=== PATIENT | female | born 1940 | race Caucasian/White ===

== ENCOUNTER 2023-11-07 14:43 | Outpatient (AMB) | payer MEDICARE, SELFPAY ==
[2023-11-07 14:44] VITALS: BP 172/66; PULSE 59; O2SAT 98; BMI 22.3
--- NOTE | 2023-11-07 14:44 | HO.NEPHOV ---
Vital Signs 11/07/23 14:44 Height 5 ft Weight 114 lb BMI 22.3 BP 172/66 H Blood Pressure Location Lt brachial Position Sitting Pulse 59 Pulse Source Pulse Oximeter Pulse Oximetry (%) 98 Oxygen Delivery Method Room Air Intake Visit Reasons: Continuing care- CKD/ confirmed Billing Specialist Required: No Accompanied by: Self / Same As Patient Allergies gluten Allergy (Unknown, Verified 11/07/23 14:46) Diarrhea milk protein Allergy (Unknown, Uncoded 11/05/23 14:30) Nausea and Vomiting tilactase Allergy (Unknown, Uncoded 11/05/23 14:30) Diarrhea HPI Comments Details: Amrita is a pleasant 82-year-old woman with a history of longstanding hypertension with 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 She has superimposed white coat effect. Overall she is done well since the last visit. No new complaints today. She has been monitoring blood pressure at home. Home blood pressure readings are excellent with most readings staying in the 120-130 mm Hg systolic. Occasionally she is got systolic in the 100 range. In no hypertensive episodes. She exercises regularly. She walks about 6 miles a day. She has on a gluten free diet She had leg edema while she was on amlodipine 10 mg a day. Currently she is on 5 mg b.i.d. without significant edema. [facility], [facility] Medical History (Updated 11/07/23 @ 15:03 by Zack Santiago MD) FH: CABG (coronary artery bypass surgery) Surgical History H/O: hysterectomy Hx of cataract surgery Family History Mother Stroke Heart disease Hypertension Review of Systems Const Denies fever(s) and Denies weight loss Card Denies chest pain Resp Denies cough and Denies hemoptysis GI Denies abdominal pain, Denies diarrhea and Denies nausea Musc Denies back pain Neuro Denies focal weakness Physical Exam Vital Signs: Last Vital Signs Pulse 59 11/07/23 14:44 BP 172/66 H 11/07/23 14:44 Pulse Ox 98 11/07/23 14:44 Oxygen Delivery Method Room Air 11/07/23 14:44 BMI result Body Mass Index 22.3 Const General: comfortable; No acute distress Orientation/consciousness: patient oriented x3 Eyes General: appearance normal, both eyes and all related structures Visual Clement: normal visual clement by confrontation Neck Neck: Yes supple and Yes no JVD Resp Effort & Inspection: normal respiratory effort and respiratory effort not decreased Auscultation: rhonchi Cardio Palpation: no palpable S3 and no palpable S4 Heart sounds: no rubs GI Inspection: Yes normal to inspection Palpation (GI): Soft to palpation Percussion: Yes normal to percussion Auscultation: normal bowel sounds General: Yes no CVA tenderness Back/Spine/Pelvis Back: no CVA tenderness Skin General skin exam: no petechiae and no purpura Neuro General: patient oriented x3 and no focal motor deficits Extrem General: No clubbing and No edema Results Reviewed Nephrology Results: No Data to Display Assessment & Plan Assessment & Plan (1) HTN (hypertension): Code(s): I10 - Essential (primary) hypertension Category: Medical Plan Amrita is a 82-year-old woman with a history of well-controlled hypertension based on home blood pressure readings. Office readings elevated due to superimposed white coat effect. At this point I have encouraged her to keep monitoring blood pressure at home. Stay on low-sodium diet I have not made any changes to the antihypertensive regimen. 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 Renal function stable with a creatinine 1.0. Continue overt nephrotoxic agents including NSAIDs in maintain A1c less than 7%. Orders: Orders Basic Metabolic Panel 5 Months I10 - Essential (primary) hypertension Coding Level of Care Code Est Pt Level 4 (20297) Diagnoses HTN (hypertension) I10
== END 2023-11-07 15:06 | disposition home or self-care (01) ==
PROVIDERS: PCP Nurse Practitioner Family; Visit Provider Internal Medicine Hypertension Specialist
DX: I10 Essential (primary) hypertension (principal)
CPT/HCPCS: 99214

== ENCOUNTER → 2023-11-07 14:43 | Outpatient (BNVA) | payer MEDICARE, SELFPAY | PROVIDERS: PCP Nurse Practitioner Family; Visit Provider Internal Medicine Hypertension Specialist | DX: I12.9 Hypertensive chronic kidney disease with stage 1 through stage 4 chronic kidney disease, or unspecified chronic kidney disease (principal); N18.9 Chronic kidney disease, unspecified | CPT/HCPCS: 99212 ==

== ENCOUNTER 2024-07-23 15:00 | Outpatient (AMB) | payer MEDICARE, SELFPAY ==
[2024-07-23 15:00] VITALS: BP 178/70; PULSE 61; O2SAT 98; BMI 20.9
--- NOTE | 2024-07-23 15:00 | HO.NEPHOV ---
Vital Signs 07/23/24 15:00 Height 5 ft Weight 107 lb BMI 20.9 BP 178/70 H Blood Pressure Location Lt brachial Position Sitting Pulse 61 Pulse Source Pulse Oximeter Pulse Oximetry (%) 98 Oxygen Delivery Method Room Air Intake Visit Reasons: R/S 06/18/2024/ Conf Customer Care Voice Consultant Required: No Accompanied by: Spouse Allergies gluten Allergy (Unknown, Verified 07/23/24 15:02) Diarrhea milk protein Allergy (Unknown, Uncoded 11/05/23 14:30) Nausea and Vomiting tilactase Allergy (Unknown, Uncoded 11/05/23 14:30) Diarrhea Medication List - Last Reconciled 07/23/24 by Zack Santiago MD amlodipine 5 mg PO BID clopidogrel 75 mg PO DAILY fenofibric acid (choline) 135 mg PO DAILY hydrochlorothiazide 25 mg PO DAILY L.acidoph,paracasei,B.animalis cells PO DAILY levothyroxine (Synthroid) 25 mcg PO DAILY lisinopril 40 mg PO DAILY metformin 500 mg PO DAILY qvxdevia-iloaozi-fgav-lutein 1 tab PO DAILY rosuvastatin 20 mg PO BEDTIME vitamin B complex 1 cap PO DAILY HPI Comments Details: Amrita is a pleasant 83-year-old woman with a history of longstanding hypertension with 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 She has superimposed white coat effect. Overall she is done well since the last visit. No new complaints today. She has been monitoring blood pressure at home. Home blood pressure readings are excellent with most readings staying in the 120-130 mm Hg systolic. Occasionally she is got systolic in the 100 range. In no hypertensive episodes. She exercises regularly. She walks about 6 miles a day. She has on a gluten free diet She had leg edema while she was on amlodipine 10 mg a day. Currently she is on 5 mg b.i.d. without significant edema. [facility] Medical History (Updated 11/07/23 @ 15:03 by Zack Santiago MD) FH: CABG (coronary artery bypass surgery) Surgical History H/O: hysterectomy Hx of cataract surgery Family History Mother Stroke Heart disease Hypertension Physical Exam Vital Signs: Last Vital Signs Pulse 61 07/23/24 15:00 Pulse Ox 98 07/23/24 15:00 Oxygen Delivery Method Room Air 07/23/24 15:00 BMI result Body Mass Index 20.9 Const General: comfortable; No acute distress Orientation/consciousness: patient oriented x3 Eyes General: appearance normal, both eyes and all related structures Visual Clement: normal visual clement by confrontation Neck Neck: Yes supple and Yes no JVD Resp Effort & Inspection: normal respiratory effort and respiratory effort not decreased Cardio Palpation: no palpable S3 and no palpable S4 Heart sounds: no rubs GI Inspection: Yes normal to inspection Palpation (GI): Soft to palpation Percussion: Yes normal to percussion Auscultation: normal bowel sounds General: Yes no CVA tenderness Back/Spine/Pelvis Back: no CVA tenderness Skin General skin exam: no petechiae and no purpura Neuro General: patient oriented x3 and no focal motor deficits Extrem General: No clubbing and No edema Results Reviewed Nephrology Results: No Data to Display Assessment & Plan Assessment & Plan (1) HTN (hypertension): Code(s): I10 - Essential (primary) hypertension Category: Medical Plan Amrita is a 83-year-old woman with a history of well-controlled hypertension based on home blood pressure readings. Office readings elevated due to superimposed white coat effect. At this point I have encouraged her to keep monitoring blood pressure at home. Stay on low-sodium diet I have not made any changes to the antihypertensive regimen. 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 Renal function stable with a creatinine 0.9 Continue to avoid nephrotoxic agents including NSAIDs and maintain A1c less than 7%. Coding Level of Care Code Est Pt Level 4 (02846) Diagnoses HTN (hypertension) I10
--- OUTSIDE RECORDS SUMMARY | 2024-07-23 18:30 | XMS_ITS | Encounter Summary ---
Author Organization [facility] Address [address] [place] [address] Care Team Providers Care Cross Country And Track And Field Coach Name Role Phone Latesha Lang APRN Primary Care Provider Audrey Farooq MD Unavailable [phone] Katlin Rodriguez APRN Unavailable [phone] Jorge Abreu MD Unavailable Donato Hale MD Unavailable [phone] Zack Santiago MD Unavailable [phone] Zack Santiago MD Unavailable [phone] Donato Hale MD Unavailable Encounter Details Date Type Department Care Team (Late st Contact Info) Description 02/16/2020 Scanned Document [address] [address] Provider, Generic Social History Tobacco Use Types Packs/Day Years Used Date Smoking Tobacco: Never Smokeless Tobacco: Never Alcohol Use Standard Drinks/Week Comments No 0 (1 standard drink = 0.6 oz pur e alcohol) Sex and Gender Information Value Date Recorded Sex Assigned at Not on file Gender Identity Not on file Sexual Orientation Not on file COVID-19 Exposure Response Date Recorded In the last month, have you been in contact with someone who was confirmed or suspected to have Coronavirus / COVID-19? No / Unsure 01/27/2020 4:27 PM EDT documented as of this encounter Plan of Treatment Upcoming Encounters Date Type Department Care Team (Late st Contact Info) Description 09/01/2024 11:00 AM EDT Office Visit [facility] [place] [address] [place] [address] Latesha Lang APRN [address] [facility], [place] [id number] documented as of this encounter Visit Diagnoses Not on filedocumented in this encounter Care Teams Cross Country And Track And Field Coach Relationship Specialty Start Date End Date Latesha Lang APRN [address] [place] [address] PCP - General Family Medicine 01/18/15 Audrey aFrooq MD 1244 [facility], [place] [id number] Physician Ophthalmology 03/13/18 02/27/24 Katlin Rodriguez APRN [address] [address] Tube Washer 03/13/18 02/27/24 Jorge Abreu MD [address] [place] [address] [place] [address] Physician Urology 03/13/18 02/27/24 Donato Hale MD [address] [place], [place] [address] [address] [place] [address] Mold Repair Technician Internal Medicine 03/13/18 11/15/22 Zack Santiago MD [address] [phone] Internal Medicine 11/24/21 11/15/22 Zack Santiago MD 100 [facility] [address] [place] [address] Internal Medicine 11/24/21 02/27/24 Donato Hale MD 100 [facility] [address] [place] [address] Mold Repair Technician Internal Medicine 11/16/22 documented as of this encounter
--- OUTSIDE RECORDS SUMMARY | 2024-07-23 18:31 | XMS_ITS | Encounter Summary ---
Author Organization [facility] Address [address] [place] [address] Care Team Providers Care Senior Consumer Insights Consultant Name Role Phone Latesha Lang APRN Primary Care Provider [phone] Audrey Farooq MD Unavailable [phone] Katlin Rodriguez APRN Unavailable [phone] Jorge Abreu MD Unavailable Donato Hale MD Unavailable Zack Santiago MD Unavailable [phone] Zack Santiago MD Unavailable [phone] Donato Hale MD Unavailable Encounter Details Date Type Department Care Team (Late Contact Info) Description 03/27/2016 Scanned Document [address] [address] Provider, Generic Social History Tobacco Use Types Packs/Day Years Used Date Smoking Tobacco: Never Smokeless Tobacco: Never Alcohol Use Standard Drinks/Week Comments No 0 (1 standard drink = 0.6 oz pur e alcohol) Sex and Gender Information Value Date Recorded Sex Assigned at Not on file Gender Identity Not on file Sexual Orientation Not on file documented as of this encounter Plan of Treatment Upcoming Encounters Date Type Department Care Team ([facility] Contact Info) Description 09/01/2024 11:00 AM EDT Office Visit [address] [place] [phone] Latesha Lang APRN [address] [place] [address] [place], [place] [id number] documented as of this encounter Visit Diagnoses Not on filedocumented in this encounter Care Teams Senior Consumer Insights Consultant Relationship Specialty Start Date End Date Latesha Lang APRN [address] [place] [facility], [place] [id number] PCP - General Family Medicine 01/18/15 Audrey Farooq MD 1244 [facility], [place] [id number] Physician Ophthalmology 03/13/18 02/27/24 Katlin Rodriguez APRN [address] [address] Construction Job Titles 03/13/18 02/27/24 Jorge Abreu MD [address] [place] [address] [place] [address] Physician Urology 03/13/18 02/27/24 Donato Hale MD [address] [place] [address] [place] [address] Supervisor [employer]zene Refining Internal Medicine 03/13/18 11/15/22 Zack Santiago MD [address] [facility] [address] [place] [address] Internal Medicine 11/24/21 11/15/22 Zack Santiago MD [address] [facility] [address] [place] [address] Internal Medicine 11/24/21 02/27/24 Donato Hale MD 100 [facility] [address] [place] [address] Supervisor [employer] Internal Medicine 11/16/22 documented as of this encounter
--- OUTSIDE RECORDS SUMMARY | 2024-07-23 18:31 | XMS_ITS | Encounter Summary ---
Author Organization [facility] [facility] Address [address] [place] [address] Care Team Providers Care Surveillance Monitor Name Role Phone Latesha Lang APRN Primary Care Provider [phone] Audrey Farooq MD Unavailable [phone] Katlin Rodriguez APRN Unavailable [phone] Jorge Abreu MD Unavailable [phone] Donato Hale MD Unavailable Zack Santiago MD Unavailable [phone] Zack Santiago MD Unavailable [phone] Donato Hale MD Unavailable Encounter Details Date Type Department Care Team (Late Contact Info) Description 02/14/2017 Scanned Document [address] [address] Provider, Generic Social History Tobacco [...] Upcoming Encounters Date Type Department Care Team ([facility] Contact Info) Description 09/01/2024 11:00 AM EDT Office Visit [address] [place] [address] Latesha Lang APRN [address] [place] [address] documented as of this encounter Procedures Procedure Name Priority Date/Time Associated Diagnosis Comments LAB RESULT 02/14/2017 documented in this encounter Results * LAB RESULT (02/14/2017) Narrative 02/14/2017 Ordered by an unspecified provider. Generic Provider HX AMB PROCEDURES documented in this encounter Visit Diagnoses Not on filedocumented in this encounter Care Teams Surveillance Monitor Relationship Specialty Start Date End Date Latesha Lang APRN [address] [place] [address] PCP - General Family Medicine 01/18/15 Audrey Farooq MD [address] [place] [address], [place] [address] Physician Ophthalmology 03/13/18 02/27/24 Katlin Rodriguez APRN [address] [place] [address] Rod Pointer 03/13/18 02/27/24 Jorge Abreu MD [address] [place] [address] Physician Urology 03/13/18 02/27/24 Donato Hale MD [address] [place] [address] Manager Cargo Internal Medicine 03/13/18 11/15/22 Zack Santiago MD 100 [employer] [address] [place] [address] Internal Medicine 11/24/21 11/15/22 Zack Santiago MD 100 [facility] [address] [place] [address] Internal Medicine 11/24/21 02/27/24 Donato Hale MD 100 [facility] [address] [place] [address] Manager Cargo Internal Medicine 11/16/22 documented as of this encounter
--- OUTSIDE RECORDS SUMMARY | 2024-07-23 18:31 | XMS_ITS | Encounter Summary ---
Author Organization [facility] Address [address] [place] [address] Care Team Providers Care Switch Operator Name Role Phone Latesha Lang APRN Primary Care Provider Audrey Farooq MD Unavailable [phone] Katlin Rodriguez APRN Unavailable [phone] Jorge Abreu MD Unavailable Donato Hale MD Unavailable Zack Santiago MD Unavailable [phone] Zack Santiago MD Unavailable [phone] Donato Hale MD Unavailable [phone] Encounter Details Date Type Department Care Team (Late Contact Info) Description 03/05/2017 Scanned Document [address] [address] Provider, Generic Social History Tobacco [...] Upcoming Encounters Date Type Department Care Team ([facility] Contact Info) Description 09/01/2024 11:00 AM EDT Office Visit [address] [place] [address] Latesha Lang APRN 12[address] [place] [address] documented as of this encounter Procedures Procedure Name Priority Date/Time Associated Diagnosis Comments LAB RESULT 03/05/2017 documented in this encounter Results * LAB RESULT (03/05/2017) Narrative 03/05/2017 Ordered by an unspecified provider. Generic Provider HX AMB PROCEDURES documented in this encounter Visit Diagnoses Not on filedocumented in this encounter Care Teams Switch Operator Relationship Specialty Start Date End Date Latesha Lang APRN 12[address] [place] [address] PCP - General Family Medicine 01/18/15 Audrey Farooq MD [address] [place] [address], [place] [address] Physician Ophthalmology 03/13/18 02/27/24 Katlin Rodriguez APRN [address] [place] [address] Public Accountant 03/13/18 02/27/24 Jorge Abreu MD [address] [place] [address] Physician Urology 03/13/18 02/27/24 Donato Hale MD [address] [place] [address] Brick Extruder Operator Internal Medicine 03/13/18 11/15/22 Zack Santiago MD 100 [facility] [address] [place] [address] Internal Medicine 11/24/21 11/15/22 Zack Santiago MD 100 [facility] [address] [place] [address] Internal Medicine 11/24/21 02/27/24 Donato Hale MD 100 [facility] [address] [place] [address] Brick Extruder Operator Internal Medicine 11/16/22 documented as of this encounter
--- OUTSIDE RECORDS SUMMARY | 2024-07-23 18:31 | XMS_ITS | Encounter Summary ---
Author Organization [facility] Address [address] [place] [address] Care Team Providers Care Saas Architect Name Role Phone Latesha Lang APRN Primary Care Provider [phone] Audrey Farooq MD Unavailable [phone] Katlin Rodriguez APRN Unavailable [phone] Jorge Abreu MD Unavailable [phone] Donato Hale MD Unavailable Zack Santiago MD Unavailable [phone] Zack Santiago MD Unavailable [phone] Donato Hale MD Unavailable Encounter Details Date Type Department Care Team (Late st Contact Info) Description 05/25/2021 Scanned Document [address] [address] Urgent Care, Scan Social History Tobacco Use Types Packs/Day Years [...] have Coronavirus / COVID-19? No / Unsure 04/29/2021 2:55 PM EST documented as of this encounter Plan of Treatment Upcoming Encounters Date Type Department Care Team (Late st Contact Info) Description 09/01/2024 11:00 AM EDT Office Visit [facility] [address] [facility] [place] [address] Latesha Lang APRN 1244 [facility], [place] [phone] documented as of this encounter Visit Diagnoses Not on filedocumented in this encounter Care Teams Saas Architect Relationship Specialty Start Date End Date Latesha Lang APRN 1244 [place] [address] PCP - General Family Medicine 01/18/15 [place] [address] [place] [address], [place] [id number] Physician Ophthalmology 03/13/18 02/27/24 Katlin Rodriguez APRN 100 [facility] [address] [place] [address] Medtronics Technician 03/13/18 02/27/24 Jorge Abreu MD [address] [place], [place] [address] [place] [address] Physician Urology 03/13/18 02/27/24 Donato Hale MD [address] [place], [place] [address] [address] [place] [address] Diesel Tractor Engine Mechanic Internal Medicine 03/13/18 11/15/22 Zack Santiago MD [address] [phone] Internal Medicine 11/24/21 11/15/22 Zack Santiago MD 100 [facility] [address] [place] [address] Internal Medicine 11/24/21 02/27/24 Donato Hale MD 100 [facility] [email or web address] [facility] [address] [place] [address] Diesel Tractor Engine Mechanic Internal Medicine 11/16/22 documented as of this encounter
--- OUTSIDE RECORDS SUMMARY | 2024-07-23 18:31 | XMS_ITS | Encounter Summary ---
Author Organization [facility] Address [address] [place] [address] Care Team Providers Care Wood Club Neck Whipper Name Role Phone Latesha Lang APRN Primary Care Provider Audrey Farooq MD Unavailable Katlin Rodriguez APRN Unavailable Jorge Abreu MD Unavailable [phone] Donato Hale MD Unavailable [phone] Zack Santiago MD Unavailable [phone] Zack Santiago MD Unavailable [phone] Donato Hale MD Unavailable Encounter Details Date Type Department Care Team (Late st Contact Info) Description 07/04/2018 Scanned Document [facility] [address] [place] [address] Latesha Lang APRN [address] [place] [address] Social History Tobacco Use Types Packs/Day Years [...] Description 09/01/2024 11:00 AM EDT Office Visit [facility] [place] [address] [place] [address] Latesha Lang APRN [address] [facility], [place] [phone] documented as of this encounter Visit Diagnoses Not on filedocumented in this encounter Care Teams Wood Club Neck Whipper Relationship Specialty Start Date End Date Latesha Lang APRN 1244 [place] [facility], [place] [phone] PCP - General Family Medicine 01/18/15 Audrey Farooq MD [address] [facility], [place] [phone] Physician Ophthalmology 03/13/18 02/27/24 Katlin Rodriguez APRN [address] [address] Esl Instructional Assistant 03/13/18 02/27/24 Jorge Abreu MD [address] [place], [place] [address] [address] [place] [address] Physician Urology 03/13/18 02/27/24 Donato Hale MD [address] [place], [place] [address] [address] [place] [address] Entry Level Civil Engineer Internal Medicine 03/13/18 11/15/22 Zack Santiago MD [address] [phone] Internal Medicine 11/24/21 11/15/22 Zack Santiago MD 100 [facility] [address] [place] [address] Internal Medicine 11/24/21 02/27/24 Donato Hale MD 100 [facility] [address] [place] [address] Entry Level Civil Engineer Internal Medicine 11/16/22 documented as of this encounter
--- OUTSIDE RECORDS SUMMARY | 2024-07-23 18:31 | XMS_ITS | Encounter Summary ---
Author Organization [facility] Address [address] [place] [address] Care Team Providers Care Account Developer Name Role Phone Latesha Lang APRN Primary Care Provider [phone] Audrey Farooq MD Unavailable [phone] Katlin Rodriguez APRN Unavailable [phone] Jorge Abreu MD Unavailable Donato Hale MD Unavailable Zack Santiago MD Unavailable [phone] Zack Santiago MD Unavailable [phone] Donato Hale MD Unavailable Encounter Details Date Type Department Care Team (Late Contact Info) Description 03/06/2017 Scanned Document [address] [address] Provider, Generic Social History Tobacco [...] Upcoming Encounters Date Type Department Care Team ([facility] Contact Info) Description 09/01/2024 11:00 AM EDT Office Visit [address] [place] [id number] Latesha Lang APRN [address] [place] [address] [place], [place] [id number] documented as of this encounter Visit Diagnoses Not on filedocumented in this encounter Care Teams Account Developer Relationship Specialty Start Date End Date Latesha Lang APRN [address] [place] [facility], [place] [id number] PCP - General Family Medicine 01/18/15 Audrey Farooq MD 1244 [facility], [place] [id number] Physician Ophthalmology 03/13/18 02/27/24 Katlin Rodriguez APRN [address] [address] Rail Gang Supervisor 03/13/18 02/27/24 Jorge Abreu MD [address] [place] [address] [place] [address] Physician Urology 03/13/18 02/27/24 Donato Hale MD [address] [place] [address] [place] [address] Tax Intern Internal Medicine 03/13/18 11/15/22 Zack Santiago MD [address] [place] [address] Internal Medicine 11/24/21 11/15/22 Zack Santiago MD [address] [place] [address] Internal Medicine 11/24/21 02/27/24 Donato Hale MD [address] [facility] 200 [place] [address] Tax Intern Internal Medicine 11/16/22 documented as of this encounter
--- OUTSIDE RECORDS SUMMARY | 2024-07-23 18:31 | XMS_ITS ---
Author Name [facility] Organization Unknown Results Test Name/Text Value Interpretation Date Range Source GLUCOSE BLDC GLUCOMTR MCNC 146mg/dL Normal [id number] 70 - 199 [facility] CREAT SERPL MCNC 0.8mg/dL Normal [id number] 0.5 - 1 [facility] SODIUM SERPL SCNC 140mmol/L Normal [id number] 135 - 145 [facility] GLUCOSE SERPL MCNC 114mg/dL Normal [id number] 70 - 199 [facility] Glomerular filtration rate/1.73 sq M. predicted 74 Normal [id number] 60 - [facility] CHLORIDE SERPL SCNC 105mmol/L Normal [id number] 98 - 107 [facility] HCO3 SER SCNC 27mmol/L Normal [id number] 24 - 32 CTT HSFRAN POTASSIUM SERPL SCNC 3.5mmol/L Normal [id number] 3.5 - 5.1 [facility] ANION GAP SERPL SCNC 8mmol/L Normal [id number] 5 - 14 [facility] BUN SERPL MCNC 16mg/dL Normal [id number] 7 - 17 [place] [facility] CALCIUM SERPL MCNC 8.8mg/dL Normal [id number] 8.4 - 10.2 [facility] GLUCOSE BLDC GLUCOMTR MCNC 122mg/dL Normal [id number] 70 - 199 [facility] RBC NO. BLD AUTO 4.35M/uL Normal [id number] 4.2 - 5.4 [facility] MCH RBC QN AUTO 29.7pg Normal [id number] 25 - 33 C TTHSFRAN MCHC RBC AUTO MCNC 34g/dL Normal [id number] 32 - 36 [facility] HGB BLD MCNC 12.9g/dL Normal [id number] 12.5 - 16 [facility]AN WBC NO. BLD AUTO 4.1K/uL Normal [id number] 4 - 10.5 [facility] HCT VFR BLD AUTO 38% Normal [id number] 37 - 47 [facility] MCV RBC AUTO 87.3fL Normal [id number] 78 - 100 [facility] SFRAN RDW RBC AUTO RTO 14.2% Normal [id number] 12.1 - 16.2 [facility] PLATELET NO. BLD AUTO 164K/uL Normal [id number] 150 - 450 [facility] PMV BLD AUTO 9.7fL Normal [id number] 7.4 - 11.4 [facility] GLUCOSE BLDC GLUCOMTR MCNC 121mg/dL Normal 70 - 199 [facility] Troponin I SerPl HS-mCnc 12ng/L Normal [id number] 0 - 14 [facility] CREAT SERPL MCNC 1.2mg/dL Above high normal [id number] 0. 5 - 1 [facility] CALCIUM SERPL MCNC 10mg/dL Normal [id number] 8.4 - 10.2 [facility] SODIUM SERPL SCNC 139mmol/L Normal [id number] 135 - 145 [facility] ANION GAP SERPL SCNC 8mmol/L Normal [id number] 5 - 14 [facility] Glomerular filtration rate/1.73 sq M. predicted 45 Below low normal [id number] 60 - CT[facility] HCO3 SER SCNC 29mmol/L Normal [id number] 24 - 32 [facility] GLUCOSE SERPL MCNC 150mg/dL Normal [id number] 70 - 199 [facility] BUN SERPL MCNC 25mg/dL Above high normal [id number] 7 - 17 [facility] CHLORIDE SERPL SCNC 102mmol/L Normal [id number] 98 - 107 [facility] POTASSIUM SERPL SCNC 3.7mmol/L Normal [id number] 3.5 - 5.1 [facility] Troponin I SerPl HS-mCnc 12ng/L Normal [id number] 0 - 14 [facility] GLUCOSE BLDC GLUCOMTR MCNC 117mg/dL Normal [id number] 70 - 199 [facility] PLATELET NO. BLD AUTO 224K/uL Normal [id number] 150 - 450 [facility] RBC NO. BLD AUTO 4.75M/uL Normal [id number] 4.2 - 5.4 [facility] LYMPHOCYTES NO. BLD AUTO 1.8K/uL Normal [id number] 1 - 3.2 [facility] EOSINOPHIL NO. BLD AUTO 0.1K/uL Normal [id number] 0 - 0.5 [facility] MCH RBC QN AUTO 29.3pg Normal [id number] 25 - 33 C T[facility] MCHC RBC AUTO MCNC 32.9g/dL Normal [id number] 32 - 36 [facility] MONOCYTES NFR BLD AUTO 8.8% Normal [id number] 2 - 12 [facility] IMMATURE GRANULOCYTE, ABSOLUTE 0.01k/uL Normal [id number] - 0.1 [facility] LYMPHOCYTES NFR BLD AUTO 38.4% Normal 20 - 48 [facility] EOSINOPHIL NFR BLD AUTO 1.3% Normal [id number] 0 - 6 [facility] HGB BLD MCNC 13.9g/dL Normal [id number] 12.5 - 16 [facility] NEUTROPHILS NO. BLD AUTO 2.4K/uL Normal [id number] 1.8 - 7.8 [facility] WBC NO. BLD AUTO 4.6K/uL Normal [id number] 4 - 10.5 [facility] BASOPHILS NFR BLD AUTO 0.4% Normal [id number] 0 - 2 [facility] MONOCYTES NO. BLD AUTO 0.4K/uL Normal [id number] 0 - 0.8 [facility] MCV RBC AUTO 89.1fL Normal [id number] 78 - 100 [facility] NEUTROPHILS NFR BLD AUTO 50.9% Normal 44 - 74 [facility] IMMATURE GRANULOCYTE, PERCENT 0.2% Normal [id number] 0 - 1 [facility] BASOPHILS IN BLOOD BY AUTOMATED COUNT 0K/uL Normal [id number] 0 - 0.2 [facility] PMV BLD AUTO 11.4fL Normal [id number] 7.4 - 11.4 [facility] RDW RBC AUTO RTO 14% Normal [id number] 12.1 - 16.2 [facility] HCT VFR BLD AUTO 42.3% Normal [id number] 37 - 47 [facility] LDLc SerPl Calc-mCnc 70mg/dL Normal [id number] 50 - 130 [facility] TRIGL SERPL-MCNC 112mg/dL Normal [id number] - 150 [facility] CHOLEST SERPL-MCNC 145mg/dL Normal [id number] 0 - 200 [facility] HDLC SERPL-MCNC 53mg/dL Normal [id number] 33 - 92 C [facility] TSH SerPl DL<=0.005 mIU/L-aCnc 3.84uIU/mL Normal [id number] 0.45 - 5.33 [facility] CALCIUM SERPL MCNC 9.8mg/dL Normal [id number] 8.4 - 10.2 [facility] ANION GAP SERPL SCNC 6mmol/L Normal [id number] 5 - 14 [facility] Glomerular filtration rate/1.73 sq M. predicted 57 Below low normal [id number] 60 - [facility] HCO3 SER SCNC 30mmol/L Normal [id number] 24 - 32 CTT HS AST SERPL CCNC 24U/L Normal [id number] 5 - 40 [facility] BUN SERPL MCNC 21mg/dL Above high normal [id number] 7 - 17 [facility] CHLORIDE SERPL SCNC 102mmol/L Normal [id number] 98 - 107 [facility] ALBUMIN SERPL BCG MCNC 4.3g/dL Normal [id number] 3.5 - 5 [facility] ALP SERPL-CCNC 40U/L Normal [id number] 34 - 104 CT [facility] ALT SERPL CCNC 16U/L Normal [id number] 7 - 52 [facility] CREAT SERPL MCNC 1mg/dL Normal [id number] 0.5 - 1 [facility] SODIUM SERPL SCNC 138mmol/L Normal [id number] 135 - 145 [facility] PROT SERPL MCNC 6.7g/dL Normal [id number] 6.4 - 8.5 C [facility] BILIRUB SERPL MCNC 0.6mg/dL Normal [id number] 0.3 - 1 [facility] GLUCOSE P FAST SERPL MCNC 117mg/dL Above high normal [id number] 70 - 99 [facility] POTASSIUM SERPL SCNC 4.2mmol/L Normal [id number] 3.5 - 5.1 [facility] PLATELET NO. BLD AUTO 183K/uL Normal [id number] 150 - 450 [facility] RBC NO. BLD AUTO 4.75M/uL Normal [id number] 4.2 - 5.4 [facility] NUCLEATED RBC 0% Normal [id number] 0 - 1 CTT HS LYMPHOCYTES NO. BLD AUTO 1.6K/uL Normal [id number] 1 - 3.2 [facility] EOSINOPHIL NO. BLD AUTO 0.2K/uL Normal [id number] 0 - 0.5 [facility] MCH RBC QN AUTO 29.1pg Normal [id number] 25 - 33 C [facility] MCHC RBC AUTO MCNC 32.9g/dL Normal [id number] 32 - 36 [facility] MONOCYTES NFR BLD AUTO 7.5% Normal [id number] 2 - 12 [facility] IMMATURE GRANULOCYTE, ABSOLUTE 0.01k/uL Normal [id number] - 0.1 [facility] LYMPHOCYTES NFR BLD AUTO 36.4% Normal [id number] 20 - 48 [facility] EOSINOPHIL NFR BLD AUTO 4.5% Normal [id number] 0 - 6 [facility] HGB BLD MCNC 13.8g/dL Normal [id number] 12.5 - 16 [facility] NEUTROPHILS NO. BLD AUTO 2.2K/uL Normal [id number] 1.8 - 7.8 [facility] WBC NO. BLD AUTO 4.4K/uL Normal [id number] 4 - 10.5 [facility] BASOPHILS NFR BLD AUTO 0.7% Normal [id number] 0 - 2 [facility] MONOCYTES NO. BLD AUTO 0.3K/uL Normal [id number] 0 - 0.8 [facility] MCV RBC AUTO 88.2fL Normal [id number] 78 - 100 [facility] NEUTROPHILS NFR BLD AUTO 50.7% Normal [id number] 44 - 74 [facility] IMMATURE GRANULOCYTE, PERCENT 0.2% Normal [id number] 0 - 1 [facility] BASOPHILS IN BLOOD BY AUTOMATED COUNT 0K/uL Normal [id number] 0 - 0.2 [facility] PMV BLD AUTO 10.9fL Normal [id number] 7.4 - 11.4 [facility] RDW RBC AUTO RTO 14% Normal [id number] 12.1 - 16.2 [facility] HCT VFR BLD AUTO 41.9% Normal [id number] 37 - 47 [facility] Service [facility] XXX-Imp Cepheid GeneXpert (RT-PCR) [facility] Normal [id number] [facility] FLUBV RNA Nph Ql NAV+non-probe NEGATIVE Abnormal [id number] [facility] RSV RNA Nph Ql NAV+non-probe NEGATIVE Abnormal [id number] [facility] FLUAV RNA Nph Ql NAV+non-probe NEGATIVE Abnormal [id number] [facility] GLUCOSE BLDC GLUCOMTR MCNC 104mg/dL Normal [id number] 70 - 199 [facility] SPECIMEN SOURCE XXX NASOPHARYNGEAL Normal [id number] [facility] History of Medication Use Medication Directions Dispensed Refills Start Date End Date Stat B Complex Vitamins (VITAMIN-B COMPLEX PO) 1 tablet daily. active hydroCHLOROthiazide (MICROZIDE) 12.5 MG capsule Take 1 capsule (12.5 mg total) by mouth daily. active levothyroxine (SYNTHROID, LEVOXYL) tablet 25 mcg Take 1 tablet (25 mcg total) by mouth every morning on an empty stomach. active Biotin 5 MG Cap Take 1 capsule by mouth. active predniSONE (DELTASONE) tablet 20 mg Take 2 tablets (40 mg total) by mouth daily for 4 days. 08/12/2023 active zinc gluconate 50 MG tablet Take 50 mg by mouth. active rosuvastatin (CRESTOR) 20 MG tablet 06/07/2021 active lisinopril (PRINIVIL,ZESTRIL) tablet 40 mg TAKE ONE TABLET BY MOUTH EVERY DAY 03/12/2023 active fluticasone (FloNASE) 50 mcg/spray nasal spray 1 spray into each nostril 2 (two) times a day. 06/14/2021 active metFORMIN (GLUCOPHAGE-XR) 500 MG 24 hr tablet TAKE ONE TABLET BY MOUTH EVERY DAY IN THE MORNING WITH BREAKFAST 11/22/2021 active hydroCHLOROthiazide (MICROZIDE) 12.5 MG capsule Take 12.5 mg by mouth daily. active fenofibrate (TRICOR) 145 MG tablet Take 145 mg by mouth daily. active lisinopril (PRINIVIL,ZeSTRIL) 40 MG tablet Take 1 tablet (40 mg total) by mouth daily. 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 7 ProblemAct [facility] S/P CABG x 4 active EncounterDiagnosisAct [facility] Post PTCA active EncounterDiagnosisAct [facility] Glaucoma of both eyes active 2015-12-28 3 ProblemAct [facility] Acquired hypothyroidism active 2019-10-28 3 ProblemAct [facility] Coronary atherosclerosis active 2014-10 6 ProblemAct [facility] Familial hypercholesterolemia active 8 ProblemAct [facility] Hypertension active ProblemAct [facility] MG Stage 2 chronic kidney disease active 2021-09-25 0 ProblemAct [facility] Dysmetabolic syndrome X active 2014-10-26 6 ProblemAct [facility] Female stress incontinence active 2018-04-28 8 ProblemAct [facility] Immunizations Vaccine Date Source Lot Number Status Covid-19 (Moderna 12+) 100mcg/0.5mL dosage 06/07/2020 [facility] [id number] completed Covid-19 mRNA Vaccine - Mode rna 0.25 mL Booster 04/29/2021 [facility] [id number] completed Pneumococcal Polysaccharide 23-Valent 07/24/2013 [facility] completed Influenza Inactivated/Split Preservative Free IM 03/12/2013 [facility] [id number] completed Pneumococcal Polysaccharide 23-Valent 03/09/2010 [facility] completed Influenza Inactivated/Split Preservative Free IM 03/30/2018 [facility] completed Influenza Inactivated Quadrivalent Preservative Free IM 03/05/2021 [facility] [id number] completed Influenza, Unspecified 03/30/2018 [facility] co mpleted Pneumococcal Conjugate 13-Valent 01/18/2016 [facility] [id number] completed DTaP 5 01/10/2014 [facility] [id number] completed Covid-19 (Moderna 12+) 100mcg/0.5mL dosage 07/06/2020 [facility] [id number] completed Td (Tenivac) 03/25/2022 [facility] [id number] completed Influenza Inactivated/Split Preservative Free IM 03/25/2019 [facility] completed Influenza Inactivated/Split Preservative Free IM 03/17/2014 [facility] [id number] completed Influenza Inactivated/Split with Preservative IM 03/28/2021 [facility] completed Influenza Inactivated Quadrivalent Preservative Free IM 03/17/2020 [facility] [id number] completed Influenza, Unspecified 03/25/2019 [facility] co mpleted Influenza Inactivated/Split Preservative Free IM 03/16/2015 [facility] [id number] - FLUARIX 0.5 ML SYRINGE completed
--- OUTSIDE RECORDS SUMMARY | 2024-07-23 18:31 | XMS_ITS | Encounter Summary ---
Author Organization [facility] Address [address] [facility] [place] [address] Care Team Providers Care Chain Maker Machine Name Role Phone Latesha Lang APRN Primary Care Provider Audrey Farooq MD Unavailable [phone] Katlin Rodriguez APRN Unavailable [phone] Jorge Abreu MD Unavailable Donato Hale MD Unavailable [phone] Zack Santiago MD Unavailable [phone] Zack Santiago MD Unavailable [phone] Donato Hale MD Unavailable Encounter Details Date Type Department Care Team (Late st Contact Info) Description 07/04/2018 Scanned Document [facility] [address] [place] [address] Latesha Lang APRN 12[address] [place] [address] Social History Tobacco Use Types [...] Description 09/01/2024 11:00 AM EDT Office Visit [facility] [place] [address] [place] [address] Latesha Lang APRN [address] [place] [facility], [place] [id number] documented as of this encounter Visit Diagnoses Not on filedocumented in this encounter Care Teams Chain Maker Machine Relationship Specialty Start Date End Date Latesha Lang APRN [address] [place] [facility], [place] [id number] PCP - General Family Medicine 01/18/15 Audrey Farooq MD 1244 [facility], [place] [phone] Physician Ophthalmology 03/13/18 02/27/24 Katlin Rodriguez APRN [address] [address] Loss Prevention Supervisor 03/13/18 02/27/24 Jorge Abreu MD [address] [place], [place] [address] [address] [place] [address] Physician Urology 03/13/18 02/27/24 Donato Hale MD [address] [place], [place] [address] [address] [place] [address] Nurse Anesthesia Program Director Internal Medicine 03/13/18 11/15/22 Zack Santiago MD [address] [id number] Internal Medicine 11/24/21 11/15/22 Zack Santiago MD 100 [facility] [address] [place] [address] Internal Medicine 11/24/21 02/27/24 Donato Hale MD 100 [facility] [address] [place] [address] Nurse Anesthesia Program Director Internal Medicine 11/16/22 documented as of this encounter
--- OUTSIDE RECORDS SUMMARY | 2024-07-23 18:31 | XMS_ITS | Encounter Summary ---
Author Organization [facility] Address 100 [place] [address] Care Team Providers Care Materials Management Supervisor Name Role Phone Latesha Lang APRN Primary Care Provider [phone] Donato Hale MD Unavailable Encounter Details Date Type Department Care Team (Late Contact Info) Description 03/14/2024 Scanned Document [facility] [address] [place] [address] Latesha Lang APRN 12[address] [place] [address] Social History Tobacco Use Types [...] Encounters Date Type Department Care Team (Late Contact Info) Description 09/01/2024 11:00 AM EDT [facility] Visit [facility] 1244 [facility] [place] [address] Latesha Lang APRN [address] [place] [address] documented as of this encounter Visit Diagnoses Not on filedocumented in this encounter Care Teams Materials Management Supervisor Relationship Specialty Start Date End Date Latesha Lang APRN [address] [place] [address] PCP - General Family Medicine 01/18/15 Donato Hale MD [address] [place] [address] [employer] Internal Medicine 11/16/22 documented as of this encounter
--- OUTSIDE RECORDS SUMMARY | 2024-07-23 18:31 | XMS_ITS | Encounter Summary ---
Author Organization [facility] Address [address] [place] [address] Care Team Providers Care Wildlife Forensic Geneticist Name Role Phone Latesha Lang APRN Primary Care Provider Audrey Farooq MD Unavailable [phone] Katlin Rodriguez APRN Unavailable [phone] Jorge Abreu MD Unavailable Donato Hale MD Unavailable Zack Santiago MD Unavailable [phone] Zack Santiago MD Unavailable [phone] Donato Hale MD Unavailable Encounter Details Date Type Department Care Team (Late Contact Info) Description 11/19/2015 Scanned Document [address] [address] Provider, Generic Social History Tobacco Use Types Packs/Day Years Used Date Smoking Tobacco: Never Alcohol Use Standard Drinks/Week Comments [...] 09/01/2024 11:00 AM EDT Office Visit [address] [place] [phone] Latesha Lang APRN [address] [place] [facility], [place] [id number] documented as of this encounter Visit Diagnoses Not on filedocumented in this encounter Care Teams Wildlife Forensic Geneticist Relationship Specialty Start Date End Date Latesha Lang APRN [address] [place] [facility], [place] [id number] PCP - General Family Medicine 01/18/15 Audrey Farooq MD 1244 [facility], [place] [id number] Physician Ophthalmology 03/13/18 02/27/24 Katlin Rodriguez APRN [address] [address] Developer Programmer Analyst 03/13/18 02/27/24 Jorge Abreu MD [address] [place] [address] Physician Urology 03/13/18 02/27/24 Donato Hale MD [address] [place] [address] Construction Recruiter Internal Medicine 03/13/18 11/15/22 Zack Santiago MD [address] [employer] [address] [place] [address] Internal Medicine 11/24/21 11/15/22 Zack Santiago MD [address] [employer] [address] [place] [address] Internal Medicine 11/24/21 02/27/24 Donato Hale MD 100 [facility] 200 [place] [address] Construction Recruiter Internal Medicine 11/16/22 documented as of this encounter
--- OUTSIDE RECORDS SUMMARY | 2024-07-23 18:31 | XMS_ITS | Encounter Summary ---
Author Organization [facility] Address [address] [place] [address] Care Team Providers Care Box Finisher Name Role Phone Latesha Lang APRN Primary Care Provider Audrey Farooq MD Unavailable [phone] Katlin Rodriguez APRN Unavailable [phone] Jorge Abreu MD Unavailable Donato Hale MD Unavailable [phone] Zack Santiago MD Unavailable [phone] Zack Santiago MD Unavailable [phone] Donato Hale MD Unavailable [phone] Encounter Details Date Type Department Care Team (Late Contact Info) Description 04/30/2015 Scanned Document [address] [address] Provider, Generic Social History Tobacco [...] Description 09/01/2024 11:00 AM EDT Office Visit [address] [place] [phone] Latesha Lang APRN [address] [facility], [place] [id number] documented as of this encounter Visit Diagnoses Not on filedocumented in this encounter Care Teams Box Finisher Relationship Specialty Start Date End Date Latesha Lang APRN [address] [facility], [place] [phone] PCP - General Family Medicine 01/18/15 Audrey Farooq MD 1244 [facility], [place] [phone] Physician Ophthalmology 03/13/18 02/27/24 Katlin Rodriguez APRN [address] [address] Seater Grinder 03/13/18 02/27/24 Jorge Abreu MD [address] [place] [address] Physician Urology 03/13/18 02/27/24 Donato Hale MD [address] [place] [address] Collector Of Internal Revenue Internal Medicine 03/13/18 11/15/22 Zack Santiago MD [address] [employer] [address] [place] [address] Internal Medicine 11/24/21 11/15/22 Zack Santiago MD [address] [employer] [employer] [address] [place] [address] Internal Medicine 11/24/21 02/27/24 Donato Hale MD 100 [facility] [address] [place] [address] Collector Of Internal Revenue Internal Medicine 11/16/22 documented as of this encounter
--- OUTSIDE RECORDS SUMMARY | 2024-07-23 18:31 | XMS_ITS | Encounter Summary ---
Author Organization [facility] Address [address] [place] [address] Care Team Providers Care Car Lubricator Name Role Phone Latesha Lang APRN Primary Care Provider Audrey Farooq MD Unavailable [phone] Katlin Rodriguez APRN Unavailable [phone] Jorge Abreu MD Unavailable Donato Hale MD Unavailable Zack Santiago MD Unavailable [phone] Zack Santiago MD Unavailable [phone] Donato Hale MD Unavailable Encounter Details Date Type Department Care Team (Late Contact Info) Description 03/12/2018 Scanned Document [address] [address] Provider, Generic Social History Tobacco [...] Upcoming Encounters Date Type Department Care Team ([facility] Contact Info) Description 09/01/2024 11:00 AM EDT Office Visit [address] [place] [phone] Latesha Lang APRN [address] [place] [address] [place], [place] [id number] documented as of this encounter Visit Diagnoses Not on filedocumented in this encounter Care Teams Car Lubricator Relationship Specialty Start Date End Date Latesha Lang APRN [address] [place] [facility] [place], [place] [id number] PCP - General Family Medicine 01/18/15 Audrey Farooq MD 1244 [facility], [place] [id number] Physician Ophthalmology 03/13/18 02/27/24 Katlin Rodriguez APRN [address] [address] Multi Sensor Operator 03/13/18 02/27/24 Jorge Abreu MD [address] [place] [address] [place] [address] Physician Urology 03/13/18 02/27/24 Donato Hale MD [address] [place] [address] [place] [address] Steam Drier Tender Internal Medicine 03/13/18 11/15/22 Zack Santiago MD [address] [place] [address] Internal Medicine 11/24/21 11/15/22 Zack Santiago MD [address] [place] [address] Internal Medicine 11/24/21 02/27/24 Donato Hale MD [address] [facility] 200 [place] [address] Steam Drier Tender Internal Medicine 11/16/22 documented as of this encounter
--- OUTSIDE RECORDS SUMMARY | 2024-07-23 18:31 | XMS_ITS | Encounter Summary ---
Author Organization [facility] Address [address] [place] [address] Care Team Providers Care Career Development Coordinator Name Role Phone Latesha Lang APRN Primary Care Provider Audrey Farooq MD Unavailable [phone] Katlin Rodriguez APRN Unavailable [phone] Jorge Abreu MD Unavailable Donato Hale MD Unavailable Zack Santiago MD Unavailable [phone] Zack Santiago MD Unavailable [phone] Donato Hale MD Unavailable [phone] Encounter Details Date Type Department Care Team (Late Contact Info) Description 08/30/2021 Scanned Document [address] [place] [phone] Provider, Generic Social History Tobacco Use Types [...] Upcoming Encounters Date Type Department Care Team ([facility] Contact Info) Description 09/01/2024 11:00 AM EDT Office Visit [facility] [place] [address] [place] [address] Latesha Lang APRN 1244 [facility], [place] [id number] documented as of this encounter Procedures Procedure Name Priority Date/Time Associated Diagnosis Comments XRAY EXTERNAL RESULT 08/30/2021 documented in this encounter Results * XRAY EXTERNAL RESULT (08/30/2021) Anatomical Region Laterality Modality Computed Radiogr aphy 08/30/2021 Narrative 08/30/2021 Ordered by an unspecified provider. Generic Provider IMG DIAGNOSTIC IMAGI NG ORDERABLES documented in this encounter Visit Diagnoses Not on filedocumented in this encounter Care Teams Career Development Coordinator Relationship Specialty Start Date End Date Latesha Lang APRN 1244 [facility], [place] [id number] PCP - General Family Medicine 01/18/15 Audrey Farooq MD [facility], [place] [id number] Physician Ophthalmology 03/13/18 02/27/24 Katlin Rodriguez APRN [address] [place] [address] Platemaker 03/13/18 02/27/24 Jorge Abreu MD [address] [place] [address] Physician Urology 03/13/18 02/27/24 Donato Hale MD [address] [place] [address] Senior Oracle Adf Developer Internal Medicine 03/13/18 11/15/22 Zack Santiago MD [address] [employer] [address] [place] [address] Internal Medicine 11/24/21 11/15/22 Zack Santiago MD [address] [employer] [address] [place] [address] Internal Medicine 11/24/21 02/27/24 Donato Hale MD [address] [employer] [address] [place] [address] Senior Oracle Adf Developer Internal Medicine 11/16/22 documented as of this encounter
--- OUTSIDE RECORDS SUMMARY | 2024-07-23 18:31 | XMS_ITS | Clinical Summary ---
Author Organization [facility] Address [address] [place] [address] Care Team Providers Care Beet Topper Name Role Phone Precious Latesha RUBIO Primary Care Provider [phone] Donato Hale MD Unavailable [phone] Allergies Active Allergy Reactions Criticality Noted Date Comments Gluten Diarrhea Low 06/07/2020 Milk Protein GI Intolerance/Nausea/Vomiting Low Tilactase Diarrhea Low 06/07/2020 Medications Medication Sig Dispensed Refills Start Date End Date Status lisinopril (PRINIVIL,ZeSTRIL) 40 MG tablet Take 1 tablet (40 mg total) by mouth daily. Active B Complex Vitamins (VITAMIN-B COMPLEX PO) 1 tablet daily. Active clopidogrel (PLAVIX) 75 MG tabletIndications:Vaginal vault prolapse,Cystocele, midline,Rectocele,Female stress incontinence Take 1 tablet (75 mg total) by mouth daily. 05/29/2018 Active rosuvastatin (CRESTOR) 20 MG tablet 06/07/2021 Active zinc gluconate 50 MG tablet Take 1 tablet (50 mg total) by mouth. Active SUPER B COMPLEX/C PO Take 1 tablet by mouth. Active PROBIOTIC PRODUCT PO Take 1 tablet by mouth. Active MULTIPLE VITAMIN PO Take 1 tablet by mouth. Active fluticasone (FloNASE) 50 mcg/spray nasal sprayIndications:Nasal congestion USE 1 SPRAY IN EACH NOSTRIL TWO TIMES A DAY 16 g 1 06/30/2022 Active amLODIPine (NORVASC) 10 MG tablet Take 1 tablet (10 mg total) by mouth daily. Active Choline Fenofibrate (Fenofibric Acid) 135 MG Capsule Delayed ReleaseIndications:Famili al hypercholesterolemia Take 1 capsule by mouth daily. 90 capsule 3 06/27/2023 Active Synthroid 25 MCG tabletIndications:Acquire d hypothyroidism TAKE ONE TABLET BY MOUTH EVERY MORNING 90 tablet 3 11/16/2023 Active hydroCHLOROthiazide (HYDRODIURIL) 25 MG tabletIndications:Hyperte nsion due to endocrine disorder TAKE ONE TABLET BY MOUTH EVERY DAY 90 tablet 3 12/17/2023 Active Lancets (Big Data Partnershiptouch ultrasoft) lancetsIndications:Type 2 diabetes mellitus without complication, unspecified whether superintendent marine oil terminal insulin use (HCC) USE TO TEST THREE TIMES A DAY 90 lancet(s) 1 03/31/2024 Active glucose blood (OneTouch Ultra Test) test stripIndications:Type 2 diabetes mellitus without complication, unspecified whether correction insulin use (HCC) USE TO TEST BLOOD SUGAR DAILY 100 strip 2 03/31/2024 Active metFORMIN (GLUCOPHAGE-XR) 500 MG 24 hr tabletIndications:Type 2 diabetes mellitus with stage 2 chronic kidney disease, without long-term current use of insulin (HCC) TAKE ONE TABLET BY MOUTH EVERY MORNING WITH BREAKFAST. SWALLOW WHOLE. DO NOT CRUSH, BREAK OR CHEW 90 tablet 1 05/13/2024 Active Active Problems Problem Noted Date Diagnosed Date Memory loss 03/02/2024 Overview (03/02/2024): Family concerned that patient is not remembering facts, dates, repeats questions, denies previous conversations. Patient disagrees. Cognitive test: clock incorrectly drawn, 2 word recall. Patient refuses evaluation for memory loss Stage 2 chronic kidney disease 10/04/2021 Acquired hypothyroidism 11/18/2019 Female stress incontinence 05/24/2018 Familial hypercholesterolemia 07/05/2017 Hypertension due to endocrine disorder 6 Glaucoma of both eyes 01/18/2016 Coronary atherosclerosis 11/10/2014 Type 2 diabetes mellitus wit h kidney complication, without long-term current use of insulin 11/10/2014 Dysmetabolic syndrome X 11/10/2014 Resolved Problems Problem Noted Date Diagnosed Date Resolved Date Vaginal vault prolapse 05/24/201807/03 Cystocele, midline 05/24/2018 9 Rectocele 05/24/2018 07/03/2018 Assessment & Plan (07/03/2018 12:40 PM EST): Treatment, follow up and surgery performed by Delroy Negro MD Enterocele 05/24/2018 07/03/2018 S/P CABG x 4 03/13/2018 03/02/2024 Overview (03/13/2018): Overview: christianson lad diag svg om svg rca Post PTCA 03/13/2018 03/02/2024 Overview (03/13/2018): Overview: rca Status post percutaneous tra nsluminal coronary angioplasty 01/18/2016 03/02/2024 Overview (01/18/2016): Overview: rca History of coronary artery bypass surgery 01/18/2016 03/13/2018 Overview (01/18/2016): Overview: christianson lad diag svg om svg rca Encounters Date Type Department Care Team Description 05/13/[address] [address] Latesha Lang APRN Type 2 diabetes mellitus with stage 2 chronic kidney disease, without long-term current use of insulin (HCC) from Last 3 Months Immunizations Name Administration Dates Next Due Covid-19 mRNA Primary Series Vaccine - Moderna 0.5 mL Full Dose 07/06/2020,06/07/2020 Covid-19 mRNA Vaccine - Mode rna 0.25 mL Booster 09/21/2021,04/29/2021 DTaP 5 01/10/2014 Influenza (AFLURIA/FLUZONE) Inactivated/Split Quadrivalent with Preservative IM 03/28/2021 Influenza High-Dose Trivalen t,(FLUZONE HIGH-DOSE), Perservative Free IM 0.5 mL 65 years and older 02/28/2024 Influenza Inactivated/Split Preservative Free IM 03/25/2019,03/30/2018,03/16/2015,03/17,03/12/2013 Influenza, Quadrivalent (FLU ARIX, AFLURIA, FLULAVAL, FLUZONE) Preservative Free IM 03/27/2023,03/23/2022,03/05/2021,03/17 Influenza, Unspecified 03/25/2019,03/30/2018 Pneumococcal Conjugate 13-Valent 01/18/2016 Pneumococcal Polysaccharide 23-Valent 07/24/2013 ,03/09/2010 Td 03/25/2022 Family History Medical History Relation Name Comments Melanoma Neg Hx Relation Name Status Comments Mother Social History Tobacco Use Types Packs/Day Years Used Date Smoking Tobacco: Never Smokeless Tobacco: Never Tobacco Cessation:Counseling Given: Yes Alcohol Use Standard Drinks/Week Comments No 0 (1 standard drink = 0.6 oz pur e alcohol) Sex and Gender Information Value Date Recorded Sex Assigned at Not on file Gender Identity Not on file Sexual Orientation Not on file Last Filed Vital Signs Vital Sign Reading Time Taken Comments Blood Pressure 155/72 02/28/2024 11:16 AM EDT Pulse 54 02/28/2024 11:16 AM EDT Temperature 36.3 ??C (97.4 ??F) 11/16/2022 10:46 AM E DT Respiratory Rate 14 02/28/2024 11:16 AM EDT Oxygen Saturation 99% 02/28/2024 11:16 AM EDT Inhaled Oxygen Concentration - - Weight 49.3 kg (108 lb 9.6 oz) 02/28/2024 11:16 AM EDT Height 152.4 cm (5') 02/28/2024 11:16 AM EDT Body Mass Index 21.21 02/28/2024 11:16 AM EDT Plan of Treatment Upcoming Encounters Date Type Department Care Team (Late st Contact Info) Description 09/01/2024 11:00 AM EDT Office Visit [address] [place] [address] Latesha Lang, TURRET PUNCH OPERATOR 12[address] [place] [address] Health Maintenance Due Date Last Done Comments Physical 1960 Zoster (Shingles) Vaccine (1 of 2) 1992 RSV Vaccine 60 years and older and Patients (1 - 1-dose 75+ series) 2017 DXA Bone Density (Females,Ages 65 and older) 02/16/2018 02/17/2016, 02/17/2016 Annual Wellness Visit 07/04/2019 07/03/2018, 017 Ophthalmology Exam 05/30/2020 05/30/2019 Lipid Panel 12/07/2021 12/07/2020, 11/25, 05/03/2019, Additional history exists Creatinine with GFR 11/22/2022 11/22/2021, 10/06/2021, 12/07/2020, Additional history exists COVID-19 Vaccine ( season) 2024 09/21/2021, 04/29/2021, 07/06/2020, Additional history exists Hemoglobin A1C 08/28/2024 02/28/2024, 10/27, 08/15/2022, Additional history exists Foot Exam 02/27/2025 02/28/2024, 04/28, 12/07/2020, Additional history exists Microalbumin/Creatinine Ratio Urine 02/27/2025 02/28/2024, 08/15/2022, 12/07/2020, Additional history exists DTaP/Tdap/Td Vaccines (3 - Tdap) 03/25/2032 03/25/2022, 01/10/2014 Pneumococcal Vaccines 50+ Completed 2015, 07/24/2013, 03/09/2010 Influenza Vaccine Completed 02/28/2024, , 03/23/2022, Additional history exists Hepatitis B Vaccines Aged Out No long er eligible based on patient's age to complete this topic Medical Devices Implanted Type Area Housing Development Specialist Device Identifier Shelf Expiration Date Model / Serial / Lot [id number] Lens Iol +22 Mc Posterior Chamber 1 Pc Fld Uv Blue Light - [id number] Implanted:Qty: 1 on 02/03/2020 by Rohini Galindo MD at [facility] [place] [employer] ACU0T0.22 0 / [id number] / [id number] Lens Iol +21.5 Mc Posterior Chamber 1 Pc Fld Uv Blue Light - [id number] Implanted:Qty: 1 on 03/09/2020 by Rohini Galindo MD at [facility] [place] [employer] ACU0T0.21 5 [id number] / Sling Pubourethral Blue Mesh Clr Desara 1000um Taper Pp - [id number] Implanted:Qty: 1 on 05/24/2018 by Delroy Negro MD at [facility] Urogyn N/A: Vagina [employer] 12/19/2020 [id number] / / [01] [id number]] [id number] ] 2017-11-26 5[17] 2020-11-26 5 Procedures Procedure Name Priority Date/Time Associated Diagnosis Comments MICROALBUMIN, CREATININE, URINE, RANDOM Routine 02/28/2024 11:45 AM EDT Type 2 diabetes mellitus with stage 2 chronic kidney disease, without long-term current use of insulin (HCC) POCT GLYCOSYLATED HEMOGLOBIN (HGB A1C) Routine 02/28/2024 11:29 AM EDT Type 2 diabetes mellitus with stage 2 chronic kidney disease, without long-term current use of insulin (HCC) BASIC METABOLIC PANEL Routine 11/22/2021 3:12 PM EDT Hypertension due to endocrine disorder LIPID PANEL REFLEX DIRECT LDL Routine 12/07/2020 8:59 AM EDT Type 2 diabetes mellitus without complication, unspecified whether correction insulin use (HCC) Hypertension due to endocrine disorder Familial hypercholesterolemia IMAGING DEXA 02/17/2016 from Last 3 Months or Most Recently Relevant to Health Maintenance Results * (ABNORMAL) Microalbumin, Creatinine, Urine, Random (02/28/2024 11:45 AM EDT) Creatinine, Urine, Random 17(L) 20 - 275 mg/dL [place] Microalbumin, Urine, Random 0.3 See Note: mg/dL [place] Comment: Reference Range: Reference Range Not established Microalbumin/Creat inine Ratio 18 <30 mg/g creat [place] Comment: The ADA defines abnormalities in albumin excretion as follows: Albuminuria Category ?Result (mg/g creatinine) Normal to Mildly increased ?? <30 Moderately increased ? 30-299 Severely increased ? > OR = 300 The ADA recommends that at least two of three specimens collected within a 3-6 month period be abnormal before considering a patient to be within a diagnostic category. Urine Voided urine specimen / Unknown 02/28/2024 11:45 AM EDT 02/29/2024 12:23 AM EDT Latesha Lang APRN URINE ORDERABLES Performing Organization Address City/State/[facility] Co de Phone Number [employer] [address] [place] [phone] * POCT A1C (02/28/2024 11:29 AM EDT) Hemoglobin A1C 5.5 4.0 - 6.0 % Lot Number [id number] Spring [employer] Pass Pass Blood 02/28/2024 11:2 9 AM EDT Latesha Lang APRN POINT OF CARE TEST O RDERABLES * (ABNORMAL) Basic Metabolic Panel (11/22/2021 3:12 PM EDT) Glucose 117 65 - 139 mg/dL [place] Comment: ? Non-fasting reference interval Blood Urea Nitrogen (BUN) 26(H) 7 - 25 mg/dL [place] Creatinine 0.96(H) 0.60 - 0.93 mg/dL [place] Comment: For patients >49 years of age, the reference limit for Creatinine is approximately 13% higher for people identified as -Chinese. eGFR Non- 57(L) > OR = 60 mL/min/1. 73m2 [place] eGFR 66 > OR = 60 mL/min/1. 73m2 [place] BUN/Creatinine Ratio 27(H) 6 - 22 (calc) [place] Sodium 141 135 - 146 mmol/L [place] Potassium 3.8 3.5 - 5.3 mmol/L [place] Chloride 102 98 - 110 mmol/L [place] CO2 30 20 - 32 mmol/L [place] Calcium 10.0 8.6 - 10.4 mg/dL [place] Blood specimen (specimen) Blood specimen / Unknown 11/22/2021 3:12 PM EDT 11/22/2021 3:14 PM EDT Narrative [facility] - 11/23/2021 5:32 AM EDT FASTING:NO FASTING: NO Latesha Lang APRN LAB BLOOD ORDERABLES [facility] [place] [address], [place] [address] * Lipid Panel Reflex Direct LDL (12/07/2020 8:59 AM EDT) Cholesterol, Total 155 <200 mg/dL [place] Cholesterol, HDL 59 > OR = 50 mg/dL [place] Triglycerides 102 <150 mg/dL [place] LDL Cholesterol 77 mg/dL (calc) [place] Comment: Reference range: <100 Desirable range <100 mg/dL for primary prevention; ?? <70 mg/dL for patients with CHD or diabetic patients with > or = 2 CHD risk factors. LDL-C is now calculated using the Jignesh-Dennis calculation, which is a validated novel method providing better accuracy than the Friedewald equation in the estimation of LDL-C. Jignesh SS et al. AFSHIN. 2013;310(19): 4370-3051 (http://education.BookBag/faq/NCE956) Cholesterol/HDL Ratio 2.6 <5.0 (calc) [place] Non HDL Chol. (LDL+VLDL) 96 <130 mg/dL (calc) [place] Comment: For patients with diabetes plus 1 major ASCVD risk factor, treating to a non-HDL-C goal of <100 mg/dL (LDL-C of <70 mg/dL) is considered a therapeutic option. Blood specimen (specimen) Blood specimen / Unknown 12/07/2020 8:59 AM EDT 12/07/2020 9:00 AM EDT Narrative [facility] - 12/14/2020 9:21 AM EDT FASTING:YES FASTING: YES Latesha Lang APRN LAB BLOOD ORDERABLES [facility] [address] [place] [address], [place] [address] * IMAGING DEXA (02/17/2016) Anatomical Region Laterality Modality Other Narrative 02/17/2016 Ordered by an unspecified provider. Generic Provider IMG LEGACY PROCEDURE S from Last 3 Months or Most Recently Relevant to Health Maintenance Advance Directives * Full Code (Latest Code Status on File) Date Activated Date Inactivated Comments 05/24/2018 4:38 PM 02/03/2020 11:48 AM * Full Code Date Activated Date Inactivated Comments 05/24/2018 8:56 AM 05/24/2018 4:38 PM Care Teams Beet Topper Relationship Specialty Start Date End Date Latesha Lang APRN [address] [place] [address] PCP - General Family Medicine 01/18/15 Donato Hale MD [address] [place] [address] Bed Machine Operator Internal Medicine 11/16/22
--- OUTSIDE RECORDS SUMMARY | 2024-07-23 18:31 | XMS_ITS | Clinical Summary ---
Author Organization [facility] Address [address] [place] [address] Care Team Providers Care Retoucher Photoengraving Name Role Phone Latesha Lang APRN Primary Care Provider [phone] Allergies Active Allergy Reactions Criticality Noted Date Comments Dairy Diarrhea 06/07/2020 Gluten Diarrhea 06/07/2020 Milk Protein 08/08/2019 Medications Medication Sig Dispensed Refills Start Date End Date Status Lancets (ONETOUCH ULTRASOFT) lancets Test 3 times a day 300 each 3 08/09/2017 Active metFORMIN (GLUCOPHAGE-XR) ER 24 hr tablet 500 mgIndications:Diabe kylee mellitus without complication (HCC) TAKE ONE TABLET BY MOUTH EVERY DAY 90 tablet 3 02/18/2018 Active ONE TOUCH ULTRA TEST test strip USE TO TEST THREE TIMES DAILY 300 each 3 10/24/2018 Active levothyroxine (SYNTHROID, LEVOXYL) tablet 25 mcg Take 1 tablet (25 mcg total) by mouth every morning on an empty stomach. 0 Active hydroCHLOROthiazide (MICROZIDE) 12.5 MG capsule Take 2 capsules (25 mg total) by mouth daily. 0 Active fenofibric acid (TRILIPIX) 135 MG capsule TAKE ONE CAPSULE BY MOUTH EVERY DAY 90 capsule 3 05/18/2022 Active lisinopril (PRINIVIL,ZESTRIL) tablet 40 mg TAKE ONE TABLET BY MOUTH EVERY DAY 90 tablet 3 03/12/2023 Active rosuvastatin (CRESTOR) tablet 20 mg TAKE ONE TABLET BY MOUTH EVERY DAY 90 tablet 3 10/30/2023 Active amLODIPine (NORVASC) tablet 5 mg Take 1 tablet (5 mg total) by mouth 2 (two) times a day. Changed per overlock hemmer 180 tablet 3 01/14/2024 Active Lactobacillus (PROBIOTIC ACIDOPHILUS PO) Take by mouth daily. 0 Active clopidogrel (PLAVIX) 75 MG tablet Take 1 tablet (75 mg total) by mouth daily. 90 tablet 3 02/25/2024 Active Active Problems Problem Noted Date Diagnosed Date Chest pain 03/04/2024 Familial hypercholesterolemia 07/05/2017 Post PTCA Overview: rca S/P CABG x 4 Overview: christianson lad diag svg om svg rca Hypertension Resolved Problems Problem Noted Date Diagnosed Date Resolved Date Coronary artery disease invo lving coronary bypass graft of chilkoot heart with angina pectoris 07/05/2017 09/18/2017 Immunizations Name Administration Dates Next Due Covid-19 (Moderna 12+) 100mcg/0.5mL dosage 07/06,06/07/2020 Td (Tenivac) 03/25/2022 Family History Medical History Relation Name Comments Coronary artery disease Sister Breast cancer Neg Hx Colon cancer Neg Hx Endometrial cancer Neg Hx Ovarian cancer Neg Hx Relation Name Status Comments Sister Social History Tobacco Use Types Packs/Day Years Used Date Smoking Tobacco: Never Passive Smoke Exposure: Past Smokeless Tobacco: Never Alcohol Use Standard Drinks/Week Comments No 0 (1 standard drink = 0.6 oz pur e alcohol) Sex and Gender Information Value Date Recorded Sex Assigned at Female 09/19/2018 7:37 PM EDT Gender Identity Not on file Sexual Orientation Not on file Job Start Date Occupation Industry Not on file Not on file Not on file Last Filed Vital Signs Vital Sign Reading Time Taken Comments Blood Pressure 163/60 03/04/2024 12:30 PM EDT Pulse 51 03/04/2024 12:30 PM EDT Temperature 36.5 ??C (97.7 ??F) 03/04/2024 12:30 PM E DT Respiratory Rate 18 03/04/2024 12:30 PM EDT Oxygen Saturation 100% 03/04/2024 12:30 PM EDT Inhaled Oxygen Concentration - - Weight 47 kg (103 lb 9.6 oz) 03/04/2024 12:30 PM EDT Height 152.4 cm (5') 03/04/2024 12:30 PM EDT Body Mass Index 20.23 03/04/2024 12:30 PM EDT Plan of Treatment Health Maintenance Due Date Last Done Comments Depression Screening 1952 Diabetes: Eye Exam (No Retinopathy) 1960 Diabetes: Foot Exam 1958 Preventative Health Evaluation 1960 Shingrix-Zoster Vaccine (1 of 2) 1992 Fall Risk Assessment 12/10/2007 RSV Adult > 60+ Yrs or (1 - 1-dose 75+ series) 2017 Osteoporosis Screening (DEXA Scan) 02/16/2018 02/17/2016 Hemoglobin A1C Due 09/17/2018 03/19/2018, 0 09/18/2017, 03/20/2017, Additional history exists Diabetes: Microalbumin Test 04/09/201903/28, 03/06/2017, 03/06/2017, Additional history exists COVID-19 Vaccine ( season) 2024 09/21/2021, 04/29/2021, 07/06/2020, Additional history exists DTap / Tdap / Td (3 - Tdap) 03/25/2032 03/25/2022, 0 01/10/2014 Pneumococcal Vaccine Completed 01/18/2016, 07/24/2013, 03/09/2010 Influenza Vaccine Completed 02/28/2024, , 03/23/2022, Additional history exists Hepatitis B Vaccines Aged Out No long er eligible based on patient's age to complete this topic RSV Ped < 20 months Aged Out No longe r eligible based on patient's age to complete this topic Advance Directives For more information, please contact: [phone] Documents on File Type Date Recorded Patient Type Soldering Machine Tender Expl anation Advance Directive and Living Will 09/19/2016 2:05 PM Latest Code Status on File Code Status Date Activated Date Inactivated Comments Full Code 03/04/2024 2:20 AM 03/04/2024 11:38 PM Care Teams Retoucher Photoengraving Relationship Specialty Start Date End Date Latesha Lang [facility]N [facility] [place] [address] PCP - General Family Medicine 01/13/15
--- OUTSIDE RECORDS SUMMARY | 2024-07-23 18:31 | XMS_ITS | Encounter Summary ---
Author Organization [facility] Address [address] [place] [address] Care Team Providers Care Payroll Supervisor Name Role Phone Latesha Lang APRN Primary Care Provider Audrey Farooq MD Unavailable [phone] Katlin Rodriguez APRN Unavailable [phone] Jorge Abreu MD Unavailable Donato Hale MD Unavailable Zack Santiago MD Unavailable [phone] Zack Santiago MD Unavailable [phone] Donato Hale MD Unavailable Encounter Details Date Type Department Care Team (Late Contact Info) Description 02/17/2016 Scanned Document [address] [address] Provider, Generic Social History Tobacco [...] Upcoming Encounters Date Type Department Care Team ([facility] Contact Info) Description 09/01/2024 11:00 AM EDT Office Visit [address] [place] [address] Latesha Lang APRN 1244 [place] [address] documented as of this encounter Procedures Procedure Name Priority Date/Time Associated Diagnosis Comments IMAGING DEXA 02/17/2016 IMAGING DEXA 02/17/2016 IMAGING BREAST/BX/MAMMO 02/17/2016 IMAGING BREAST/BX/MAMMO 02/17/2016 documented in this encounter Results * IMAGING DEXA (02/17/2016) Anatomical Region Laterality Modality Other Narrative 02/17/2016 Ordered by an unspecified provider. Generic Provider IMG LEGACY PROCEDURE S * IMAGING DEXA (02/17/2016) Anatomical Region Laterality Modality Other Narrative 02/17/2016 Ordered by an unspecified provider. Generic Provider IMG LEGACY PROCEDURE S * IMAGING BREAST/BX/MAMMO (02/17/2016) Anatomical Region Laterality Modality Other Narrative 02/23/2016 3:32 AM EDT Ordered by an unspecified provider. Generic Provider IMG LEGACY PROCEDURE S * IMAGING BREAST/BX/MAMMO (02/17/2016) Anatomical Region Laterality Modality Other Narrative 02/22/2016 2:43 AM EDT Ordered by an unspecified provider. Generic Provider IMG LEGACY PROCEDURE S documented in this encounter Visit Diagnoses Not on filedocumented in this encounter Care Teams Payroll Supervisor Relationship Specialty Start Date End Date Latesha Lang APRN 1244 [place] [address] PCP - General Family Medicine 01/18/15 Audrey Farooq MD [facility] [place] [address] Physician Ophthalmology 03/13/18 02/27/24 Katlin Rodriguez APRN 100 [facility] 4310 [place] [address] Reservations Manager 03/13/18 02/27/24 Jorge Abreu MD [address] [place] [address] Physician Urology 03/13/18 02/27/24 Donato Hale MD [address] [place] [address] Machine Icer Internal Medicine 03/13/18 11/15/22 Zack Santiago MD [address] [place] [address] Internal Medicine 11/24/21 11/15/22 Zack Santiago MD [address] [place] [address] Internal Medicine 11/24/21 02/27/24 Donato Hale MD [address] [place] [address] Machine Icer Internal Medicine 11/16/22 documented as of this encounter
--- OUTSIDE RECORDS SUMMARY | 2024-07-23 18:31 | XMS_ITS | Encounter Summary ---
Author Organization [facility] Address [address] [place] [address] Care Team Providers Care Performance Improvement Coordinator Name Role Phone Latesha Lang APRN Primary Care Provider [phone] Audrey Farooq MD Unavailable [phone] Katlin Rodriguez APRN Unavailable [phone] Jorge Abreu MD Unavailable [phone] Donato Hale MD Unavailable Zack Santiago MD Unavailable [phone] Zack Santiago MD Unavailable [phone] Donato Hale MD Unavailable [phone] Encounter Details Date Type Department Care Team (Late Contact Info) Description 03/01/2017 Scanned Document [address] [address] Provider, Generic Social History Tobacco [...] Upcoming Encounters Date Type Department Care Team ([facility] Contact Info) Description 09/01/2024 11:00 AM EDT Office Visit [address] [place] [address] Latesha Lang APRN [address] [facility] [place] [address] documented as of this encounter Procedures Procedure Name Priority Date/Time Associated Diagnosis Comments LAB RESULT 03/20/2017 documented in this encounter Results * LAB RESULT (03/20/2017) Narrative 03/20/2017 Ordered by an unspecified provider. Generic Provider HX AMB PROCEDURES documented in this encounter Visit Diagnoses Not on filedocumented in this encounter Care Teams Performance Improvement Coordinator Relationship Specialty Start Date End Date Latesha Lang APRN [address] [facility] [place] [address] PCP - General Family Medicine 01/18/15 Audrey Farooq MD [address] [place] [address], [place] [address] Physician Ophthalmology 03/13/18 02/27/24 Katlin Rodriguez APRN [address] [place] [address] Turbine Engineer 03/13/18 02/27/24 Jorge Abreu MD [address] [place] [address] Physician Urology 03/13/18 02/27/24 Donato Hale MD [address] [place] [address] Limnologist Internal Medicine 03/13/18 11/15/22 Zack Santiago MD [address] [place] [address] Internal Medicine 11/24/21 11/15/22 Zack Santiago MD [address] [place] [address] Internal Medicine 11/24/21 02/27/24 Donato Hale MD [facility] [address] [place] [address] Limnologist Internal Medicine 11/16/22 documented as of this encounter
--- OUTSIDE RECORDS SUMMARY | 2024-07-23 18:31 | XMS_ITS | Encounter Summary ---
Author Organization [facility] Address [address] [place] [address] Care Team Providers Care Vault Keeper Name Role Phone Latesha Lang APRN Primary Care Provider Audrey Farooq MD Unavailable [phone] Katlin Rodriguez APRN Unavailable [phone] Jorge Abreu MD Unavailable [phone] Donato Hale MD Unavailable [phone] Zack Santiago MD Unavailable [phone] Zack Santiago MD Unavailable [phone] Donato Hale MD Unavailable Encounter Details Date Type Department Care Team (Late Contact Info) Description 03/25/2022 Scanned Document [address] [address] Provider, Generic Social History Tobacco [...] Upcoming Encounters Date Type Department Care Team ([facility] Contact Info) Description 09/01/2024 11:00 AM EDT Office Visit [place] [address] [place] [address] Latesha Lang APRN [address] [place] [place], [place] [phone] documented as of this encounter Visit Diagnoses Not on filedocumented in this encounter Care Teams Vault Keeper Relationship Specialty Start Date End Date Latesha Lang APRN 1244 [facility] [place] [phone] PCP - General Family Medicine 01/18/15 Audrey Farooq MD [facility] [place] [address] Physician Ophthalmology 03/13/18 02/27/24 Katlin Rodriguez APRN [address] [address] Business Coordinator 03/13/18 02/27/24 Jorge Abreu MD [address] [place] [address] [place] [address] Physician Urology 03/13/18 02/27/24 Donato Hale MD [address] [place] [address] [place] [address] Gypsum Block Setter Internal Medicine 03/13/18 11/15/22 Zack Santiago MD [address] [place] [address] Internal Medicine 11/24/21 11/15/22 Zack Santiago MD [address] [place] [address] Internal Medicine 11/24/21 02/27/24 Donato Hale MD 100 [facility] 200 [place] [address] Gypsum Block Setter Internal Medicine 11/16/22 documented as of this encounter
--- OUTSIDE RECORDS SUMMARY | 2024-07-23 18:31 | XMS_ITS | Encounter Summary ---
Author Organization [facility] Address [address] [place] [address] Care Team Providers Care Oil Exploration Engineer Name Role Phone Latesha Lang APRN Primary Care Provider [phone] Audrey Farooq MD Unavailable [phone] Katlin Rodriguez APRN Unavailable [phone] Jorge Abrue MD Unavailable [phone] Donato Hale MD Unavailable Zack Santiago MD Unavailable [phone] Zack Santiago MD Unavailable [phone] Donato Hale MD Unavailable Encounter Details Date Type Department Care Team (Late Contact Info) Description 09/01/2016 Scanned Document [address] [address] Provider, Generic Social History Tobacco [...] Upcoming Encounters Date Type Department Care Team ([facility] Contact Info) Description 09/01/2024 11:00 AM EDT Office Visit [address] [place] [address] Latesha Lang APRN 1244 [facility] [place], [place] [id number] documented as of this encounter Procedures Procedure Name Priority Date/Time Associated Diagnosis Comments CT SCAN EXTERNAL RESULT 09/01/2016 IMAGING BREAST/BX/MAMMO 09/01/2016 documented in this encounter Results * CT SCAN EXTERNAL RESULT (09/01/2016) Anatomical Region Laterality Modality Computed Tomogra phy Narrative 09/04/2016 6:36 AM EDT Ordered by an unspecified provider. Generic Provider IMG CT ORDERABLES * IMAGING BREAST/BX/MAMMO (09/01/2016) Anatomical Region Laterality Modality Other Narrative 09/04/2016 6:35 AM EDT Ordered by an unspecified provider. Generic Provider IMG LEGACY PROCEDURE S documented in this encounter Visit Diagnoses Not on filedocumented in this encounter Care Teams Oil Exploration Engineer Relationship Specialty Start Date End Date Latesha Lang APRN 1244 [facility] [place], [place] [phone] PCP - General Family Medicine 01/18/15 Audrey Farooq MD [facility] [place] [address] Physician Ophthalmology 03/13/18 02/27/24 Katlin Rodriguez APRN [address] [place] [address] Forging Press Lever Tender 03/13/18 02/27/24 Jorge Abreu MD [address] [place] [address] [address] [place] [address] Physician Urology 03/13/18 02/27/24 Donato Hale MD [address] [place] [address] [address] [place] [address] Blending Tank Helper Internal Medicine 03/13/18 11/15/22 Zack Santiago MD [address] [employer] [address] [place] [address] Internal Medicine 11/24/21 11/15/22 Zack Santiago MD 100 [employer] [address] [place] [address] Internal Medicine 11/24/21 02/27/24 Donato Hale MD 100 [employer] [address] [place] [address] Blending Tank Helper Internal Medicine 11/16/22 documented as of this encounter
--- OUTSIDE RECORDS SUMMARY | 2024-07-23 18:31 | XMS_ITS | Encounter Summary ---
Author Organization [facility] Address [address] [place] [address] Care Team Providers Care Boat Outfitting Supervisor Name Role Phone Latesha Lang APRN Primary Care Provider [phone] Audrey Farooq MD Unavailable [phone] Katlin Rodriguez APRN Unavailable [phone] Jorge Abreu MD Unavailable Donato Hale MD Unavailable Zack Santiago MD Unavailable [phone] Zack Santiago MD Unavailable [phone] Donato Hale MD Unavailable Encounter Details Date Type Department Care Team (Late Contact Info) Description 09/19/2018 Scanned Document [address] [address] Provider, Generic Social History Tobacco [...] Upcoming Encounters Date Type Department Care Team ([facility] Contact Info) Description 09/01/2024 11:00 AM EDT Office Visit [address] [place] [place] [address] Latesha Lang APRN [address] [place] [address] [place], [place] [phone] documented as of this encounter Visit Diagnoses Not on filedocumented in this encounter Care Teams Boat Outfitting Supervisor Relationship Specialty Start Date End Date Latesha Lang APRN 1244 [place] [facility], [place] [phone] PCP - General Family Medicine 01/18/15 Audrey Farooq MD 1244 [facility], [place] [address] Physician Ophthalmology 03/13/18 02/27/24 Katlin Rodriguez APRN [address] [address] Senior Linux Systems Administrator 03/13/18 02/27/24 Jorge Abreu MD [address] [place] [address] [place] [address] Physician Urology 03/13/18 02/27/24 Donato Hale MD [address] [place] [address] [place] [address] Gyro Mechanic Internal Medicine 03/13/18 11/15/22 Zack Santiago MD [address] [place] [address] Internal Medicine 11/24/21 11/15/22 Zack Santiago MD [address] [place] [address] Internal Medicine 11/24/21 02/27/24 Donato Hale MD [address] [address] [facility] 200 [place] [address] Gyro Mechanic Internal Medicine 11/16/22 documented as of this encounter
--- OUTSIDE RECORDS SUMMARY | 2024-07-23 18:31 | XMS_ITS | Encounter Summary ---
Author Organization [facility] Address 100 [place] [address] Care Team Providers Care Software Packager Name Role Phone Latesha Lang APRN Primary Care Provider Audrey Farooq MD Unavailable Katlin Rodriguez APRN Unavailable Jorge Abreu MD Unavailable Donato Hale MD Unavailable [phone] Zack Santiago MD Unavailable [phone] Zack Santiago MD Unavailable [phone] Donato Hale MD Unavailable Encounter Details Date Type Department Care Team (Late st Contact Info) Description 08/11/2019 Scanned Document [facility] 1244 [place] [address] Latesha Lang APRN 1244 [place] [address] Social History Tobacco Use Types [...] Description 09/01/2024 11:00 AM EDT Office Visit [facility] [place] [address] [place] [address] Latesha Lang APRN 12[address] [place] [facility], [place] [address] documented as of this encounter Visit Diagnoses Not on filedocumented in this encounter Care Teams Software Packager Relationship Specialty Start Date End Date Latesha Lang APRN 1244 [place] [facility], [place] [phone] PCP - General Family Medicine 01/18/15 Audrey Farooq MD 1244 [facility], [place] [address] Physician Ophthalmology 03/13/18 02/27/24 Katlin Rodriguez APRN [address] [address] Gravity Prospecting Observer 03/13/18 02/27/24 Jorge Abreu MD [address] [place], [place] [address] [address] [place] [address] Physician Urology 03/13/18 02/27/24 Donato Hale MD [address] [place], [place] [address] [address] [place] [address] X Ray Physician Internal Medicine 03/13/18 11/15/22 Zack Santiago MD [address] [address] Internal Medicine 11/24/21 11/15/22 Zack Santiago MD 100 [facility] [address] [place] [address] Internal Medicine 11/24/21 02/27/24 Donato Hale MD 100 [facility] [address] [place] [address] X Ray Physician Internal Medicine 11/16/22 documented as of this encounter
--- OUTSIDE RECORDS SUMMARY | 2024-07-23 18:31 | XMS_ITS | Encounter Summary ---
Author Organization [facility] Address [address] [place] [address] Care Team Providers Care Finished Carpet Inspector Name Role Phone Latesha Lang APRN Primary Care Provider Audrey Farooq MD Unavailable [phone] Katlin Rodriguez APRN Unavailable [phone] Jorge Abreu MD Unavailable Donato Hale MD Unavailable Zack Santiago MD Unavailable [phone] Zack Santiago MD Unavailable [phone] Donato Hale MD Unavailable Encounter Details Date Type Department Care Team (Late Contact Info) Description 02/20/2018 Scanned Document [address] [address] Provider, Generic Social History Tobacco [...] Upcoming Encounters Date Type Department Care Team ([facility] Contact Info) Description 09/01/2024 11:00 AM EDT Office Visit [address] [place] [address] Latesha Lang APRN 1244 [place] [address] documented as of this encounter Procedures Procedure Name Priority Date/Time Associated Diagnosis Comments LAB RESULT 02/20/2018 documented in this encounter Results * LAB RESULT (02/20/2018) Narrative 02/20/2018 Ordered by an unspecified provider. Generic Provider HX AMB PROCEDURES documented in this encounter Visit Diagnoses Not on filedocumented in this encounter Care Teams Finished Carpet Inspector Relationship Specialty Start Date End Date Latesha Lang APRN 1244 [place] [address] PCP - General Family Medicine 01/18/15 Audrey Farooq MD [address] [place] [address], [place] [address] Physician Ophthalmology 03/13/18 02/27/24 Katlin Rodriguez APRN [address] [place] [address] Hand Marker 03/13/18 02/27/24 Jorge Abreu MD [address] [place] [address] Physician Urology 03/13/18 02/27/24 Donato Hale MD [address] [place] [address] Medical Technologist Blood Bank Internal Medicine 03/13/18 11/15/22 Zack Santiago MD [address] [place] [address] Internal Medicine 11/24/21 11/15/22 Zack Santiago MD [address] [place] [address] Internal Medicine 11/24/21 02/27/24 Donato Hale MD 100 [facility] [address] [place] [address] Medical Technologist Blood Bank Internal Medicine 11/16/22 documented as of this encounter
--- OUTSIDE RECORDS SUMMARY | 2024-07-23 18:31 | XMS_ITS | Encounter Summary ---
Author Organization [facility] Address [address] [place] [address] Care Team Providers Care Pantograph Engraver Name Role Phone Latesha Lang APRN Primary Care Provider Audrey Farooq MD Unavailable [phone] Katlin Rodriguez APRN Unavailable [phone] Jorge Abreu MD Unavailable Donato Hale MD Unavailable Zack Santiago MD Unavailable [phone] Zack Santiago MD Unavailable [phone] Donato Hale MD Unavailable [phone] Encounter Details Date Type Department Care Team (Late Contact Info) Description 02/22/2015 Scanned Document [facility] [place] [address] Provider, Generic Social History Tobacco Use Types [...] Description 09/01/2024 11:00 AM EDT Office Visit [address] [place] [address] Latesha Lang APRN 1244 [facility] [place], [place] [address] documented as of this encounter Visit Diagnoses Not on filedocumented in this encounter Care Teams Pantograph Engraver Relationship Specialty Start Date End Date Latesha Lang APRN 1244 [facility], [place], [place] [phone] PCP - General Family Medicine 01/18/15 Audrey Farooq MD [address] [place] [address], [place] [address] Physician Ophthalmology 03/13/18 02/27/24 Katlin Rodriguez APRN [address] [address] Tariff Compiling Clerk 03/13/18 02/27/24 Jorge Abreu MD [address] [place] [address] Physician Urology 03/13/18 02/27/24 Donato Hale MD [address] [place] [address] Account Assistant Internal Medicine 03/13/18 11/15/22 Zack Santiago MD [address] [place] [address] Internal Medicine 11/24/21 11/15/22 Zack Santiago MD [address] [place] [address] Internal Medicine 11/24/21 02/27/24 Donato Hale MD 100 [facility] [address] [address] Account Assistant Internal Medicine 11/16/22 documented as of this encounter
--- OUTSIDE RECORDS SUMMARY | 2024-07-23 18:31 | XMS_ITS | Encounter Summary ---
Author Organization [facility] Address [address] [place] [address] Phone Care Team Providers Care Rock Climbing Instructor Name Role Phone Latesha Lang APRN Primary Care Provider Unavaila ble Encounter Details Date Type Department Care Team (Late st Contact Info) Description 10/10/2021 Telephone [facility] [address] [place] [address] Zack Santiago MD Social History Tobacco Use Types Packs/Day Years Used Date Smoking Tobacco: Never Smokeless Tobacco: Never Alcohol Use Standard Drinks/Week Comments No 0 (1 standard drink = 0.6 oz pur e alcohol) Comments Unknown Sex and Gender Information Value Date Recorded Sex Assigned at Not on file Legal Sex Female 5:03 PM EST Gender Identity Not on file Sexual Orientation Not on file documented as of this encounter Miscellaneous Notes * Telephone Encounter - Fariba Vinson - 10/10/2021 2:19 PM EDT Pt called, she had her [facility] and would to know if we can pull the results rohan haven't sent them yet. Her weight was also put in wrong it is supposed to be 113 lbs not 131. Thank you documented in this encounter Plan of Treatment Not on file documented as of this encounter Visit Diagnoses Not on filedocumented in this encounter Care Teams Rock Climbing Instructor Relationship Specialty Start Date End Date Latesha Lang APRN [address] [place] [address] PCP - General Family Medicine 10/04/21 documented as of this encounter
--- OUTSIDE RECORDS SUMMARY | 2024-07-23 18:31 | XMS_ITS | Encounter Summary ---
Author Organization [facility] Address [address] [place] [address] Care Team Providers Care Tool Chaser Name Role Phone Latesha Lang APRN Primary Care Provider Audrey Farooq MD Unavailable [phone] Katlin Rodriguez APRN Unavailable [phone] Jorge Abreu MD Unavailable Donato Hale MD Unavailable Zack Santiago MD Unavailable [phone] Zack Santiago MD Unavailable [phone] Donato Hale MD Unavailable Encounter Details Date Type Department Care Team (Late Contact Info) Description 05/30/2019 Scanned Document [address] [address] Provider, Generic Social History Tobacco [...] Upcoming Encounters Date Type Department Care Team ([facility] Contact Info) Description 09/01/2024 11:00 AM EDT Office Visit [address] [place] [address] Latesha Lang APRN [address] [place] [address] [place], [place] [address] documented as of this encounter Visit Diagnoses Not on filedocumented in this encounter Care Teams Tool Chaser Relationship Specialty Start Date End Date Latesha Lang APRN 1244 [place] [facility], [place] [phone] PCP - General Family Medicine 01/18/15 Audrey Farooq MD 1244 [facility], [place] [address] Physician Ophthalmology 03/13/18 02/27/24 Katlin Rodriguez APRN [address] [address] Metal Reed Tuner 03/13/18 02/27/24 Jorge Abreu MD [address] [place] [address] [place] [address] Physician Urology 03/13/18 02/27/24 Donato Hale MD [address] [place] [address] [place] [address] Steeping Press Tender Internal Medicine 03/13/18 11/15/22 Zack Santiago MD [address] [place] [address] Internal Medicine 11/24/21 11/15/22 Zack Santiago MD [address] [place] [address] Internal Medicine 11/24/21 02/27/24 Donato Hale MD 100 [address] 200 [place] [address] Steeping Press Tender Internal Medicine 11/16/22 documented as of this encounter
--- OUTSIDE RECORDS SUMMARY | 2024-07-23 18:31 | XMS_ITS | Encounter Summary ---
Author Organization Formerly [facility] Address [address] [place] [address] Care Team Providers Care Radio Installer Name Role Phone Latesha Lang APRN Primary Care Provider [phone] Audrey Farooq MD Unavailable [phone] Katlin Rodriguez APRN Unavailable [phone] Jorge Abreu MD Unavailable Donato Hale MD Unavailable aZck Santiago MD Unavailable [phone] Zack Santiago MD Unavailable [phone] Donato Hale MD Unavailable Encounter Details Date Type Department Care Team (Late Contact Info) Description 02/18/2015 Scanned Document [address] [address] Provider, Generic Social History Tobacco [...] Description 09/01/2024 11:00 AM EDT Office Visit [address] [place] [phone] Latesha Lang APRN [address] [facility], [place] [id number] documented as of this encounter Visit Diagnoses Not on filedocumented in this encounter Care Teams Radio Installer Relationship Specialty Start Date End Date Latesha Lang APRN [address] [facility], [place] [id number] PCP - General Family Medicine 01/18/15 Audrey Farooq MD 1244 [facility], [place] [id number] Physician Ophthalmology 03/13/18 02/27/24 Katlin Rodriguez APRN [address] [address] Refrigerator Glazier 03/13/18 02/27/24 Jorge Abreu MD [address] [place] [address] Physician Urology 03/13/18 02/27/24 Donato Hale MD [address] [place] [address] Cloth Feeder Internal Medicine 03/13/18 11/15/22 Zack Santiago MD 100 [employer] [address] [place] [address] Internal Medicine 11/24/21 11/15/22 Zack Santiago MD [address] [employer] [address] [place] [address] Internal Medicine 11/24/21 02/27/24 Donato Hale MD 100 [facility] [address] [place] [address] Cloth Feeder Internal Medicine 11/16/22 documented as of this encounter
--- OUTSIDE RECORDS SUMMARY | 2024-07-23 18:31 | XMS_ITS | Encounter Summary ---
Author Organization [facility] Address 100 [place] [address] Care Team Providers Care Debit Agent Name Role Phone Latesha Lang APRN Primary Care Provider Audrey Farooq MD Unavailable Katlin Rodriguez APRN Unavailable Jorge Abreu MD Unavailable [phone] Donato Hale MD Unavailable [phone] Zack Santiago MD Unavailable [phone] Zack Santiago MD Unavailable [phone] Donato Hale MD Unavailable Encounter Details Date Type Department Care Team (Late st Contact Info) Description 07/04/2018 Scanned Document [facility] [address] [place] [address] Latesha Lang APRN [address] [place] [address] Social History Tobacco Use Types [...] Description 09/01/2024 11:00 AM EDT Office Visit [facility] [place] [address] [place] [address] Latesha Lang APRN [address] [place] [facility], [place] [id number] documented as of this encounter Visit Diagnoses Not on filedocumented in this encounter Care Teams Debit Agent Relationship Specialty Start Date End Date Latesha Lang APRN [address] [place] [facility], [place] [phone] PCP - General Family Medicine 01/18/15 Audrey Farooq MD 1244 [facility], [place] [phone] Physician Ophthalmology 03/13/18 02/27/24 Katlin Rodriguez APRN [address] [address] Acting Teacher 03/13/18 02/27/24 Jorge Abreu MD [address] [place], [place] [address] [address] [place] [address] Physician Urology 03/13/18 02/27/24 Donato Hale MD [address] [place], [place] [address] [address] [place] [address] Cracker Sprayer Internal Medicine 03/13/18 11/15/22 Zack Santiago MD [address] [address] Internal Medicine 11/24/21 11/15/22 Zack Santiago MD 100 [facility] [address] [place] [address] Internal Medicine 11/24/21 02/27/24 Donato Hale MD 100 [facility] [address] [place] [address] Cracker Sprayer Internal Medicine 11/16/22 documented as of this encounter
--- OUTSIDE RECORDS SUMMARY | 2024-07-23 18:31 | XMS_ITS | Encounter Summary ---
Author Organization [facility] Address 100 [place] [address] Care Team Providers Care Warehouse Puller Name Role Phone Latesha Lang APRN Primary Care Provider Audrey Farooq MD Unavailable [phone] Katlin Rodriguez APRN Unavailable [phone] Jorge Abreu MD Unavailable Donato Hale MD Unavailable Zack Santiago MD Unavailable [phone] Zack Santiago MD Unavailable [phone] Donato Hale MD Unavailable [phone] Encounter Details Date Type Department Care Team (Late Contact Info) Description 12/27/2014 Scanned Document [address] [address] Provider, Generic Social History Tobacco Use Types Packs/Day Years Used Date Smoking Tobacco: Never Assessed Sex and Gender Information Value Date Recorded Sex Assigned at Not on file Gender Identity Not on file Sexual Orientation Not on file documented as of this encounter Plan of Treatment Upcoming Encounters Date Type Department Care Team ([facility] Contact Info) Description 09/01/2024 11:00 AM EDT Office Visit [address] [address] Latesha Lang APRN 1244 [facility] [place] [address] documented as of this encounter Procedures Procedure Name Priority Date/Time Associated Diagnosis Comments LAB RESULT 12/27/2014 documented in this encounter Results * LAB RESULT (12/27/2014) Narrative 12/27/2014 Ordered by an unspecified provider. Generic Provider HX AMB PROCEDURES documented in this encounter Visit Diagnoses Not on filedocumented in this encounter Care Teams Warehouse Puller Relationship Specialty Start Date End Date Latesha Lang APRN 1244 [facility] [place] [address] PCP - General Family Medicine 01/18/15 Audrey Farooq MD 1244 [place] [address] Physician Ophthalmology 03/13/18 02/27/24 Katlin Rodriguez APRN [address] [address] Cabbage Salter 03/13/18 02/27/24 Jorge Abreu MD [address] [place] [address] Physician Urology 03/13/18 02/27/24 Donato Hale MD [address] [place] [address] Computer Mechanic Internal Medicine 03/13/18 11/15/22 Zack Santiago MD [address] [address] Internal Medicine 11/24/21 11/15/22 Zack Santiago MD 100 [facility] 200 [place] [address] Internal Medicine 11/24/21 02/27/24 Donato Hale MD 100 [facility] Sasha [facility] 200 [place] [address] Computer Mechanic Internal Medicine 11/16/22 documented as of this encounter
--- OUTSIDE RECORDS SUMMARY | 2024-07-23 18:31 | XMS_ITS | Encounter Summary ---
Author Organization [facility] Address [address] [place] [address] Care Team Providers Care Coppersmith Helper Name Role Phone Latesha Lang APRN Primary Care Provider Audrey Farooq MD Unavailable [phone] Katlin Rodriguez APRN Unavailable [phone] Jorge Abreu MD Unavailable [phone] Donato Hale MD Unavailable Zack Santiago MD Unavailable [phone] Zack Santiago MD Unavailable [phone] Donato Hale MD Unavailable Encounter Details Date Type Department Care Team (Late Contact Info) Description 10/15/2017 Scanned Document [address] [address] Provider, Generic Social History Tobacco [...] Description 09/01/2024 11:00 AM EDT Office Visit [address] [place] [address] Latesha Lang APRN [address] [place] [address] [place], [place] [phone] documented as of this encounter Visit Diagnoses Not on filedocumented in this encounter Care Teams Coppersmith Helper Relationship Specialty Start Date End Date Latesha Lang APRN 1244 [place] [facility] [place], [place] [phone] PCP - General Family Medicine 01/18/15 Audrey Farooq MD 1244 [facility] [place], [place] [phone] Physician Ophthalmology 03/13/18 02/27/24 Katlin Rodriguez APRN [address] [address] Lead Infrastructure Architect 03/13/18 02/27/24 Jorge Abreu MD [address] [place] [address] [place] [address] Physician Urology 03/13/18 02/27/24 Donato Hale MD [address] [place] [address] [place] [address] Oim Consultant Internal Medicine 03/13/18 11/15/22 Zack Sanitago MD [address] [place] [address] Internal Medicine 11/24/21 11/15/22 Zack Santiago MD [address] [place] [address] Internal Medicine 11/24/21 02/27/24 Donato Hale MD 100 [facility] 200 [place] [address] Oim Consultant Internal Medicine 11/16/22 documented as of this encounter
--- OUTSIDE RECORDS SUMMARY | 2024-07-23 18:31 | XMS_ITS | Encounter Summary ---
Author Organization [facility]ly [facility] Address [address] [place] [address] Care Team Providers Care Hospice Liaison Name Role Phone Latesha Lang APRN Primary Care Provider [phone] Audrey Farooq MD Unavailable [phone] Katlin Rodriguez APRN Unavailable [phone] Jorge Abreu MD Unavailable Donato Hale MD Unavailable [phone] Zack Santiago MD Unavailable [phone] Zack Santiago MD Unavailable [phone] Donato Hale MD Unavailable Encounter Details Date Type Department Care Team (Late Contact Info) Description 07/14/2016 Scanned Document [address] [address] Provider, Generic Social History Tobacco [...] Upcoming Encounters Date Type Department Care Team ([facility] Contact Info) Description 09/01/2024 11:00 AM EDT Office Visit [address] [place] [address] Latesha Lang APRN [address] [place] [address] [place], [place] [phone] documented as of this encounter Visit Diagnoses Not on filedocumented in this encounter Care Teams Hospice Liaison Relationship Specialty Start Date End Date Latesha Lang APRN 1244 [place] [facility], [place] [id number] PCP - General Family Medicine 01/18/15 Audrey Farooq MD 1244 [facility], [place] [address] Physician Ophthalmology 03/13/18 02/27/24 Katlin Rodriguez APRN [address] [address] Tongue And Quarter Stitcher 03/13/18 02/27/24 Jorge Abreu MD [address] [place] [address] [place] [address] Physician Urology 03/13/18 02/27/24 Donato Hale MD [address] [place] [address] [place] [address] Photographic Equipment Assembler Internal Medicine 03/13/18 11/15/22 Zack Santiago MD [address] [place] [address] Internal Medicine 11/24/21 11/15/22 Zack Santiago MD [address] [place] [address] Internal Medicine 11/24/21 02/27/24 Donato Hale MD 100 [address] B[facility] 200 [place] [address] Photographic Equipment Assembler Internal Medicine 11/16/22 documented as of this encounter
--- OUTSIDE RECORDS SUMMARY | 2024-07-23 18:31 | XMS_ITS | Encounter Summary ---
Author Organization [facility] Address [address] [place] [address] Care Team Providers Care Extended Insurance Clerk Name Role Phone Latesha Lang APRN Primary Care Provider Audrey Farooq MD Unavailable [phone] Katlin Rodriguez APRN Unavailable [phone] Jorge Abreu MD Unavailable Donato Hale MD Unavailable Zack Santiago MD Unavailable [phone] Zack Santiago MD Unavailable [phone] Donato Hale MD Unavailable [phone] Encounter Details Date Type Department Care Team (Late Contact Info) Description 11/14/2019 Scanned Document [address] [address] Provider, Generic Social History Tobacco [...] Upcoming Encounters Date Type Department Care Team ([facility] Contact Info) Description 09/01/2024 11:00 AM EDT Office Visit [address] [place] [address] Latesha Lang APRN [address] [place] [address] [place], [place] [phone] documented as of this encounter Visit Diagnoses Not on filedocumented in this encounter Care Teams Extended Insurance Clerk Relationship Specialty Start Date End Date Latesha Lang APRN [address] [place] [facility], [place] [phone] PCP - General Family Medicine 01/18/15 Audrey Farooq MD 1244 [facility], [place] [phone] Physician Ophthalmology 03/13/18 02/27/24 Katlin Rodriguez APRN [address] [address] Breaker Operator 03/13/18 02/27/24 Jorge Abreu MD [address] [place] [address] [place] [address] Physician Urology 03/13/18 02/27/24 Donato Hale MD [address] [place] [address] [place] [address] Certified Prosthetist Vice President Internal Medicine 03/13/18 11/15/22 Zack Santiago MD [address] [place] [address] Internal Medicine 11/24/21 11/15/22 Zack Santiago MD [address] [place] [address] Internal Medicine 11/24/21 02/27/24 Donato Hale MD 100 [address] Baez [facility] 200 [place] [address] Certified Prosthetist Vice President Internal Medicine 11/16/22 documented as of this encounter
--- OUTSIDE RECORDS SUMMARY | 2024-07-23 18:31 | XMS_ITS | Encounter Summary ---
Author Organization [facility] Address [address] [place] [address] Care Team Providers Care Churn Tender Name Role Phone Latesha Lang APRN Primary Care Provider Audrey Farooq MD Unavailable [phone] Katlin Rodriguez APRN Unavailable [phone] Jorge Abreu MD Unavailable [phone] Donato Hale MD Unavailable Zack Santiago MD Unavailable [phone] Zakc Santiago MD Unavailable [phone] Donato Hale MD Unavailable Encounter Details Date Type Department Care Team (Late Contact Info) Description 10/08/2016 Scanned Document [address] [address] Provider, Generic Social History Tobacco [...] Upcoming Encounters Date Type Department Care Team ([facility] Contact Info) Description 09/01/2024 11:00 AM EDT Office Visit [address] [place] [address] Latesha Lang APRN [address] [place] [address] [place], [place] [phone] documented as of this encounter Visit Diagnoses Not on filedocumented in this encounter Care Teams Churn Tender Relationship Specialty Start Date End Date Latesha Lang APRN 1244 [place] [facility] [place] [phone] PCP - General Family Medicine 01/18/15 Audrey Farooq MD 1244 [facility], [place] [phone] Physician Ophthalmology 03/13/18 02/27/24 Katlin Rodriguez APRN [address] [address] Bottle Cleaner 03/13/18 02/27/24 Jorge Abreu MD [address] [place] [address] [place] [address] Physician Urology 03/13/18 02/27/24 Donato Hale MD [address] [place] [address] [place] [address] Chemistry Specialist Internal Medicine 03/13/18 11/15/22 Zack Santiago MD [address] [place] [address] Internal Medicine 11/24/21 11/15/22 Zack Santiago MD [address] [place] [address] Internal Medicine 11/24/21 02/27/24 Donato Hale MD 100 And[facility] Baez [facility] 200 [place] [address] Chemistry Specialist Internal Medicine 11/16/22 documented as of this encounter
--- OUTSIDE RECORDS SUMMARY | 2024-07-23 18:31 | XMS_ITS | Encounter Summary ---
Author Organization [facility] Address 100 [place] [address] Care Team Providers Care Health Care Aide Name Role Phone Latesha Lang APRN Primary Care Provider Audrey Farooq MD Unavailable Katlin Rodriguez APRN Unavailable Jorge Abreu MD Unavailable Donato Hale MD Unavailable Zack Santiago MD Unavailable [phone] Zack Santiago MD Unavailable [phone] Donato Hale MD Unavailable Encounter Details Date Type Department Care Team (Late Contact Info) Description 01/13/2015 Scanned Document [address] [address] Provider, Generic Social History Tobacco Use Types Packs/Day Years Used Date Smoking Tobacco: Never Assessed Sex and Gender Information Value Date Recorded Sex Assigned at Not on file Gender Identity Not on file Sexual Orientation Not on file documented as of this encounter Plan of Treatment Upcoming Encounters Date Type Department Care Team ([facility] Contact Info) Description 09/01/2024 11:00 AM EDT Office Visit [address] [address] Latesha Lang APRN [address] [place] [address] documented as of this encounter Visit Diagnoses Not on filedocumented in this encounter Care Teams Health Care Aide Relationship Specialty Start Date End Date Latesha Lang APRN [address] [place] [address] PCP - General Family Medicine 01/18/15 Audrey Farooq MD [address] [place] [address] Physician Ophthalmology 03/13/18 02/27/24 Katlin Rodriguez APRN [address] [place] [address] Nurse Recruiter 03/13/18 02/27/24 Jorge Abreu MD [address] [place], [place] [address] [address] [place] [address] Physician Urology 03/13/18 02/27/24 Donato Hale MD [address] [place], [place] [address] [address] [place], [place] [address] Jowl Trimmer Internal Medicine 03/13/18 11/15/22 Zack Santiago MD 100 [employer] [address] 200 [place] [address] Internal Medicine 11/24/21 11/15/22 Zack Santiago MD [address] 200 [place] [address] Internal Medicine 11/24/21 02/27/24 Donato Hale MD [address] [address] Jowl Trimmer Internal Medicine 11/16/22 documented as of this encounter
--- OUTSIDE RECORDS SUMMARY | 2024-07-23 18:31 | XMS_ITS | Encounter Summary ---
Author Organization [facility] Address [address] [place] [address] Care Team Providers Care Corsets Salesperson Name Role Phone Latesha Lang APRN Primary Care Provider Audrey Farooq MD Unavailable Katlin Rodriguez APRN Unavailable [phone] Jorge Abreu MD Unavailable [phone] Donato Hale MD Unavailable Zack Santiago MD Unavailable [phone] Zack Santiago MD Unavailable [phone] Donato Hale MD Unavailable [phone] Encounter Details Date Type Department Care Team (Late st Contact Info) Description 07/04/2018 Scanned Document [facility] 12[address] [place] [address] Latesha Lang APRN 1244 [place] [address] Social History Tobacco Use Types [...] Description 09/01/2024 11:00 AM EDT Office Visit [facility] [place] [address] [place] [address] Latesha Lang APRN 1244 [place] [facility], [place] [address] documented as of this encounter Visit Diagnoses Not on filedocumented in this encounter Care Teams Corsets Salesperson Relationship Specialty Start Date End Date Latesha Lang APRN 1244 [place] [facility], [place] [phone] PCP - General Family Medicine 01/18/15 Audrey Farooq MD 1244 [facility], [place] [address] Physician Ophthalmology 03/13/18 02/27/24 Katlin Rodriguez APRN [address] [address] Cement Patcher 03/13/18 02/27/24 Jorge Abreu MD [address] [place], [place] [address] [address] [place] [address] Physician Urology 03/13/18 02/27/24 Donato Hale MD [address] [place], [place] [address] [address] [place] [address] Fire And Safety Helper Internal Medicine 03/13/18 11/15/22 Zack Santiago MD [address] [address] Internal Medicine 11/24/21 11/15/22 Zack Santiago MD 100 [facility] 200 [place] [address] Internal Medicine 11/24/21 02/27/24 Donato Hale MD 100 [facility] Sasha [address] [place] [address] Fire And Safety Helper Internal Medicine 11/16/22 documented as of this encounter
--- OUTSIDE RECORDS SUMMARY | 2024-07-23 18:31 | XMS_ITS | Clinical Summary ---
Author Organization Patient [facility] Address [address] [place] [address] Care Team Providers Care Warehousing Technician Name Role Phone Latesha Lang JAVIER Primary Care Provider [phone] Allergies Active Allergy Reactions Criticality Noted Date Comments Casein Nausea And Vomiting Low 08/08/2019 Gluten Diarrhea Low 06/07/2020 Lactase Diarrhea 06/07/2020 Medications lisinopril (PRINIVIL,ZESTR IL) 40 mg tablet Take 1 tablet (40 mg total) by mouth 1 (one) time each day. 90 each 3 4 04/23/20 25 Active amLODIPine (NORVASC) 5 mg tablet Take 1 tablet (5 mg total) by mouth 2 (two) times a day. Changed per order entry administrator 4 Active clopidogreL (PLAVIX) 75 mg tablet Take 1 tablet (75 mg total) by mouth 1 (one) time each day. 9 Active Lactobacillus acidophilus (PROBIOTIC ACIDOPHILUS ORAL) Take by mouth 1 (one) time each day. Active OneTouch UltraSoft 2 Lancet 30 gauge misc 3 (three) times a day. 4 Active levothyroxine (SYNTHROID, LEVOTHROID) 25 mcg tablet Take 1 tablet (25 mcg total) by mouth 1 (one) time each day in the morning. on an empty stomach. 4 Active metFORMIN XR (GLUCOPHAGE-XR) 500 mg 24 hr tablet Take 1 tablet (500 mg total) by mouth daily. 4 Active rosuvastatin (CRESTOR) 20 mg tablet Take 1 tablet (20 mg total) by mouth 1 (one) time each day. 2 Active hydroCHLOROthia zide (MICROZIDE) 12.5 mg capsule Take 2 capsules (25 mg total) by mouth 1 (one) time each day. Active fenofibric acid (TRILIPIX) 135 mg capsule Take 1 capsule (135 mg total) by mouth daily. 9 Active DatalinkTouch Ultra Test test strip USE TO TEST THREE TIMES DAILY 4 Active Active Problems Problem Noted Date Diagnosed Date Hypertension 07/21/2024 Chest pain 03/04/2024 Familial hypercholesterolemia 07/05/2017 Immunizations Name Administration Dates Next Due Moderna SARS-CoV-2 COVID-19, mRNA, LNP-S, preservative free 09/21/2021,04/29/2021 Td Tetanus diptheria, preser vative free (Tenivac) 7yo and older 03/25/2022 Surgical History Surgery Date Site/Laterality Comments CHOLECYSTECTOMY PROCEDURE:CHOLECYSTECTOMY HYSTERECTOMY PROCEDURE:HYSTERECTOMY BREAST BIOPSY 05/04/02 Right PROCEDURE:BREAST BIOPSY;COMMENT:BENIGN OTHER SURGICAL HISTORY PROCEDURE:bladder mesh BLADDER SURGERY PROCEDURE:BLADDER SURGERY ABDOMINAL SURGERY PROCEDURE:ABDOMINAL SURGERY Medical History Medical History Date Comments Fibrocystic breast DX:Fibrocysti c breast Post PTCA 08 HH DX:Post PTCA;COM MENT:rca 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 DX:S/P CABG x 4; COMMENT:christianson lad diag svg om svg rca Hypertension DX:Hypertension Hyperlipidemia LDL goal <70 DX:H yperlipidemia LDL goal <70 Diabetes (CMS/HCC) DX:Diabetes ( HCC) Shingles DX:Shingles History of nuclear stress test 12/07 D X:History of nuclear stress test;COMMENT:ef 70 mixed ant med rxz History of nuclear stress test 02/09 D X:History of nuclear stress test;COMMENT:nl perfusion nl lvef Family History Medical History Relation Name Comments [...] at Not on file Legal Sex Female 3:48 PM EST Gender Identity Not on file Sexual Orientation Not on file Obstetrics History Last Filed Vital Signs Vital Sign Reading Time Taken Comments Blood Pressure 158/82 01/16/2024 1:22 PM EDT Pulse 53 01/16/2024 1:22 PM EDT Temperature - - Respiratory Rate - - Oxygen Saturation - - Inhaled Oxygen Concentration - - Weight 47 kg (103 lb 9.6 oz) 03/04/2024 12:30 PM EDT Height 152.4 cm (5') 03/04/2024 12:30 PM EDT Body Mass Index 20.23 03/04/2024 12:30 PM EDT Plan of Treatment Upcoming Encounters Date Type Department Care Team (Late st Contact Info) Description 01/16/2025 12:30 PM EDT Office Visit [facility] [address] [place] [address] [address] [place] [phone] Donato Hale MD 19 [facility] [address] [place] [address] Health Maintenance Due Date Last Done Comments Diabetes: Annual Foot Exam 1952 Diabetes: Annual Retina Eye Exam 1952 Zoster Vaccines (1 of 2) 1992 RSV Immunization Patients 60+ Years Old (1 - 1-dose 75+ series) 2017 Depression Screening 04/16/2020 Falls Risk Assessment 04/16/2020 Osteoporosis Screening (Bone Density Screening) 04/16/2020 Social Influencers of Health Screening 04/16/2020 COVID-19 Vaccine ( season) 2024 09/21/2021, 04/29/2021, 07/06/2020, Additional history exists Diabetes: Blood Sugar Control Test (HGBA1C) 08/28/2024 02/28/2024, 03/19/2018 Diabetes: Annual Urine Albumin-Creatinine Ratio (uACR) 02/28/2025 02/29/2024, 02/28/2024, 04/09/2018 Diabetes: Annual GFR (Glomerular Filtration Rate) 05/06/2025 05/06/2024, 03/04/2024, 03/04/2024, Additional history exists Hypertension/CHF/CAD Annual BMP Blood Test 05/06/2025 05/06/2024, 03/04/2024, 03/04/2024, Additional history exists Cholesterol Screening (Lipid Panel) 10/08/2028 10/09/2023, 10/09/2023, 10/09/2023, Additional history exists DTaP,Tdap,and Td Vaccines (3 - Td or Tdap) 03/25/2032 03/25/2022, 01/10/2014 Pneumococcal Vaccine: 50+ Years Completed 01/18/2016, 07/24/2013, 03/09/2010 Influenza Vaccine Completed 02/28/2024, , 03/23/2022, Additional history exists HIB Vaccines Aged Out No longer eligi ble based on patient's age to complete this topic HPV Vaccines Aged Out No longer eligi ble based on patient's age to complete this topic Hepatitis A Vaccines Aged Out No long er eligible based on patient's age to complete this topic Hepatitis B Vaccines Aged Out No long er eligible based on patient's age to complete this topic IPV Vaccines Aged Out No longer eligi ble based on patient's age to complete this topic MMR Vaccines Aged Out No longer eligi ble based on patient's age to complete this topic Meningococcal ACWY Vaccine Aged Out N o longer eligible based on patient's age to complete this topic Meningococcal B Vacine Aged Out No lo nger eligible based on patient's age to complete this topic RSV Immunization Patients Under 20 months Aged Out No longer eligible based on patient's age to complete this topic Varicella Vaccines Aged Out No longer eligible based on patient's age to complete this topic Procedures Procedure Name Priority Date/Time Associated Diagnosis Comments BASIC METABOLIC PANEL Routine 05/06/2024 9:51 AM EST Essential hypertension, malignant HM URINE ALBUMIN CREATININE RATIO Routine 02/29/2024 LIPID PANEL Routine 10/09/2023 HEMOGLOBIN A1C Routine 03/19/2018 from Last 3 Months or Most Recently Relevant to Health Maintenance Results * (ABNORMAL) Basic metabolic panel (05/06/2024 9:51 AM EST) Sodium 142 135 - 145 mmol/L LAB CHEMISTRY METHOD 05/06/2024 10:25 AM [facility] Potassium 3.7 3.5 - 5.1 mmol/L LAB CHEMISTRY METHOD 05/06/2024 10:25 AM [facility] Chloride 104 98 - 107 mmol/L LAB CHEMISTRY METHOD 05/06/2024 10:25 AM [facility] CO2 32 24 - 32 mmol/L LAB CHEMISTRY METHOD 05/06/2024 10:25 AM [facility] Anion Gap 6 5 - 14 LAB CHEMISTRY METHOD 05/06/2024 10:25 AM [facility] Glucose 91 70 - 199 mg/dL LAB CHEMISTRY METHOD 05/06/2024 10:25 AM [facility] BUN 25(H) 7 - 17 mg/dL LAB CHEMISTRY METHOD 05/06/2024 10:25 AM [facility] Creatinine 0.95 0.50 - 1.00 mg/dL LAB CHEMISTRY METHOD 05/06/2024 10:25 AM [facility] eGFR 60 >=60 mL/min/1. 73m2 LAB CHEMISTRY METHOD 05/06/2024 10:25 AM [facility] Comment:Calculation based on the??Chronic Kidney Disease Epidemiology Collaboration (CKD-EPI) equation refit??without adjustment for race. BUN/Creatinine Ratio 26.3(H) 12.0 - 20.0 LAB CHEMISTRY METHOD 05/06/2024 10:25 AM [facility] Calcium 9.7 8.4 - 10.2 mg/dL LAB CHEMISTRY METHOD 05/06/2024 10:25 AM [facility] Blood Venous blood specimen / Unknown Venipuncture / Unknown 05/06/2024 9:51 AM EST 05/06/2024 9:55 AM EST Zack Santiago MD LAB BLOOD ORDERABL ES Final Result [facility] [address] [place] [address], [place] [phone] * HM Urine Albumin Creatinine Ratio (02/29/2024) Urine Albumin Creatinine Ratio abstracted Historical Provider HEALTH MAINTENANCE Final Result * Lipid panel (10/09/2023) Triglycerides 112 <=150 mg/dL Cholesterol 145 0 - 200 mg/dL HDL 53 33 - 92 mg/dL LDL Cholesterol 70 50 - 130 mg/dL Blood Venous blood specimen / Unknown Historical Provider LAB BLOOD ORDERABLES Letty l Result * (ABNORMAL) Hemoglobin A1c (03/19/2018) Hemoglobin A1C 6.2(A) 4.0 - 6.0 % Blood Venous blood specimen / Unknown Historical Provider LAB BLOOD ORDERABLES Letty l Result from Last 3 Months or Most Recently Relevant to Health Maintenance Care Teams Warehousing Technician Relationship Specialty Start Date End Date Latesha Lang FNP [address] [place] [address] PCP - General Family Medicine 01/13/15
--- OUTSIDE RECORDS SUMMARY | 2024-07-23 18:31 | XMS_ITS | Clinical Summary ---
Author Organization [facility] Address [address] [place] [address] Phone Care Team Providers Care Esthetician/Spa Coordinator Name Role Phone Latesha Lang APRN Primary Care Provider Unavaila ble Allergies Active Allergy Reactions Criticality Noted Date Comments Gluten Meal Diarrhea Low 06/07/2020 Milk Protein Nausea And Vomiting Low 08/08/2019 Tilactase Diarrhea Low 06/07/2020 Medications amLODIPine (NORVASC) 5 MG tablet Take 1 tablet by mouth 1 (one) time each day Active choline fenofibrate (TRILIPIX) 135 MG capsule Take 1 capsule by mouth 1 (one) time each day 9 Active clopidogrel (PLAVIX) 75 MG tablet Take 1 tablet by mouth every night 9 Active latanoprost (XALATAN) 0.005 % ophthalmic solution Active levothyroxine (SYNTHROID, LEVOTHROID) 25 MCG tablet Take 1 tablet by mouth 1 (one) time each day Active lisinopril 40 MG tablet Take 1 tablet by mouth 1 (one) time each day 9 Active metFORMIN (GLUCOPHAGE) 500 MG tablet Take 1 tablet by mouth 1 (one) time each day with breakfast Active CRANBERRY PO Take 4,200 mg by mouth 1 (one) time each day Active Multiple Vitamin (MULTIVITAMIN ADULT PO) Take 1 tablet by mouth 1 (one) time each day Active SUPER B COMPLEX/C PO Take 1 tablet by mouth 1 (one) time each day Active Probiotic Product (VISBIOME PO) Take 1 tablet by mouth 1 (one) time each day Active b complex vitamins capsule Take 1 capsule by mouth 1 (one) time each day Active Biotin 5 MG capsule Take 1 capsule by mouth 1 (one) time each day Active zinc gluconate 50 MG tablet Take 50 mg by mouth 1 (one) time each day Active rosuvastatin (CRESTOR) 20 MG tablet Take 20 mg by mouth 1 (one) time each day Active hydroCHLOROthiaz jigar 25 MG tablet Take 1 tablet (25 mg total) by mouth 1 (one) time each day 90 tablet 3 2 Active Active Problems Problem Noted Date Diagnosed Date Chronic kidney disease stage 2 10/04/2021 Essential hypertension 10/04/2021 Type 2 diabetes mellitus 11/10/2014 Resolved Problems Problem Noted Date Diagnosed Date Resolved Date Acquired hypothyroidism 11/18/201909/25 Female stress incontinence 05/24/2018 0 10/04/2021 History of coronary artery bypass grafting 03/13/2018 10/04/2021 Overview (10/04/2021): christianson lad diag svg om svg rca Overview: christianson lad diag svg om svg rca Familial hypercholesterolemia 07/05/2017 10/04/2021 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 2 Patient post percutaneous tr ansluminal coronary angioplasty 01/18/2016 10/04/2021 Overview (10/04/2021): rca Overview: rca Overview: rca Coronary atherosclerosis 11/10/201402/2022 Dysmetabolic syndrome 11/10/20142021 Immunizations Name Administration Dates Next Due DTaP 5 01/10/2014 Influenza Split 03/28/2021, 9,03/30/2018,03/16/2015 ,03/17/2014,03/12/2013 Influenza, Unspecified 03/25/2019,03/30/2018 Moderna SARS-COV-2 07/06/2020,06/07/2020 Pneumococcal Conjugate 13-Valent 01/18/2016 Pneumococcal Polysaccharide 07/24/2013, 0 Family History Medical History Relation Comments Heart disease Mother Hypertension Mother Stroke Mother CVA Relation Status Comments Mother Social History Tobacco Use Types Packs/Day Years Used Date Smoking Tobacco: Never Smokeless Tobacco: Never Tobacco Cessation:Counseling Given: Not Answered Alcohol Use Standard Drinks/Week Comments No 0 (1 standard drink = 0.6 oz pur e alcohol) Comments Unknown Sex and Gender Information Value Date Recorded Sex Assigned at Not on file Legal Sex Female 5:03 PM EST Gender Identity Not on file Sexual Orientation Not on file Last Filed Vital Signs Vital Sign Reading Time Taken Comments Blood Pressure 140/70 11/14/2022 2:31 PM EDT Pulse 54 11/14/2022 2:31 PM EDT Temperature - - Respiratory Rate - - Oxygen Saturation 98% 11/14/2022 2:31 PM EDT Inhaled Oxygen Concentration - - Weight 49.9 kg (110 lb) 11/08/2021 1:32 PM EDT Height 152.4 cm (5') 06/22/2020 12:00 PM EST Body Mass Index 21.48 06/22/2020 12:00 PM EST Plan of Treatment Health Maintenance Due Date Last Done Comments Diabetes: Ophthalmology Exam 10/04/2021 Diabetes: Pedal Pulse Checked 10/04/2021 Diabetes: Sensory Foot Exam 10/04/2021 Diabetes: Visual Foot Exam 10/04/2021 Diabetes: Hemoglobin A1C 11/15/2022 08/15/2022, 11/25 Influenza Vaccine (#1) 2024 , 03/28/2021, 03/05/2021, Additional history exists Pneumococcal Vaccine: 65+ Years Completed 01/18/2016, 07/24/2013, 03/09/2010 Hepatitis B Vaccine Aged Out No longe r eligible based on patient's age to complete this topic Insurance MEDICARE [facility] MEDICARE Care Teams Esthetician/Spa Coordinator Relationship Specialty Start Date End Date [place] [address] PCP - General Family Medicine 10/04/21
--- OUTSIDE RECORDS SUMMARY | 2024-07-23 18:31 | XMS_ITS | Encounter Summary ---
Author Organization [facility] Address [address] [place] [address] Care Team Providers Care Enrollment Management Coordinator Name Role Phone Latesha Lang APRN Primary Care Provider [phone] Audrey Farooq MD Unavailable [phone] Katlin Rodriguez APRN Unavailable [phone] Jorge Abreu MD Unavailable Donato Hale MD Unavailable Zack Santiago MD Unavailable [phone] Zack Santiago MD Unavailable [phone] Donato Hale MD Unavailable Encounter Details Date Type Department Care Team (Late Contact Info) Description 01/18/2016 Scanned Document [address] [address] Provider, Generic Social History Tobacco [...] Upcoming Encounters Date Type Department Care Team ([facility] Contact Info) Description 09/01/2024 11:00 AM EDT Office Visit [address] [place] [phone] Latesha Lang APRN [address] [place] [address] [place], [place] [phone] documented as of this encounter Visit Diagnoses Not on filedocumented in this encounter Care Teams Enrollment Management Coordinator Relationship Specialty Start Date End Date Latesha Lang APRN [address] [place] [facility], [place] [id number] PCP - General Family Medicine 01/18/15 Audrey Farooq MD 12[address] [facility], [place] [phone] Physician Ophthalmology 03/13/18 02/27/24 Katlin Rodriguez APRN [address] [address] Securities Supervisor 03/13/18 02/27/24 Jorge Abreu MD [address] [place] [address] [place] [address] Physician Urology 03/13/18 02/27/24 Donato Hale MD [address] [place] [address] [place] [address] Golf Cart Mechanic Internal Medicine 03/13/18 11/15/22 Zack Santiago MD [address] [place] [address] Internal Medicine 11/24/21 11/15/22 Zack Santiago MD [address] [place] [address] Internal Medicine 11/24/21 02/27/24 Donato Hale MD [address] [facility] [address] [place] [address] Golf Cart Mechanic Internal Medicine 11/16/22 documented as of this encounter
--- OUTSIDE RECORDS SUMMARY | 2024-07-23 18:31 | XMS_ITS | Encounter Summary ---
Author Organization [facility] Address [address] [place] [address] Care Team Providers Care Systems Librarian Name Role Phone Latesha Lang APRN Primary Care Provider [phone] Audrey Farooq MD Unavailable [phone] Katlin Rodriguez APRN Unavailable [phone] Jorge Abreu MD Unavailable Donato Hale MD Unavailable Zack Santiago MD Unavailable [phone] Zack Santiago MD Unavailable [phone] Donato Hale MD Unavailable Encounter Details Date Type Department Care Team (Late Contact Info) Description 11/20/2018 Scanned Document [address] [address] Cardiology, Scan Social History Tobacco Use Types Packs/Day [...] Upcoming Encounters Date Type Department Care Team ([facility] Contact Info) Description 09/01/2024 11:00 AM EDT Office Visit [address] [place] [place] [phone] Latesha Lang APRN [address] [place] [address] [place], [place] [phone] documented as of this encounter Visit Diagnoses Not on filedocumented in this encounter Care Teams Systems Librarian Relationship Specialty Start Date End Date Latesha Lang APRN [address] [place] [facility], [place] [phone] PCP - General Family Medicine 01/18/15 Audrye Farooq MD 1244 [facility] [place], [place] [phone] Physician Ophthalmology 03/13/18 02/27/24 Katlin Rodriguez APRN [address] [address] Weigher Alloy 03/13/18 02/27/24 Jorge Abreu MD [address] [place] [address] [place] [address] Physician Urology 03/13/18 02/27/24 Donato Hale MD [address] [place] [address] [place] [address] Heat Treatment Technician Internal Medicine 03/13/18 11/15/22 Zack Santiago MD [address] [place] [address] Internal Medicine 11/24/21 11/15/22 Zack Santiago MD [address] [place] [address] Internal Medicine 11/24/21 02/27/24 Donato Hale MD [address] [facility] [address] [place] [address] Heat Treatment Technician Internal Medicine 11/16/22 documented as of this encounter
--- OUTSIDE RECORDS SUMMARY | 2024-07-23 18:31 | XMS_ITS | Encounter Summary ---
Author Organization [facility] Address [address] [place] [address] Care Team Providers Care Import Manager Name Role Phone Latesha Lang APRN Primary Care Provider Audrey Farooq MD Unavailable [phone] Katlin Rodriguez APRN Unavailable [phone] Jorge Abreu MD Unavailable Donato Hale MD Unavailable [phone] Zack Santiago MD Unavailable [phone] Zack Santiago MD Unavailable [phone] Donato Hale MD Unavailable Encounter Details Date Type Department Care Team (Late Contact Info) Description 07/05/2017 Scanned Document [address] [address] Provider, Generic Social History Tobacco [...] Upcoming Encounters Date Type Department Care Team ([facility] Contact Info) Description 09/01/2024 11:00 AM EDT Office Visit [address] [place] [phone] Latesha Lang APRN [address] [place] [address] [place], [place] [phone] documented as of this encounter Visit Diagnoses Not on filedocumented in this encounter Care Teams Import Manager Relationship Specialty Start Date End Date Latesha Lang APRN [address] [place] [facility], [place] [phone] PCP - General Family Medicine 01/18/15 Audrey Farooq MD 1244 [facility], [place] [phone] Physician Ophthalmology 03/13/18 02/27/24 Katlin Rodriguez APRN [address] [address] Coil Connector 03/13/18 02/27/24 Jorge Abreu MD [address] [place] [address] [place] [address] Physician Urology 03/13/18 02/27/24 Donato Hale MD [address] [place] [address] [place] [address] Keyliner Internal Medicine 03/13/18 11/15/22 Zack Santiago MD [address] [place] [address] Internal Medicine 11/24/21 11/15/22 Zack Santiago MD [address] [place] [address] Internal Medicine 11/24/21 02/27/24 Donato Hale MD [address] [facility] [address] [place] [address] Keyliner Internal Medicine 11/16/22 documented as of this encounter
--- OUTSIDE RECORDS SUMMARY | 2024-07-23 18:31 | XMS_ITS | Encounter Summary ---
Author Organization [facility] Address [address] [place] [address] Care Team Providers Care Battery Engineer Name Role Phone Latesha Lang APRN Primary Care Provider Audrey Farooq MD Unavailable [phone] Katlin Rodriguez APRN Unavailable [phone] Jorge Abreu MD Unavailable Donato Hale MD Unavailable [phone] Zack Santiago MD Unavailable [phone] Zack Santiago MD Unavailable [phone] Donato Hale MD Unavailable Encounter Details Date Type Department Care Team (Late Contact Info) Description 06/16/2015 Scanned Document [address] [address] Provider, Generic Social History Tobacco [...] Description 09/01/2024 11:00 AM EDT Office Visit [address] [place] [phone] Latesha Lang APRN 1244 [facility] [place], [place] [phone] documented as of this encounter Procedures Procedure Name Priority Date/Time Associated Diagnosis Comments IMAGING BREAST/BX/MAMMO 06/16/2015 documented in this encounter Results * IMAGING BREAST/BX/MAMMO (06/16/2015) Anatomical Region Laterality Modality Other Narrative 06/19/2015 1:13 AM EST Ordered by an unspecified provider. Generic Provider IMG LEGACY PROCEDURE S documented in this encounter Visit Diagnoses Not on filedocumented in this encounter Care Teams Battery Engineer Relationship Specialty Start Date End Date Latesha Lang APRN 1244 [facility] [place], [place] [phone] PCP - General Family Medicine 01/18/15 Audrey Farooq MD 1244 [facility] [place] [address] Physician Ophthalmology 03/13/18 02/27/24 Katlin Rodriguez APRN [address] [place] [address] Metal Weigher 03/13/18 02/27/24 Jorge Abreu MD [address] [place], [place] [address] [address] [place] [address] Physician Urology 03/13/18 02/27/24 Donato Hale MD [address] [place], [place] [address] [address] [place] [address] Molding Plasterer Internal Medicine 03/13/18 11/15/22 Zack Santiago MD [facility] [address] [place] [address] Internal Medicine 11/24/21 11/15/22 Zack Santiago MD 100 [facility] [address] [place] [address] Internal Medicine 11/24/21 02/27/24 Donato Hale MD 100 [facility] [address] [place] [address] Molding Plasterer Internal Medicine 11/16/22 documented as of this encounter
== END 2024-07-23 15:13 | disposition home or self-care (01) ==
PROVIDERS: PCP Nurse Practitioner Family; Visit Provider Internal Medicine Hypertension Specialist
DX: I10 Essential (primary) hypertension (principal)
CPT/HCPCS: 99214

== ENCOUNTER → 2024-07-23 15:00 | Outpatient (BNVA) | payer MEDICARE, SELFPAY | PROVIDERS: PCP Nurse Practitioner Family; Visit Provider Internal Medicine Hypertension Specialist | DX: I12.9 Hypertensive chronic kidney disease with stage 1 through stage 4 chronic kidney disease, or unspecified chronic kidney disease (principal); E11.22 Type 2 diabetes mellitus with diabetic chronic kidney disease; N18.2 Chronic kidney disease, stage 2 (mild) | CPT/HCPCS: 99212 ==

== ENCOUNTER 2025-02-04 13:51 | Outpatient (AMB) | payer MEDICARE, SELFPAY ==
[2025-02-04 13:54] VITALS: BP 142/44; PULSE 32; O2SAT 99; BMI 21.7
--- NOTE | 2025-02-04 13:54 | HO.NEPHOV ---
Vital Signs 02/04/25 13:54 Height 5 ft Weight 111 lb BMI 21.7 BP 142/44 H Blood Pressure Location Lt brachial Position Sitting Pulse 32 L Pulse Source Pulse Oximeter Pulse Oximetry (%) 99 Oxygen Delivery Method Room Air Intake Visit Reasons: Follow up-Conf Customer Services Supervisor Required: No Accompanied by: Daughter Allergies gluten Allergy (Unknown, Verified 02/04/25 13:56) Diarrhea milk protein Allergy (Unknown, Uncoded 11/05/23 14:30) Nausea and Vomiting tilactase Allergy (Unknown, Uncoded 11/05/23 14:30) Diarrhea Medication List - Last Reconciled 02/04/25 by Zack Santiago MD amlodipine 5 mg PO BID clopidogrel 75 mg PO DAILY doxazosin 1 mg PO BEDTIME fenofibric acid (choline) 135 mg PO DAILY hydrochlorothiazide 25 mg PO DAILY levothyroxine (Synthroid) 25 mcg PO DAILY lisinopril 40 mg PO DAILY netarsudil-latanoprost 0.02-0.005 % (Rocklatan) drps ophthalmic (eye) DAILY olmesartan 40 mg PO DAILY rosuvastatin 20 mg PO BEDTIME HPI Comments Details: Amrita is a pleasant 83-year-old woman with a history of longstanding hypertension with 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 She has superimposed white coat effect. Overall she is done well since the last visit. No new complaints today. She has been monitoring blood pressure at home. Home blood pressure readings are excellent with most readings staying in the 120-130 mm Hg systolic. Occasionally she is got systolic in the 100 range. In no hypertensive episodes. She exercises regularly. She walks about 6 miles a day. She has on a gluten free diet She had leg edema while she was on amlodipine 10 mg a day. Currently she is on 5 mg b.i.d. without significant edema. 02/04/25 Recently Doxszocin 1mg was added and Lisinopril to Olmesartan 40 mg due to cough Feels lightheaded Accompanied by [facility] History (Updated 11/07/23 @ 15:03 by Zack Santiago MD) FH: CABG (coronary artery bypass surgery) Surgical History H/O: hysterectomy Hx of cataract surgery Family History Mother Stroke Heart disease Hypertension Physical Exam Vital Signs: Last Vital Signs Pulse 32 L 02/04/25 13:54 BP 142/44 H 02/04/25 13:54 Pulse Ox 99 02/04/25 13:54 Oxygen Delivery Method Room Air 02/04/25 13:54 BMI result Body Mass Index 21.7 Const General: comfortable; No acute distress Orientation/consciousness: patient oriented x3 Eyes General: appearance normal, both eyes and all related structures Visual Clement: normal visual clement by confrontation Neck Neck: Yes supple and Yes no JVD Resp Effort & Inspection: normal respiratory effort and respiratory effort not decreased Cardio Palpation: no palpable S3 and no palpable S4 Heart sounds: no rubs GI Inspection: Yes normal to inspection Palpation (GI): Soft to palpation Percussion: Yes normal to percussion Auscultation: normal bowel sounds General: Yes no CVA tenderness Back/Spine/Pelvis Back: no CVA tenderness Skin General skin exam: no petechiae and no purpura Neuro General: patient oriented x3 and no focal motor deficits Extrem General: No clubbing and No edema Assessment & Plan Assessment & Plan (1) HTN (hypertension): Code(s): I10 - Essential (primary) hypertension Category: Medical Plan Amrita is a 84-year-old woman with a history of well-controlled hypertension based on home blood pressure readings. Office readings elevated due to superimposed white coat effect. At this point I have encouraged her to keep monitoring blood pressure at home. Stay on low-sodium diet I have not made any changes to the antihypertensive regimen. 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 Renal function stable with a creatinine 0.9 Continue to avoid nephrotoxic agents including NSAIDs and maintain A1c less than 7%. 02/04/25 Relative hypotension Symptomatic Borderline bradycardia Stop Doxazocin Watch BP at home May need to lower Benicar DAughter will call me in 4--5 days Orders: Orders Basic Metabolic Panel 6 Months I10 - Essential (primary) hypertension Basic Metabolic Panel 4 Weeks I10 - Essential (primary) hypertension Coding Level of Care Code Est Pt Level 4 (23258) Diagnoses HTN (hypertension) I10
--- OUTSIDE RECORDS SUMMARY | 2025-02-04 16:56 | XMS_ITS | Encounter Summary ---
Author Organization [facility] Address [address] [place] [address] Care Team Providers Care Vice President Financial Name Role Phone PreciousWiltonbruno RUBIO Primary Care Provider Audrey Farooq MD Unavailable [phone] Katlin Rodriguez APRN Unavailable [phone] Jorge Abreu MD Unavailable Donato Hale MD Unavailable Zack Santiago MD Unavailable [phone] Zack Santiago MD Unavailable [phone] Donato Hale MD Unavailable Encounter Details Date Type Department Care Team (Late st Contact Info) Description 12/27/2014 Scanned Document [address] [address] Provider, Generic Social History Tobacco Use Types Packs/Day Years Used Date Smoking Tobacco: Never Assessed Comments Unknown Sex and Gender Information Value Date Recorded Sex Assigned at Not on file Legal Sex Female 11:42 AM EDT Gender Identity Not on file Sexual Orientation Not on file documented as of this encounter Plan of Treatment Upcoming Encounters Date Type Department Care Team (Late st Contact Info) Description 02/10/2025 10:30 AM EDT Appointment [facility] Radiology [address] [place] [phone] Latesha Lang APRN [address] [facility], [place] [id number] documented as of this encounter Procedures Procedure Name Priority Date/Time Associated Diagnosis Comments LAB RESULT 12/27/2014 documented in this encounter Results * LAB RESULT (12/27/2014) Narrative 12/27/2014 Ordered by an unspecified provider. us Generic Provider HX AMB PROCEDURES Final Result documented in this encounter Visit Diagnoses Not on filedocumented in this encounter Care Teams Vice President Financial Relationship Specialty Start Date End Date Latesha Lang APRN [address] [place] [address] PCP - General Family Medicine 01/18/15 Audrey Farooq MD [address] [place] [address] Physician Ophthalmology 03/13/18 02/27/24 Katlin Rodriguez APRN 100 [facility] [address] [place] [address] Managed Care Specialist 03/13/18 02/27/24 Jorge Abreu MD [address] [place] [address] Physician Urology 03/13/18 02/27/24 Donato Hale MD [address] [place] [address] [place] [address] Employment Agency Manager Internal Medicine 03/13/18 11/15/22 Zack Santiago MD 100 [facility] [address] [address] Internal Medicine 11/24/21 11/15/22 Zack Santiago MD 100 [facility] [address] [address] Internal Medicine 11/24/21 02/27/24 Donato Hale MD 100 [facility] [address] [address] Employment Agency Manager Internal Medicine 11/16/22 documented as of this encounter
--- OUTSIDE RECORDS SUMMARY | 2025-02-04 16:56 | XMS_ITS | Clinical Summary ---
Author Organization [facility] Address [address] [place] [address] Care Team Providers Care Major League Baseball Player Name Role Phone Latesha Lang APRN Primary Care Provider [phone] Allergies Active Allergy Reactions Criticality Noted Date [...] 2 (two) times a day. 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 07/05/2017 09/18/2017 Immunizations [...] 51 03/04/2024 12:30 PM EDT Temperature 36.5 C (97.7 F) 03/04/2024 12:30 PM EDT Respiratory Rate 18 03/04/2024 12:30 PM EDT [...] Additional history exists COVID-19 Vaccine ( season) 2025 09/21/2021, 04/29/2021, 07/06/2020, Additional history exists Influenza Vaccine (#1) 2025 , 03/27/2023, 03/23/2022, Additional history exists DTap / Tdap / Td (3 - Tdap) 03/25/2032 03/25/2022, 0 01/10/2014 Pneumococcal Vaccine Completed 01/18/2016, 07/24/2013, 03/09/2010 Hepatitis B Vaccines Aged Out No long er eligible based on patient's age to complete this topic RSV Ped < 20 months Aged Out No longe r eligible based on patient's age to complete this topic Advance Directives For more information, please contact: [phone] Documents on File Type Date Recorded Patient Dye Colorist Formulator Expl anation Advance Directive and Living Will 09/19/2016 2:05 PM Latest Code Status on File Code Status Date Activated Date Inactivated Comments Full Code 03/04/2024 2:20 AM 03/04/2024 11:38 PM Care Teams Major League Baseball Player Relationship Specialty Start Date End Date Latesha Lang APRN [facility] [place] [address] PCP - General Family Medicine 01/13/15
--- OUTSIDE RECORDS SUMMARY | 2025-02-04 16:56 | XMS_ITS | Encounter Summary ---
Author Organization [facility] Address [address] [place] [address] Care Team Providers Care Liquor Department Manager Name Role Phone LangWiltonbruno RUBIO Primary Care Provider Audrey Farooq MD Unavailable Katlin Rodriguez APRN Unavailable [phone] Jorge Abreu MD Unavailable Donato Hale MD Unavailable Zack Santiago MD Unavailable [phone] Zack Santiago MD Unavailable [phone] Donato Hale MD Unavailable Encounter Details Date Type Department Care Team (Late st Contact Info) Description 02/22/2015 Scanned Document [facility] Dermatology [address] [address] Provider, Generic Social History Tobacco Use Types [...] Info) Description 02/10/2025 10:30 AM EDT Appointment [facility] Radiology [address] [place] [phone] Latesha Lang APRN [address] [facility] [place] [phone] documented as of this encounter Visit Diagnoses Not on filedocumented in this encounter Care Teams Liquor Department Manager Relationship Specialty Start Date End Date Latesha Lang APRN [address] [place] [address] PCP - General Family Medicine 01/18/15 Audrey Farooq MD [address] [place] [address] Physician Ophthalmology 03/13/18 02/27/24 Katlin Rodriguez APRN [address] [address] Wood Mechanist 03/13/18 02/27/24 Jorge Abreu MD [address] [place], [place] [address] [place] [address] Physician Urology 03/13/18 02/27/24 Donato Hale MD [address] [place], [place] [address] [place] [address] Casino Duty Manager Internal Medicine 03/13/18 11/15/22 Zack Santiago MD [address] [address] Internal Medicine 11/24/21 11/15/22 Zack Santiago MD 100 [facility] [address] [address] Internal Medicine 11/24/21 02/27/24 Donato Hale MD [address] [address] Casino Duty Manager Internal Medicine 11/16/22 documented as of this encounter
--- OUTSIDE RECORDS SUMMARY | 2025-02-04 16:56 | XMS_ITS | Encounter Summary ---
Author Organization [facility] Address [address] [place] [address] Phone Care Team Providers Care Rosin Barrel Filler Name Role Phone Latesha Lang APRN Primary Care Provider Unavaila ble Encounter Details Date Type Department Care Team (Late st Contact Info) Description 10/10/2021 Telephone [facility] [address] [place] [address] Zack Santiago MD Social History [...] had her labs done last week at [facility] and would to know if we can pull the results rohan haven't sent them yet. Her weight was also put in wrong it is supposed to be 113 lbs not 131. Thank you documented in this encounter Plan of Treatment Not on file documented as of this encounter Visit Diagnoses Not on filedocumented in this encounter Care Teams Rosin Barrel Filler Relationship Specialty Start Date End Date Latesha Lang APRN [address] [place] [address] PCP - General Family Medicine 10/04/21 documented as of this encounter
--- OUTSIDE RECORDS SUMMARY | 2025-02-04 16:56 | XMS_ITS | Encounter Summary ---
Author Organization [facility] Address [address] [place] [address] Care Team Providers Care Continuous Process Machine Operator Name Role Phone Latesha Lang APRN Primary Care Provider Audrey Farooq MD Unavailable Katlin Rodriguez APRN Unavailable [phone] Jorge Abreu MD Unavailable Donato Hale MD Unavailable Zack Santiago MD Unavailable [phone] Zack Santiago MD Unavailable [phone] Donato Hale MD Unavailable Encounter Details Date Type Department Care Team (Late st Contact Info) Description 07/04/2018 Scanned Document [facility] [address] [place] [address] Latesha Lang APRN [address] [place] [address] Social History Tobacco Use Types [...] Info) Description 02/10/2025 10:30 AM EDT Appointment [facility] Radiology [address] [place] [address], [place] [phone] Latesha Lang, JOANNE [address] [facility], [place] [phone] documented as of this encounter Visit Diagnoses Not on filedocumented in this encounter Care Teams Continuous Process Machine Operator Relationship Specialty Start Date End Date Latesha Lang APRN [address] [facility], [place] [phone] PCP - General Family Medicine 01/18/15 Audrey Farooq MD [address] [place] [address] Physician Ophthalmology 03/13/18 02/27/24 Katlin Rodriguez APRN [address] [facility] [address] [place] [address] Funeral Arrangement Director 03/13/18 02/27/24 Jorge Abreu MD 360 [facility] [address] [place] [address] Physician Urology 03/13/18 02/27/24 Donato Hale MD 360 [facility] [address] [place] [address] Geophysicist Internal Medicine 03/13/18 11/15/22 Zack Santiago MD [address] [place] [address] Internal Medicine 11/24/21 11/15/22 Zack Santiago MD 100 [facility] [address] [place] [address] Internal Medicine 11/24/21 02/27/24 Donato Hale MD [address] [facility] [address] [place] [address] Geophysicist Internal Medicine 11/16/22 documented as of this encounter
--- OUTSIDE RECORDS SUMMARY | 2025-02-04 16:56 | XMS_ITS | Encounter Summary ---
Author Organization [facility] Address [address] [place] [address] Care Team Providers Care Family Resource Management Specialist Name Role Phone Precious Latesha RUBIO Primary Care Provider [phone] Audrey Farooq MD Unavailable Katlin Rodriguez APRN Unavailable [phone] Jorge Abreu MD Unavailable Donato Hale MD Unavailable Zack Santiago MD Unavailable [phone] Zack Santiago MD Unavailable [phone] Donato Hale MD Unavailable Encounter Details Date Type Department Care Team (Late st Contact Info) Description 02/16/2020 Scanned Document [address] [address] Provider, Generic Social History Tobacco Use Types Packs/Day Years Used Date Smoking Tobacco: Never Smokeless Tobacco: Never Alcohol Use Standard Drinks/Week Comments No 0 (1 standard drink = 0.6 oz pur e alcohol) Comments No Sex and Gender Information Value Date Recorded [...] Info) Description 02/10/2025 10:30 AM EDT Appointment [facility] Radiology [address] [place] [address] [place] [phone] Latesha Lang APRN [address] [place] [address] documented as of this encounter Visit Diagnoses Not on filedocumented in this encounter Care Teams Family Resource Management Specialist Relationship Specialty Start Date End Date Latesha Lang APRN [address] [facility] [address] PCP - General Family Medicine 01/18/15 Audrey Farooq MD 12[address] [facility] [address] Physician Ophthalmology 03/13/18 02/27/24 Katlin Rodriguez APRN [address] [address] Senior Software Development Manager 03/13/18 02/27/24 Jorge Abreu MD [address] [place], [place] [phone] Physician Urology 03/13/18 02/27/24 Donato Hale MD [address] [place] [address] Sixth Grade Teacher Internal Medicine 03/13/18 11/15/22 Zack Santiago MD [address] [place] [address] Internal Medicine 11/24/21 11/15/22 Zack Santiago MD [address] [place] [address] Internal Medicine 11/24/21 02/27/24 Donato Hale MD [address] [place] [address] Sixth Grade Teacher Internal Medicine 11/16/22 documented as of this encounter
--- OUTSIDE RECORDS SUMMARY | 2025-02-04 16:56 | XMS_ITS | Encounter Summary ---
Author Organization [facility] Address [address] [place] [address] Care Team Providers Care Ice Cream Chef Name Role Phone Precious Latesha RUBIO Primary Care Provider [phone] Audrey Farooq MD Unavailable Katlin Rodriguez APRN Unavailable [phone] Jorge Abreu MD Unavailable Donato Hale MD Unavailable Zack Santiago MD Unavailable [phone] Zack Santiago MD Unavailable [phone] Donato Hale MD Unavailable Encounter Details Date Type Department Care Team (Late st Contact Info) Description 04/30/2015 Scanned Document [address] [address] Provider, Generic Social History Tobacco [...] Info) Description 02/10/2025 10:30 AM EDT Appointment [facility] Radiology [address] [facility] [place] [address] Latesha Lang APRN [address] [place] [address] documented as of this encounter Visit Diagnoses Not on filedocumented in this encounter Care Teams Ice Cream Chef Relationship Specialty Start Date End Date Latesha Lang APRN [address] [place] [address] PCP - General Family Medicine 01/18/15 Audrey Farooq MD 1244 [place] [address] Physician Ophthalmology 03/13/18 02/27/24 Katlin Rodriguez APRN [address] [place] [address] Shipboard Intelligence Analyst 03/13/18 02/27/24 Jorge Abreu MD [address] [place] [address] Physician Urology 03/13/18 02/27/24 Donato aHle MD [address] [place], [place] [address] [place] [address] Electrode Cleaner Internal Medicine 03/13/18 11/15/22 Zack Santiago MD [address] [address] Internal Medicine 11/24/21 11/15/22 Zack Santiago MD 100 [facility] [address] [address] Internal Medicine 11/24/21 02/27/24 Donato Hale MD 100 [facility] [address] [address] Electrode Cleaner Internal Medicine 11/16/22 documented as of this encounter
--- OUTSIDE RECORDS SUMMARY | 2025-02-04 16:56 | XMS_ITS | Encounter Summary ---
Author Organization [facility] Address [address] [place] [address] Care Team Providers Care Stretch Box Tender Name Role Phone Precious Latesha RUBIO Primary Care Provider Audrye Farooq MD Unavailable [phone] Katlin Rodriguez APRN Unavailable [phone] Jorge Abreu MD Unavailable Donato Hale MD Unavailable Zack Santiago MD Unavailable [phone] Zack Santiago MD Unavailable [phone] Donato Hale MD Unavailable Encounter Details Date Type Department Care Team (Late st Contact Info) Description 01/18/2016 Scanned Document [address] [address] Provider, Generic Social History Tobacco [...] Info) Description 02/10/2025 10:30 AM EDT Appointment [facility] Radiology [facility] [place] [address] Latesha Lang APRN [address] [facility], [place], [place] [phone] documented as of this encounter Visit Diagnoses Not on filedocumented in this encounter Care Teams Stretch Box Tender Relationship Specialty Start Date End Date Latesha Lang APRN [address] [facility], [place] [address] PCP - General Family Medicine 01/18/15 Audrey Farooq MD [address] [facility], [place] [address] Physician Ophthalmology 03/13/18 02/27/24 Katlin Rodriguez APRN [address] [address] Filter Changing Technician 03/13/18 02/27/24 Jorge Abreu MD [address] [place] [address] Physician Urology 03/13/18 02/27/24 Donato Hale MD [address] [place] [address] Electrical Tester Internal Medicine 03/13/18 11/15/22 Zack Santiago MD [address] [place] [address] Internal Medicine 11/24/21 11/15/22 Zack Santiago MD 100 [facility] [address] [place] [address] Internal Medicine 11/24/21 02/27/24 Donato Hale MD 100 [facility] [address] [place] [address] Electrical Tester Internal Medicine 11/16/22 documented as of this encounter
--- OUTSIDE RECORDS SUMMARY | 2025-02-04 16:56 | XMS_ITS | Clinical Summary ---
Author Organization [facility] Address [address] [place] [address] Care Team Providers Care Hot Stone Setter Name Role Phone LangWiltonbruno RUBIO Primary Care Provider Donato Hale MD Unavailable [phone] Allergies Active Allergy Reactions Criticality Noted Date Comments Casein Nausea And Vomiting Low 08/08/2019 Gluten Diarrhea Low 06/07/2020 Milk Protein GI Intolerance/Nausea/Vomiting Low Tilactase Diarrhea Low 06/07/2020 Medications lisinopril (PRINIVIL,ZeSTRIL) 40 MG tablet Take 1 tablet (40 mg total) by mouth daily. Active clopidogrel (PLAVIX) 75 MG tabletIndications:Vagin al vault prolapse,Cystocele, midline,Rectocele,Femal e stress incontinence Take 1 tablet (75 mg total) by mouth daily. 019 Active rosuvastatin (CRESTOR) 20 MG tablet 022 Active SUPER B COMPLEX/C PO Take 1 tablet by mouth. Active MULTIPLE VITAMIN PO Take 1 tablet by mouth. Active amLODIPine (NORVASC) 10 MG tablet Take 1 tablet (10 mg total) by mouth daily. Active Lancets (onetouch ultrasoft) lancetsIndications:Type 2 diabetes mellitus without complication, unspecified whether retirement insulin use (HCC) USE TO TEST THREE TIMES A DAY 90 lancet(s) 1 Active glucose blood (OneTouch Ultra Test) test stripIndications:Type 2 diabetes mellitus without complication, unspecified whether parts counterman insulin use (HCC) USE TO TEST BLOOD SUGAR DAILY 100 strip 2 Active Choline Fenofibrate (Fenofibric Acid) 135 MG Capsule Delayed ReleaseIndications:Fami lial hypercholesterolemia TAKE ONE CAPSULE BY MOUTH EVERY DAY 90 capsule 3 025 Active doxazosin (CARDURA) 1 MG tablet Take 1 tablet (1 mg total) by mouth. 025 2025 Active Synthroid 25 MCG tabletIndications:Acqui red hypothyroidism Take 1 tablet (25 mcg total) by mouth every morning. 90 tablet 3 025 Active fluticasone (FloNASE) 50 mcg/spray nasal sprayIndications:Nasal congestion 1 spray into each nostril nightly. 1 each 1 025 2024 Active hydroCHLOROthiazide (HYDRODIURIL) 25 MG tabletIndications:Hyper tension due to endocrine disorder TAKE ONE TABLET BY MOUTH EVERY DAY 90 tablet 3 025 Active hydroCHLOROthiazide (HYDRODIURIL) 25 MG tabletIndications:Hyper tension due to endocrine disorder TAKE ONE TABLET BY MOUTH EVERY DAY 90 tablet 3 024 2024 Discontinued cephalexin (KEFLEX) 500 MG capsuleIndications:Dysu alena Take 1 capsule (500 mg total) by mouth 3 (three) times a day. 21 capsule 025 2024 Active Problems Problem Noted Date Diagnosed Date Hypertension 07/21/2024 Chest pain 03/04/2024 Memory loss 03/02/2024 Overview (03/02/2024): Family concerned that patient is not remembering facts, dates, repeats questions, denies previous conversations. Patient disagrees. Cognitive test: clock incorrectly drawn, 2 word recall. Patient refuses evaluation for memory loss Assessment & Plan (01/05/2025 3:38 PM EDT): SLUMS test and MMSE given to patient, results canned into chart Stage 2 chronic kidney disease 10/04/2021 Acquired hypothyroidism 11/18/2019 Assessment & Plan (01/05/2025 3:20 PM EDT): Orders: Synthroid 25 MCG tablet; Take 1 tablet (25 mcg total) by mouth every morning. Female stress incontinence 05/24/2018 Familial hypercholesterolemia 07/05/2017 Hypertension due to endocrine disorder 6 Assessment & Plan (01/05/2025 3:38 PM EDT): Orders: Microalbumin, Creatinine, Urine, Random (No IB msg for normal - MG/PACT) DEXA Bone Density axial skeleton, 1 or more sites; Future [facility] to [facility] Glaucoma of both eyes 01/18/2016 Coronary atherosclerosis 11/10/2014 Type 2 diabetes mellitus wit h kidney complication, without long-term current use of insulin 11/10/2014 Assessment & Plan (01/05/2025 3:20 PM EDT): Orders: Microalbumin, Creatinine, Urine, Random (No IB msg for normal - MG/PACT) DEXA Bone Density axial skeleton, 1 or more sites; Future Dysmetabolic syndrome X 11/10/2014 Resolved Problems Problem [...] Encounters Date Type Department Care Team Description 02/04/2025 Scanned Document [facility] [address] [place] [address] Latesha Lang APRN 01/27/2025 Telephone [facility] [place] [address] [place] [address] Estrada, Ghada P 01/23/2025 Refill [facility] [address] [place] [address] Latesha Lang APRN Hypertension due to endocrine disorder 01/20/2025 Scanned Document [facility] [address] [place] [address] Latesha Lang APRN 01/20/2025 Telephone [facility] [place] [address] Latesha Lang APRN Other (Blood pressure readings) 01/07/2025 Telephone [facility] Age [address] [place] [address] Estrada, Ghada P 01/02/2025 Orders Only [facility] [address] [place] [address] Latesha Lang APRN Dysuria (Primary Dx) 01/02/2025 Telephone [facility] [address] [place] [address] Latesha Lang APRN Medical Complaint 01/01/2025 9:30 AM EDT Office Visit [facility] [address] [place] [address] Latesha Lang APRN Hypertension due to endocrine disorder (Primary Dx); Memory loss; Type 2 diabetes mellitus with stage 2 chronic kidney disease, without long-term current use of insulin (HCC); Postmenopausal; Acquired hypothyroidism ; Nasal congestion 01/01/2025 Travel 12/27/2024 Refill [facility] [place] [address] [place] [address] Latesha Lang APRN Acquired hypothyroidism 12/22/2024 Telephone [facility] [place] [address] [place] [place] [address] Latesha Lang APRN 12/22/2024 Nurse Triage [address] [place] [address] Latesha Lang APRN from Last 3 Months Immunizations Immunization Administration Dates Next Due Covid-19 mRNA Primary [...] Passive Smoke Exposure: Past Smokeless Tobacco: Never Tobacco Cessation:Counseling Given: Not [...] Sign Reading Time Taken Comments Blood Pressure 128/60 01/09/2025 8:06 AM EDT Pulse 50 01/01/2025 9:50 AM EDT Temperature 36 C (96.8 F) 01/01/2025 9:50 AM EDT Respiratory Rate 14 01/01/2025 9:50 AM EDT Oxygen Saturation 99% 01/01/2025 9:50 AM EDT Inhaled Oxygen Concentration - - Weight 50.8 kg (112 lb) 01/01/2025 9:50 AM EDT Height 152.4 cm (5') 01/01/2025 9:50 AM EDT Body Mass Index 21.87 01/01/2025 9:50 AM EDT Plan of Treatment Upcoming Encounters Date Type Department Care Team (Late st Contact Info) Description 02/10/2025 10:30 AM EDT Appointment [facility] Radiology 7A [facility] [place] [address] Latesha Lang, STAIR BUILDER [address] [place], [place] [id number] Health Maintenance Due Date Last Done Comments Advance Care Planning 1942 Physical 1960 Zoster (Shingles) Vaccine (1 of 2) 1992 RSV Vaccine 60 years and older and Patients (1 - 1-dose 75+ series) 2017 DXA Bone Density (Females,Ages 65 and older) 02/16/2018 02/17/2016, 02/17/2016 Annual Wellness Visit 07/04/2019 07/03/2018, 017 Ophthalmology Exam 05/30/2020 05/30/2019 Influenza Vaccine 12/26/2024 02/28/2024, , 03/23/2022, Additional history exists COVID-19 Vaccine ( season) 2025 09/21/2021, 04/29/2021, 07/06/2020, Additional history exists Foot Exam 02/27/2025 02/28/2024, 04/28, 12/07/2020, Additional history exists Hemoglobin A1C 04/29/2025 10/28/2024, 1007/2023, 11/16/2022, Additional history exists Creatinine with GFR 11/04/2025 11/04/2024, 11/22/2021, 10/06/2021, Additional history exists Lipid Panel 11/04/2025 11/04/2024, 11/25, 12/07/2020, Additional history exists Microalbumin/Creatinine Ratio Urine 01/01/2026 01/01/2025, 02/28/2024, 08/15/2022, Additional history exists DTaP/Tdap/Td Vaccines (3 - Tdap) 03/25/2032 03/25/2022, 01/10/2014 Pneumococcal Vaccines 50+ Completed 2015, 07/24/2013, 03/09/2010 Hepatitis B Vaccines Aged Out No long er eligible based on patient's age to complete this topic Medical Devices Implanted Type Area Ct Tech Device Identifier Shelf Expiration Date Model / Serial / Lot [id number] Lens Iol +22 Mc Posterior Chamber 1 Pc Fld Uv Blue Light - [id number] Implanted:Qty: 1 on 02/03/2020 by Rohini Galindo MD at [facility] Lens [employer] ACU0T0.22 0 / [id number] / Acu0t0.215 Lens Iol +21.5 Mc Posterior Chamber 1 Pc Fld Uv Blue Light - [id number] Implanted:Qty: 1 on 03/09/2020 by Rohini Galindo MD at [facility] [place], [place] Lens [employer] ACU0T0.21 5 / [id number] / Sling Pubourethral Blue Mesh Clr Desara 1000um Taper Pp - [id number] Implanted:Qty: 1 on 05/24/2018 by Delroy Negro MD at [facility] Urogyn N/A: Vagina [employer] 12/19/2020 [id number] / / [01] [id number]] [id number] ] 2017-11-26 5[17] 2020-11-26 5 Procedures Procedure Name Priority Date/Time Associated Diagnosis Comments MICROALBUMIN, CREATININE, URINE, RANDOM Routine 01/01/2025 10:26 AM EDT 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, without long-term current use of insulin (HCC) LIPID PANEL REFLEX DIRECT LDL Routine 11/04/2024 6:22 AM EDT Familial hypercholesterolemia TSH REFLEX TO FREE T4 Routine 11/04/2024 6:22 AM EDT Acquired hypothyroidism COMPREHENSIVE METABOLIC PANEL Routine 11/04/2024 6:22 AM EDT 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, without long-term current use of insulin (HCC) COMPLETE BLOOD COUNT, WITH DIFFERENTIAL Routine 11/04/2024 6:22 AM EDT 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, without long-term current use of insulin (HCC) POCT GLYCOSYLATED HEMOGLOBIN (HGB A1C) Routine 10/28/2024 11:56 AM EDT Type 2 diabetes mellitus with stage 2 chronic kidney disease, without long-term current use of insulin (HCC) IMAGING DEXA 02/17/2016 from Last 3 Months or Most Recently Relevant to Health Maintenance Results * (ABNORMAL) Microalbumin, Creatinine, Urine, Random (No IB msg for normal - MG/PACT) (01/01/2025 10:26 AM EDT) Creatinine, Urine, Random 122 20 - 275 mg/dL [facility] Microalbumin, Urine, Random 7.7 See Note: mg/dL [facility] Comment: Reference Range: Reference Range Not established Microalbumin/Creat inine Ratio 63(H) <30 mg/g creat [facility] Comment: The ADA defines abnormalities in albumin excretion as follows: Albuminuria Category Result (mg/g creatinine) Normal to Mildly increased <30 Moderately increased 30-299 Severely increased > OR = 300 The ADA recommends that at least two of three specimens collected within a 3-6 month period be abnormal before considering a patient to be within a diagnostic category. Urine Urine specimen / Unknown 01/01/2025 10:26 AM EDT 01/02/2025 6:58 AM EDT us Latesha Lang APRN URINE ORDERABLES Final Result [facility] [address] [place] [address] * Lipid Panel Reflex Direct LDL (11/04/2024 6:22 AM EDT) Cholesterol, Total 135 <200 mg/dL [facility] Cholesterol, HDL 50 > OR = 50 mg/dL [facility] Triglycerides 110 <150 mg/dL [facility] LDL Cholesterol 65 mg/dL (calc) [facility] Comment: Reference range: <100 Desirable range <100 mg/dL for primary prevention; <70 mg/dL for patients with CHD or diabetic patients with > or = 2 CHD risk factors. LDL-C is now calculated using the Jignesh-Dennis calculation, which is a validated novel method providing better accuracy than the Friedewald equation in the estimation of LDL-C. Jignesh MELLO et al. AFSHIN. 2013;310(19): 7442-3360 (http://education.Ligon Discovery.Broadlink/faq/RVA834) Cholesterol/HDL Ratio 2.7 <5.0 (calc) [facility] Non HDL Chol. (LDL+VLDL) 85 <130 mg/dL (calc) [facility] Comment: For patients with diabetes plus 1 major ASCVD risk factor, treating to a non-HDL-C goal of <100 mg/dL (LDL-C of <70 mg/dL) is considered a therapeutic option. Blood Blood specimen / Unknown 11/04/2024 6:22 AM EDT 11/04/2024 6:22 AM EDT Narrative [facility] - 11/05/2024 12:34 AM EDT FASTING:YES FASTING: YES [facility] ORDERABLES Fin al Result Performing Organization Address [facility] de Phone Number [facility] [address] [place] [phone] * TSH REFLEX FREE T4 (11/04/2024 6:22 AM EDT) [facility] TSH reflex Free T4 1.98 0.40 - 4.50 mIU/L [facility] Blood Blood specimen / Unknown 11/04/2024 6:22 AM EDT 11/04/2024 6:22 AM EDT Narrative [facility] - 11/05/2024 12:34 AM EDT FASTING:YES FASTING: YES [facility] BLOOD ORDERABLES Fin al Result Performing Organization Address [facility] de Phone Number [facility] [address] [place] [phone] * (ABNORMAL) Complete Blood Count, with Differential (11/04/2024 6:22 AM EDT) Pathologist [facility] White Blood Cell Count 3.5(L) 3.8 - 10.8 Thousand/ uL [facility] Red Blood Cell Count 4.57 3.80 - 5.10 Million/u L [facility] Hemoglobin 13.5 11.7 - 15.5 g/dL [facility] Hematocrit 41.9 35.0 - 45.0 % [facility] [employer] [facility] [employer] MCV 91.7 80.0 - 100.0 fL [facility] [employer] [facility] [employer] MCH 29.5 27.0 - 33.0 pg [facility] MCHC 32.2 32.0 - 36.0 g/dL [facility] Comment: For adults, a slight decrease in the calculated MCHC value (in the range of 30 to 32 g/dL) is most likely not clinically significant; however, it should be interpreted with caution in correlation with other red cell parameters and the patient's clinical condition. RDW 13.5 11.0 - 15.0 % [facility] Platelet Count 160 140 - 400 Thousand/ uL [facility] MPV 12.0 7.5 - 12.5 fL [facility] Abs Neutrophils Auto 1,484(L) 1,500 - 7,800 cells/uL [facility] Abs Lymphocytes Auto 1,516 850 - 3,900 cells/uL [facility] Abs Monocytes Auto 291 200 - 950 cells/uL [facility] Abs Eosinophils Auto 172 15 - 500 cells/uL [facility] Abs Basophils Auto 39 0 - 200 cells/uL [facility] Neutrophils Auto 42.4 % [facility] Lymphocytes Auto 43.3 % [facility] Monocytes Auto 8.3 % [facility] Eosinophils Auto 4.9 % [facility] Basophils Auto 1.1 % [facility] Blood Blood specimen / Unknown 11/04/2024 6:22 AM EDT 11/04/2024 6:22 AM EDT Narrative [facility] - 11/05/2024 12:34 AM EDT FASTING:YES FASTING: YES Sailaja Alonso Luis Enrique STAIR BUILDER LAB BLOOD ORDERABLES Fin al Result [facility] [address] [place] [address] * (ABNORMAL) Comprehensive Metabolic Panel (11/04/2024 6:22 AM EDT) [facility] Glucose 99 65 - 99 mg/dL [facility] Comment: Fasting reference interval Blood Urea Nitrogen (BUN) 27(H) 7 - 25 mg/dL [facility] Creatinine 1.04(H) 0.60 - 0.95 mg/dL [facility] Creatinine w/ eGFR 54(L) > OR = 60 mL/min/1. 73m2 [facility] BUN/Creatinine Ratio 26(H) 6 - 22 (calc) [facility] Sodium 142 135 - 146 mmol/L [facility] Potassium 3.8 3.5 - 5.3 mmol/L [facility] Chloride 104 98 - 110 mmol/L [facility] CO2 29 20 - 32 mmol/L [facility] Calcium 9.4 8.6 - 10.4 mg/dL [facility] Protein, Total 6.2 6.1 - 8.1 g/dL [facility] Albumin 4.2 3.6 - 5.1 g/dL [facility] Globulin 2.0 1.9 - 3.7 g/dL (calc) [facility] Albumin/Globulin Ratio 2.1 1.0 - 2.5 (calc) [facility] Bilirubin, Total 0.6 0.2 - 1.2 mg/dL [facility] Alkaline Phosphatase 47 37 - 153 U/L [facility] Aspartate Aminotrans (AST) 24 10 - 35 U/L [facility] Alanine Aminotrans (ALT) 17 6 - 29 U/L [facility] Blood Blood specimen / Unknown 11/04/2024 6:22 AM EDT 11/04/2024 6:22 AM EDT Narrative [facility] - 11/05/2024 12:34 AM EDT FASTING:YES FASTING: YES Sailaja Alonso [facility] STAIR BUILDER LAB BLOOD ORDERABLES Fin al Result [facility] [address] [place] [phone] * POCT A1C (10/28/2024 11:56 AM EDT) Hemoglobin A1C 5.3 4.0 - 6.0 % Lot Number [id number] Pet Care Technician Pass Pass Blood 10/28/2024 11:5 6 AM EDT Sailaja Dudley STAIR BUILDER POINT OF CARE TEST ORDER ALBERTO Final Result * IMAGING DEXA (02/17/2016) Anatomical Region Laterality Modality Other Narrative 02/17/2016 Ordered by an unspecified provider. Generic Provider IMG LEGACY PROCEDURES Final Res ult from Last 3 Months or Most Recently Relevant to Health Maintenance Insurance [facility] MEDIC[facility] MEDICARE PART A & B [facility] MEDICARE Advance Directives * Full Code (Latest Code Status on File) Date Activated Date Inactivated Comments 05/24/2018 4:38 PM 02/03/2020 11:48 AM * Full Code Date Activated Date Inactivated Comments 05/24/2018 8:56 AM 05/24/2018 4:38 PM Care Teams Hot Stone Setter Relationship Specialty Start Date End Date Latesha Lang APRN [address] [place] [address] PCP - General Family Medicine 01/18/15 Donato Hale MD [address] [place] [address] Reinforced Concrete Inspector Internal Medicine 11/16/22
--- OUTSIDE RECORDS SUMMARY | 2025-02-04 16:56 | XMS_ITS | Encounter Summary ---
Author Organization [facility] Address [address] [place] [address] Care Team Providers Care Literacy Tutor Name Role Phone Latesha Lang APRN Primary Care Provider [phone] Donato Hale MD Unavailable [phone] Encounter Details Date Type Department Care Team (Late Contact Info) Description 01/20/2025 Scanned Document [address] [address] Latesha Lang APRN [facility] [place] [address] Social History Tobacco Use Types Packs/Day Years [...] Department Care Team (Late Contact Info) Description 02/10/2025 10:30 AM EDT Appointment [facility] Radiology [address] [facility] [place] [address] Latesha Lang APRN [address] [place], [place] [id number] documented as of this encounter Visit Diagnoses Not on filedocumented in this encounter Care Teams Literacy Tutor Relationship Specialty Start Date End Date Latesha Lang APRN [address] [place], [place] [id number] PCP - General Family Medicine 01/18/15 Donato Hale MD [address] [facility] [place] [phone] Churn Operator Margarine Internal Medicine 11/16/22 documented as of this encounter
--- OUTSIDE RECORDS SUMMARY | 2025-02-04 16:56 | XMS_ITS | Encounter Summary ---
Author Organization [facility] Address [address] [place] [address] Care Team Providers Care Research Test Engine Evaluator Name Role Phone Precious Latesha RUBIO Primary Care Provider Audrey Farooq MD Unavailable Katlin Rodriguez APRN Unavailable [phone] Jorge Abreu MD Unavailable [phone] Donato Hale MD Unavailable [phone] Zack Santiago MD Unavailable [phone] Zack Santiago MD Unavailable [phone] Donato Hale MD Unavailable Encounter Details Date Type Department Care Team (Late st Contact Info) Description 11/14/2019 Scanned Document [address] [address] Provider, Generic Social History Tobacco [...] Info) Description 02/10/2025 10:30 AM EDT Appointment [facility] Radiology [facility] [facility] [place] [address] Latesha Lang APRN [address] [facility], [place] [id number] documented as of this encounter Visit Diagnoses Not on filedocumented in this encounter Care Teams Research Test Engine Evaluator Relationship Specialty Start Date End Date Latesha Lang APRN [address] [facility] [place] [address] PCP - General Family Medicine 01/18/15 Audrey Farooq MD [address] [facility] [place] [address] Physician Ophthalmology 03/13/18 02/27/24 Katlin Rodriguez APRN [address] [address] Wire Spiral Binder 03/13/18 02/27/24 Jorge Abreu MD [address] [place] [address] Physician Urology 03/13/18 02/27/24 Donato Hale MD [address] [place] [address] Supervisor Wound Internal Medicine 03/13/18 11/15/22 Zack Santiago MD [address] [place] [address] Internal Medicine 11/24/21 11/15/22 Zack Santiago MD 100 [facility] [address] [place] [address] Internal Medicine 11/24/21 02/27/24 Donato Hale MD 100 [facility] [address] [place] [address] Supervisor Wound Internal Medicine 11/16/22 documented as of this encounter
--- OUTSIDE RECORDS SUMMARY | 2025-02-04 16:56 | XMS_ITS | Encounter Summary ---
Author Organization [facility] Address [address] [place] [address] Care Team Providers Care Peripatologist Name Role Phone Precious Latesha RUBIO Primary Care Provider Audrey Farooq MD Unavailable Katlin Rodriguez APRN Unavailable [phone] Jorge Abreu MD Unavailable [phone] Donato Hale MD Unavailable Zack Santiago MD Unavailable [phone] Zakc Santiago MD Unavailable [phone] Donato Hale MD Unavailable Encounter Details Date Type Department Care Team (Late st Contact Info) Description 02/18/2015 Scanned Document [address] [address] Provider, Generic Social History Tobacco [...] EDT Appointment [facility] Radiology [address]A [facility] [place] [address] Latesha Lang APRN [address] [place] [address] documented as of this encounter Visit Diagnoses Not on filedocumented in this encounter Care Teams Peripatologist Relationship Specialty Start Date End Date Latesha Lang APRN [address] [place] [address] PCP - General Family Medicine 01/18/15 Audrey Farooq MD [address] [place] [address] Physician Ophthalmology 03/13/18 02/27/24 Katlin Rodriguez APRN [address] [place] [address] Senior Software Development Engineer 03/13/18 02/27/24 Jorge Abreu MD [address] [place] [address] Physician Urology 03/13/18 02/27/24 Donato Hale MD [address] [place], [place] [address] [place] [address] Licensed Social Worker Internal Medicine 03/13/18 11/15/22 Zack Santiago MD [address] [address] Internal Medicine 11/24/21 11/15/22 Zack Santiago MD 100 [facility] [address] [address] Internal Medicine 11/24/21 02/27/24 Donato Hale MD [address] [facility] [address] [address] Licensed Social Worker Internal Medicine 11/16/22 documented as of this encounter
--- OUTSIDE RECORDS SUMMARY | 2025-02-04 16:56 | XMS_ITS | Encounter Summary ---
Author Organization [facility] Address [address] [place] [address] Care Team Providers Care Tower Control Operator Name Role Phone Precious Latesha RUBIO Primary Care Provider Audrey Farooq MD Unavailable Katlin Rodriguez APRN Unavailable [phone] Jorge Abreu MD Unavailable Donato Hale MD Unavailable [phone] Zack Santiago MD Unavailable [phone] Zack Santiago MD Unavailable [phone] Donato Hale MD Unavailable Encounter Details Date Type Department Care Team (Late st Contact Info) Description 06/16/2015 Scanned Document [address] [address] Provider, Generic Social History Tobacco [...] Info) Description 02/10/2025 10:30 AM EDT Appointment [facility] Radiology [address] [facility] [place] [address] Latesha Lang APRN [address] [place] [address] documented as of this encounter Procedures Procedure Name Priority Date/Time Associated Diagnosis Comments IMAGING BREAST/BX/MAMMO 06/16/2015 documented in this encounter Results * IMAGING BREAST/BX/MAMMO (06/16/2015) Anatomical Region Laterality Modality Other Narrative 06/19/2015 1:13 AM EST Ordered by an unspecified provider. us Generic Provider IMG LEGACY PROCEDURES Edited Re sult - Final documented in this encounter Visit Diagnoses Not on filedocumented in this encounter Care Teams Tower Control Operator Relationship Specialty Start Date End Date Latesha Lang APRN [address] [place] [address] PCP - General Family Medicine 01/18/15 Audrey Farooq MD [address] [place] [address] Physician Ophthalmology 03/13/18 02/27/24 Katlin Rodriguez APRN 100 [facility] [address] [place] [address] Transportation Supervisor 03/13/18 02/27/24 Jorge Abreu MD [address] [place] [address] [address] [place] [address] Physician Urology 03/13/18 02/27/24 Donato Hale MD [address] [place] [address] [address] [place] [address] Guide Setter Internal Medicine 03/13/18 11/15/22 Zack Santiago MD [address] [address] [place] [address] Internal Medicine 11/24/21 11/15/22 Zack Santiago MD 100 [employer] [address] [place] [address] Internal Medicine 11/24/21 02/27/24 Donato Hale MD 100 [employer] [address] [place] [address] Guide Setter Internal Medicine 11/16/22 documented as of this encounter
--- OUTSIDE RECORDS SUMMARY | 2025-02-04 16:56 | XMS_ITS | Encounter Summary ---
Author Organization [facility] Address [address] [place] [address] Care Team Providers Care Specimen Technician Name Role Phone Precious Latesha RUBIO Primary Care Provider [phone] Audrey Farooq MD Unavailable [phone] Katlin Rodriguez APRN Unavailable [phone] Jorge Abreu MD Unavailable Donato Hale MD Unavailable Zack Santiago MD Unavailable [phone] Zack Santiago MD Unavailable [phone] Donato Hale MD Unavailable Encounter Details Date Type Department Care Team (Late st Contact Info) Description 11/19/2015 Scanned Document [address] [address] Provider, Generic Social History Tobacco [...] Info) Description 02/10/2025 10:30 AM EDT Appointment [facility] Radiology [address] [facility] [address] Latesha Lang APRN [address] [place] [address] documented as of this encounter Visit Diagnoses Not on filedocumented in this encounter Care Teams Specimen Technician Relationship Specialty Start Date End Date Latesha Lang APRN [address] [place] [address] PCP - General Family Medicine 01/18/15 Audrey Farooq MD 1244 [place] [address] Physician Ophthalmology 03/13/18 02/27/24 Katlin Rodriguez APRN [address] [place] [address] Emanations Analysis Technician 03/13/18 02/27/24 Jorge Abreu MD [address] [place] [address] Physician Urology 03/13/18 02/27/24 Donato Hale MD [address] [place], [place] [address] [place] [address] Math Professor Internal Medicine 03/13/18 11/15/22 Zack Santiago MD [address] [address] Internal Medicine 11/24/21 11/15/22 Zack Santiago MD [address] [facility] [facility] [address] [address] Internal Medicine 11/24/21 02/27/24 Donato Hale MD 100 [facility] [address] [address] Math Professor Internal Medicine 11/16/22 documented as of this encounter
--- OUTSIDE RECORDS SUMMARY | 2025-02-04 16:56 | XMS_ITS | Encounter Summary ---
Author Organization [facility] Address [address] [place] [address] Care Team Providers Care Panel Machine Operator Name Role Phone PreciousWiltonbruno RUBIO Primary Care Provider Audrey Farooq MD Unavailable Katlin Rodriguez APRN Unavailable [phone] Jorge Abreu MD Unavailable Donato Hale MD Unavailable [phone] Zack Santiago MD Unavailable [phone] Zack Santiago MD Unavailable [phone] Donato Hale MD Unavailable [phone] Encounter Details Date Type Department Care Team (Late st Contact Info) Description 01/13/2015 Scanned Document [address] [address] Provider, Generic Social History Tobacco [...] Info) Description 02/10/2025 10:30 AM EDT Appointment [facility] Radiology 7A [facility] [place] [address] Latesha Lang APRN [address] [place] [address] [place], [place] [address] documented as of this encounter Visit Diagnoses Not on filedocumented in this encounter Care Teams Panel Machine Operator Relationship Specialty Start Date End Date Latesha Lang APRN [address] [place] [address] [place], [place] [address] PCP - General Family Medicine 01/18/15 Audrey Farooq MD [address] [place] [address] [place], [place] [address] Physician Ophthalmology 03/13/18 02/27/24 Katlin Rodriguez APRN 100 [facility] [address] [place] [address] Book Coverer 03/13/18 02/27/24 Jorge Abreu MD [address] [place] [address] [address] [place] [address] Physician Urology 03/13/18 02/27/24 Donato Hale MD [address] [place] [address] [address] [place] [address] Public Relations Officer Internal Medicine 03/13/18 11/15/22 Zack Santiago MD [address] [address] Internal Medicine 11/24/21 11/15/22 Zack Santiago MD 100 [facility] [address] [place] [address] Internal Medicine 11/24/21 02/27/24 Donato Hale MD 100 [facility] [address] [address] Public Relations Officer Internal Medicine 11/16/22 documented as of this encounter
--- OUTSIDE RECORDS SUMMARY | 2025-02-04 16:56 | XMS_ITS | Encounter Summary ---
Author Organization [facility] Address [address] [place] [address] Care Team Providers Care Reaming Machine Tender Name Role Phone Latesha Lang APRN Primary Care Provider [phone] Donato Hale MD Unavailable [phone] Reason for Visit * Reason Onset Date Comments Other 01/20/2025 Blood pressure r gabriella Encounter Details Date Type Department Care Team ([facility] st Contact Info) Description 01/20/2025 Telephone [place] [address] [place] [address] Latesha Lang APRN [facility] [place] [address] Other (Blood pressure readings) Social History Tobacco Use Types Packs/Day Years [...] on file documented as of this encounter Last Filed Vital Signs Vital Sign Reading Time Taken Comments Blood Pressure 128/60 01/09/2025 8:06 AM EDT Pulse - - Temperature - - Respiratory Rate - - Oxygen Saturation - - Inhaled Oxygen Concentration - - Weight - - Height - - Body Mass Index - - documented in this encounter Plan of Treatment Upcoming Encounters Date Type Department Care Team (Late st Contact Info) Description 02/10/2025 10:30 AM EDT Appointment [facility] Radiology 7A [facility] [place] [address] Latesha Lang APRN 1244 [facility] [place] [address] documented as of this encounter Visit Diagnoses Not on filedocumented in this encounter Care Teams Reaming Machine Tender Relationship Specialty Start Date End Date Latesha Lang APRN [address] [place] [address] PCP - General Family Medicine 01/18/15 Donato Hale MD 1244 [facility] [address] Battery Tester Field Internal Medicine 11/16/22 documented as of this encounter
--- OUTSIDE RECORDS SUMMARY | 2025-02-04 16:56 | XMS_ITS | Encounter Summary ---
Author Organization [facility] Address [address] [place] [address] Care Team Providers Care Morphologist Name Role Phone Latesha Lang APRN Primary Care Provider [phone] Donato Hale MD Unavailable [phone] Encounter Details Date Type Department Care Team (Late Contact Info) Description 02/04/2025 Scanned Document [address] [address] Latesha Lang APRN [facility] [place] [address] Social History Tobacco Use Types Packs/Day Years [...] Description 02/10/2025 10:30 AM EDT Appointment [facility] Radiology [address] [facility] [place] [address] Latesha Lang APRN [address] [place], [place] [address] documented as of this encounter Visit Diagnoses Not on filedocumented in this encounter Care Teams Morphologist Relationship Specialty Start Date End Date Latesha Lang APRN [address] [place] [address] PCP - General Family Medicine 01/18/15 Donato Hale MD [address] [place] [facility] [place] [address] Shear Scrapman Internal Medicine 11/16/22 documented as of this encounter
--- OUTSIDE RECORDS SUMMARY | 2025-02-04 16:57 | XMS_ITS | Encounter Summary ---
Author Organization [facility] Address [address] [place] [address] Care Team Providers Care Rheostat Assembler Name Role Phone Precious Latesha RUBIO Primary Care Provider Audrey Farooq MD Unavailable Katlin Rodriguez APRN Unavailable [phone] Jorge Abreu MD Unavailable Donato Hale MD Unavailable [phone] Zack Santiago MD Unavailable [phone] Zack Santiago MD Unavailable [phone] Donato Hale MD Unavailable Encounter Details Date Type Department Care Team (Late st Contact Info) Description 07/05/2017 Scanned Document [address] [address] Provider, Generic Social History Tobacco [...] Info) Description 02/10/2025 10:30 AM EDT Appointment [facility] Radiology 7A [place] [address] Latesha Lang APRN 1244 [facility] [place] [address] documented as of this encounter Visit Diagnoses Not on filedocumented in this encounter Care Teams Rheostat Assembler Relationship Specialty Start Date End Date Latesha Lang APRN 1244 [facility] [place] [place] [place] [address] PCP - General Family Medicine 01/18/15 Audrey Farooq MD 1244 [facility] [place] [place] [place] [address] Physician Ophthalmology 03/13/18 02/27/24 Katlin Rodriguez APRN [address] [address] External Grinder Tool 03/13/18 02/27/24 Jorge Arbeu MD [address] [place] [address] Physician Urology 03/13/18 02/27/24 Donato Hale MD [address] [place] [address] Avionics Engineer Internal Medicine 03/13/18 11/15/22 Zack Santiago MD [address] [place] [address] Internal Medicine 11/24/21 11/15/22 Zack Santiago MD 100 [facility] [address] [place] [address] Internal Medicine 11/24/21 02/27/24 Donato Hale MD 100 [facility] [address] [place] [address] Avionics Engineer Internal Medicine 11/16/22 documented as of this encounter
--- OUTSIDE RECORDS SUMMARY | 2025-02-04 16:57 | XMS_ITS | Encounter Summary ---
Author Organization [facility] Address [address] [place] [address] Care Team Providers Care Transmission Inspector Name Role Phone Precious Latesha RUBIO Primary Care Provider Audrey Farooq MD Unavailable [phone] Katlin Rodriguez APRN Unavailable [phone] Jorge Abreu MD Unavailable Donato Hale MD Unavailable Zack Santiago MD Unavailable [phone] Zack Santiago MD Unavailable [phone] Donato Hale MD Unavailable Encounter Details Date Type Department Care Team (Late st Contact Info) Description 02/20/2018 Scanned Document [address] [address] Provider, Generic Social History Tobacco [...] EDT Appointment [facility] Radiology 7A [facility] [place] [address] Latesha Lang APRN 1244 [facility], [place] [address] documented as of this encounter Procedures Procedure Name Priority Date/Time Associated Diagnosis Comments LAB RESULT 02/20/2018 documented in this encounter Results * LAB RESULT (02/20/2018) Narrative 02/20/2018 Ordered by an unspecified provider. us Generic Provider HX AMB PROCEDURES Edited Result - Final documented in this encounter Visit Diagnoses Not on filedocumented in this encounter Care Teams Transmission Inspector Relationship Specialty Start Date End Date Latesha Lang APRN 1244 [facility], [place] [address] PCP - General Family Medicine 01/18/15 Audrey Farooq MD 1244 [place] [address] Physician Ophthalmology 03/13/18 02/27/24 Katlin Rodriguez APRN 100 [facility] [address] [place] [address] Prenatal Genetic Counselor 03/13/18 02/27/24 Jorge Abreu MD [address] [place] [address] [address] [place] [address] Physician Urology 03/13/18 02/27/24 Donato Hale MD [address] [place] [address] [address] [place] [address] Paper Cup Handle Machine Operator Internal Medicine 03/13/18 11/15/22 Zack Santiago MD [address] [place] [address] Internal Medicine 11/24/21 11/15/22 Zack Santiago MD [address] [place] [address] Internal Medicine 11/24/21 02/27/24 Donato Hale MD [address] [place] [address] Paper Cup Handle Machine Operator Internal Medicine 11/16/22 documented as of this encounter
--- OUTSIDE RECORDS SUMMARY | 2025-02-04 16:57 | XMS_ITS | Encounter Summary ---
Author Organization [facility] Address [address] [place] [address] Care Team Providers Care Supervisor Wire Rope Fabrication Name Role Phone Latesha Lang APRN Primary Care Provider [phone] Donato Hale MD Unavailable [phone] Encounter Details Date Type Department Care Team (Late Contact Info) Description 03/14/2024 Scanned Document [address] [address] Latesha Lang APRN [address] [place] [address] Social History Tobacco Use Types Packs/Day Years [...] Info) Description 02/10/2025 10:30 AM EDT Appointment [facility] Radiology [address] [place] [address] [place] [address] Latesha Lang APRN [address] [place] [address] documented as of this encounter Visit Diagnoses Not on filedocumented in this encounter Care Teams Supervisor Wire Rope Fabrication Relationship Specialty Start Date End Date Latesha Lang APRN [address], [place] [address] PCP - General Family Medicine 01/18/15 Donato Hale MD [address] [place], [place] [address] Account Development Specialist Internal Medicine 11/16/22 documented as of this encounter
--- OUTSIDE RECORDS SUMMARY | 2025-02-04 16:57 | XMS_ITS | Encounter Summary ---
Author Organization [facility] Address [address] [place] [address] Care Team Providers Care Supply Chain Logistics Manager Name Role Phone Precious Latesha RUBIO Primary Care Provider Audrey Farooq MD Unavailable Katlin Rodriguez APRN Unavailable [phone] Jorge Abreu MD Unavailable Donato Hale MD Unavailable Zack Santiago MD Unavailable [phone] Zack Santiago MD Unavailable [phone] Donato Hale MD Unavailable [phone] Encounter Details Date Type Department Care Team (Late st Contact Info) Description 10/08/2016 Scanned Document [address] [address] Provider, Generic Social History Tobacco [...] Info) Description 02/10/2025 10:30 AM EDT Appointment [facility] Radiology 7A [facility] [place] [address] Latesha Lang APRN 1244 [facility], [place] [address] documented as of this encounter Visit Diagnoses Not on filedocumented in this encounter Care Teams Supply Chain Logistics Manager Relationship Specialty Start Date End Date Latesha Lang APRN 1244 [place] [address] PCP - General Family Medicine 01/18/15 Audrey Farooq MD 1244 [place] [address] Physician Ophthalmology 03/13/18 02/27/24 Katlin Rodriguez APRN [address] [address] Financial Manager 03/13/18 02/27/24 Jorge Abreu MD [address] [place] [address] Physician Urology 03/13/18 02/27/24 Donato Hale MD [address] [place] [address] Product Marketing Coordinator Internal Medicine 03/13/18 11/15/22 Zack Santiago MD [address] [place] [address] Internal Medicine 11/24/21 11/15/22 Zack Santiago MD 100 [facility] 200 [place] [address] Internal Medicine 11/24/21 02/27/24 oDnato Hale MD 100 [facility] [address] [place] [address] Product Marketing Coordinator Internal Medicine 11/16/22 documented as of this encounter
--- OUTSIDE RECORDS SUMMARY | 2025-02-04 16:57 | XMS_ITS | Encounter Summary ---
Author Organization [facility] Address [address] [place] [address] Care Team Providers Care Hog Scraper Name Role Phone Latesha Lang APRN Primary Care Provider Audrey Farooq MD Unavailable [phone] Katlin Rodriguez APRN Unavailable [phone] Jorge Abreu MD Unavailable [phone] Donato Hale MD Unavailable Zack Santiago MD Unavailable [phone] Zack Santiago MD Unavailable [phone] Donato Hale MD Unavailable Encounter Details Date Type Department Care Team (Late st Contact Info) Description 07/04/2018 Scanned Document [facility] 1244 [place] [address] Latesha Lang APRN 1244 [place] [address] Social History Tobacco Use Types [...] Appointment [facility] Radiology [address] [place] [address], [place] [address] Latesha Lang, JOANNE [address] [facility], [place] [address] documented as of this encounter Visit Diagnoses Not on filedocumented in this encounter Care Teams Hog Scraper Relationship Specialty Start Date End Date Latesha Lang APRN [address] [facility], [place] [address] PCP - General Family Medicine 01/18/15 Audrey Farooq MD 1244 [facility] [place] [address] Physician Ophthalmology 03/13/18 02/27/24 Katlin Rodriguez APRN 100 [facility] [address] [place] [address] Flow Match Sofa Cutter 03/13/18 02/27/24 Jorge Abreu MD 360 [facility] [address] [place] [address] Physician Urology 03/13/18 02/27/24 Donato Hale MD 360 [facility] [address] [place] [address] Ward Supervisor Internal Medicine 03/13/18 11/15/22 Zack Santiago MD 100 [employer] [address] [place] [address] Internal Medicine 11/24/21 11/15/22 Zack Santiago MD 100 [facility] 200 [place] [address] Internal Medicine 11/24/21 02/27/24 Donato Hale MD 100 [address] Bae[address] [facility] 200 [place] [address] Ward Supervisor Internal Medicine 11/16/22 documented as of this encounter
--- OUTSIDE RECORDS SUMMARY | 2025-02-04 16:57 | XMS_ITS | Encounter Summary ---
Author Organization [facility] Address [address] [place] [address] Care Team Providers Care Auto Mechanic Supervisor Name Role Phone LangWiltonbruno RUBIO Primary Care Provider Audrey Farooq MD Unavailable [phone] Katlin Rodriguez APRN Unavailable [phone] Jorge Abreu MD Unavailable [phone] Donato Hale MD Unavailable Zack Santiago MD Unavailable [phone] Zack Santiago MD Unavailable [phone] Donato Hale MD Unavailable Encounter Details Date Type Department Care Team (Late st Contact Info) Description 05/25/2021 Scanned Document [address] [address] Urgent Care, Scan Social History [...] Info) Description 02/10/2025 10:30 AM EDT Appointment [facility] Radiology [address] [place] [address] [place] [address] Latesha Lang APRN [address] [place] [address] documented as of this encounter Visit Diagnoses Not on filedocumented in this encounter Care Teams Auto Mechanic Supervisor Relationship Specialty Start Date End Date Latesha Lang APRN [address] [place] [address] PCP - General Family Medicine 01/18/15 Audrey Farooq MD 1244 [place] [address] Physician Ophthalmology 03/13/18 02/27/24 Katlin Rodriguez APRN [address] [address] Embosser Apprentice 03/13/18 02/27/24 Jorge Abreu MD [address] [place] [address] Physician Urology 03/13/18 02/27/24 Donato Hale MD [address] [place] [address] It Business Systems Analyst Internal Medicine 03/13/18 11/15/22 Zack Santiago MD 100 [address] [place] [address] Internal Medicine 11/24/21 11/15/22 Zack Santiago MD 100 [address] [place] [address] Internal Medicine 11/24/21 02/27/24 Donato Hale MD 100 [address] [place] [address] It Business Systems Analyst Internal Medicine 11/16/22 documented as of this encounter
--- OUTSIDE RECORDS SUMMARY | 2025-02-04 16:57 | XMS_ITS | Encounter Summary ---
Author Organization [facility] Address [address] [place] [address] Care Team Providers Care Plastic Eye Technician Name Role Phone Precious Latesha RUBIO Primary Care Provider Audrey Farooq MD Unavailable [phone] Katlin Rodriguez APRN Unavailable [phone] Jorge Abreu MD Unavailable Donato Hale MD Unavailable [phone] Zack Santiago MD Unavailable [phone] Zack Santiago MD Unavailable [phone] Donato Hale MD Unavailable [phone] Encounter Details Date Type Department Care Team (Late st Contact Info) Description 03/05/2017 Scanned Document [address] [address] Provider, Generic Social History [...] Info) Description 02/10/2025 10:30 AM EDT Appointment [facility] Radiology [facility]A [facility] [place] [address] Latesha Lang APRN 1244 [facility] [phone] documented as of this encounter Procedures Procedure Name Priority Date/Time Associated Diagnosis Comments LAB RESULT 03/05/2017 documented in this encounter Results * LAB RESULT (03/05/2017) Narrative 03/05/2017 Ordered by an unspecified provider. us Generic Provider HX AMB PROCEDURES Edited Result - Final documented in this encounter Visit Diagnoses Not on filedocumented in this encounter Care Teams Plastic Eye Technician Relationship Specialty Start Date End Date Latesha Lang APRN 1244 [facility], [place] [phone] PCP - General Family Medicine 01/18/15 Audrey Farooq MD 1244 [place] [address] Physician Ophthalmology 03/13/18 02/27/24 Katlin Rodriguez APRN 100 [facility] [address] [place] [address] Stoper 03/13/18 02/27/24 Jorge Abreu MD [address] [place] [address] [address] [place] [address] Physician Urology 03/13/18 02/27/24 Donato Hale MD [address] [place] [address] [address] [place] [address] Sales Leader Internal Medicine 03/13/18 11/15/22 Zack Santiago MD [address] [place] [address] Internal Medicine 11/24/21 11/15/22 Zack Santiago MD [address] [place] [address] Internal Medicine 11/24/21 02/27/24 Donato Hale MD [address] [place] [address] Sales Leader Internal Medicine 11/16/22 documented as of this encounter
--- OUTSIDE RECORDS SUMMARY | 2025-02-04 16:57 | XMS_ITS | Encounter Summary ---
Author Organization [facility] Address [address] [place] [address] Care Team Providers Care Sales Operations Consultant Name Role Phone Latesha Lang APRN Primary Care Provider Audrey Farooq MD Unavailable Katlin Rodriguez APRN Unavailable Jorge Abreu MD Unavailable Donato Hale MD Unavailable Zack Santiago MD Unavailable [phone] Zack Santiago MD Unavailable [phone] Donato Hale MD Unavailable [phone] Encounter Details Date Type Department Care Team (Late st Contact Info) Description 07/04/2018 Scanned Document [facility] [address] [place] [address] Latesha Lang APRN [address] [place] [address] Social History Tobacco Use Types [...] Info) Description 02/10/2025 10:30 AM EDT Appointment [facility] Radiology [address] [place] [address], [place] [id number] Latesha Lang, JOANNE [address] [facility], [place] [id number] documented as of this encounter Visit Diagnoses Not on filedocumented in this encounter Care Teams Sales Operations Consultant Relationship Specialty Start Date End Date Latesha Lang APRN [address] [facility], [place] [id number] PCP - General Family Medicine 01/18/15 Audrey Farooq MD [address] [place] [address] Physician Ophthalmology 03/13/18 02/27/24 Katlin Rodriguez APRN 100 [facility] [address] [place] [address] Electronics Tech 03/13/18 02/27/24 Jorge Abreu MD 360 [facility] [address] [place] [address] Physician Urology 03/13/18 02/27/24 Donato Hale MD 360 [facility] [address] [place] [address] Automotive Collision Repair Instructor Internal Medicine 03/13/18 11/15/22 Zack Santiago MD [address] [place] [address] Internal Medicine 11/24/21 11/15/22 Zack Santiago MD 100 [facility] [address] [place] [address] Internal Medicine 11/24/21 02/27/24 Donato Hale MD [address] [facility] [address] [place] [address] Automotive Collision Repair Instructor Internal Medicine 11/16/22 documented as of this encounter
--- OUTSIDE RECORDS SUMMARY | 2025-02-04 16:57 | XMS_ITS | Encounter Summary ---
Author Organization [facility] Address [address] [place] [address] Care Team Providers Care Consulting Services Project Manager Name Role Phone Precious Latesha RUBIO Primary Care Provider Audrey Farooq MD Unavailable Katlin Rodriguez APRN Unavailable [phone] Jorge Abreu MD Unavailable Donato Hale MD Unavailable [phone] Zack Santiago MD Unavailable [phone] Zack Santiago MD Unavailable [phone] Donato Hale MD Unavailable Encounter Details Date Type Department Care Team (Late st Contact Info) Description 02/17/2016 Scanned Document [address] [address] Provider, Generic Social History Tobacco [...] Info) Description 02/10/2025 10:30 AM EDT Appointment [facility] Radiology [address] [place] [address] Latesha Lang, CONVEYOR BELT OPERATOR [address] [place] [address] documented as of this encounter Procedures Procedure Name Priority Date/Time Associated Diagnosis Comments IMAGING DEXA 02/17/2016 IMAGING DEXA 02/17/2016 IMAGING BREAST/BX/MAMMO 02/17/2016 IMAGING BREAST/BX/MAMMO 02/17/2016 documented in this encounter Results * IMAGING DEXA (02/17/2016) Anatomical Region Laterality Modality Other Narrative 02/17/2016 Ordered by an unspecified provider. Generic Provider IMG LEGACY PROCEDURES Final Res ult * IMAGING DEXA (02/17/2016) Anatomical Region Laterality Modality Other Narrative 02/17/2016 Ordered by an unspecified provider. us Generic Provider IMG LEGACY PROCEDURES Final Res ult * IMAGING BREAST/BX/MAMMO (02/17/2016) Anatomical Region Laterality Modality Other Narrative 02/23/2016 3:32 AM EDT Ordered by an unspecified provider. us Generic Provider IMG LEGACY PROCEDURES Edited Re sult - Final * IMAGING BREAST/BX/MAMMO (02/17/2016) Anatomical Region Laterality Modality Other Narrative 02/22/2016 2:43 AM EDT Ordered by an unspecified provider. us Generic Provider IMG LEGACY PROCEDURES Edited Re sult - Final documented in this encounter Visit Diagnoses Not on filedocumented in this encounter Care Teams Consulting Services Project Manager Relationship Specialty Start Date End Date Latesha Lang APRN [address] [place] [address] PCP - General Family Medicine 01/18/15 Audrey Farooq MD [address] [place], [place] [id number] Physician Ophthalmology 03/13/18 02/27/24 Katlin Rodriguez APRN [address] [address] Well Drill Operator 03/13/18 02/27/24 Jorge Abreu MD [address] [place] [address] Physician Urology 03/13/18 02/27/24 Donato Hale MD [address] [place] [address] Atlassian Administrator Internal Medicine 03/13/18 11/15/22 Zack Santiago MD [address] [employer] [address] [place] [phone] Internal Medicine 11/24/21 11/15/22 Zack Santiago MD [address] [employer] [address] [place] [phone] Internal Medicine 11/24/21 02/27/24 Donato Hale MD [address] [employer] [address] [place] [address] Atlassian Administrator Internal Medicine 11/16/22 documented as of this encounter
--- OUTSIDE RECORDS SUMMARY | 2025-02-04 16:57 | XMS_ITS | Clinical Summary ---
Author Organization [facility] Address [address] [place] [address] Phone Care Team Providers Care Electrical Prospector Name Role Phone Latesha Lang APRN Primary [...] Coronary atherosclerosis 11/10/201402/2022 Dysmetabolic syndrome 11/10/20142021 Immunizations Immunization Administration Dates Next Due DTaP 5 01/10/2014 [...] A1C 11/15/2022 08/15/2022, 11/25 Influenza Vaccine (#1) 2025 , 03/28/2021, 03/05/2021, Additional history exists Pneumococcal Vaccine: 50+ Years Completed 01/18/2016, 07/24/2013, 03/09/2010 Pneumococcal Vaccine: Peds (0 to 5 Years) and At-Risk Patients (6 to 49 Years) Discontinued 01/18/2016, 07/24/2013, 03/09/2010 Hepatitis B Vaccine Aged Out No longe r eligible based on patient's age to complete this topic Insurance Medicare Medicare Care Teams Electrical Prospector Relationship Specialty Start Date End Date Latesha Lang APRN [address] [place] [address] PCP - General Family Medicine 10/04/21
--- OUTSIDE RECORDS SUMMARY | 2025-02-04 16:57 | XMS_ITS | Encounter Summary ---
Author Organization [facility] Address [address] [place] [address] Care Team Providers Care Stereotype Caster Name Role Phone LangWiltonbruno RUBIO Primary Care Provider Audrey Farooq MD Unavailable Katlin Rodriguez APRN Unavailable [phone] Jorge Abreu MD Unavailable [phone] Donato Hale MD Unavailable [phone] Zack Santiago MD Unavailable [phone] Zack Santiago MD Unavailable [phone] Donato Hale MD Unavailable Encounter Details Date Type Department Care Team (Late st Contact Info) Description 11/20/2018 Scanned Document [facility] [id number] [place] [address] Cardiology, Scan Social History Tobacco Use [...] Info) Description 02/10/2025 10:30 AM EDT Appointment [facility] [address] [place] [phone] Latesha Lang APRN [address]44 [facility], [place] [id number] documented as of this encounter Visit Diagnoses Not on filedocumented in this encounter Care Teams Stereotype Caster Relationship Specialty Start Date End Date Latesha Lang APRN [address] [facility] [place] [address] PCP - General Family Medicine 01/18/15 Audrey Farooq MD [address] [facility] [place] [address] Physician Ophthalmology 03/13/18 02/27/24 Katlin Rodriguez APRN [address] [address] R D Intern 03/13/18 02/27/24 Jorge Abreu MD [address] [place] [address] Physician Urology 03/13/18 02/27/24 Donato Hale MD [address] [place] [address] Software Programmer Internal Medicine 03/13/18 11/15/22 Zack Santiago MD [address] [place] [address] Internal Medicine 11/24/21 11/15/22 Zack Santiago MD 100 [facility] [address] [place] [address] Internal Medicine 11/24/21 02/27/24 Donato Hale MD 100 [facility] [address] [place] [address] Software Programmer Internal Medicine 11/16/22 documented as of this encounter
--- OUTSIDE RECORDS SUMMARY | 2025-02-04 16:57 | XMS_ITS | Clinical Summary ---
Author Organization [facility] Address [address] [place] [address] Care Team Providers Care Sound Engineering Technician Name Role Phone Latesha Lang EVP CHIEF EXPLORATION OFFICER Primary Care Provider [phone] Allergies Active Allergy Reactions Criticality Noted Date Comments Casein Nausea And Vomiting Low 08/08/2019 Gluten Diarrhea Low 06/07/2020 Lactase Diarrhea 06/07/2020 Metformin 12/04/2024 Sugar low Medications clopidogreL (PLAVIX) 75 mg tablet Take 1 tablet (75 mg total) by mouth 1 (one) time each day. 12/04/19 09 Active Lactobacillus acidophilus (PROBIOTIC ACIDOPHILUS ORAL) Take by mouth 1 (one) time each day. Active OneTouch UltraSoft 2 Lancet 30 gauge misc 3 (three) times a day. 03/31/20 24 Active levothyroxine (SYNTHROID, LEVOTHROID) 25 mcg tablet Take 1 tablet (25 mcg total) by mouth 1 (one) time each day in the morning. on an empty stomach. 11/16/19 24 Active hydroCHLOROthi azide (MICROZIDE) 12.5 mg capsule Take 2 capsules (25 mg total) by mouth 1 (one) time each day. Active fenofibric acid (TRILIPIX) 135 mg capsule Take 1 capsule (135 mg total) by mouth daily. 12/12/19 09 Active OneTouch Ultra Test test strip USE TO TEST THREE TIMES DAILY 03/31/20 24 Active rosuvastatin (CRESTOR) 20 mg tablet TAKE ONE TABLET BY MOUTH EVERY DAY 90 tablet 3 12/02/19 25 Active doxazosin (Cardura) 1 mg tablet Take 1 tablet (1 mg total) by mouth at bedtime. 30 tablet 11 12/16/19 25 026 Active UNABLE TO FIND Prevagen Activ e netarsudiL-lat anoprost (Rocklatan) 0.02-0.005 % drops Administer into affected eye(s) 1 (one) time each day. Active olmesartan (Benicar) 40 mg tablet Take 1 tablet (40 mg total) by mouth 1 (one) time each day. 90 each 3 01/17/20 25 026 Active amLODIPine (NORVASC) 5 mg tablet TAKE ONE TABLET BY MOUTH TWICE A DAY 180 tablet 3 01/29/20 25 Active lisinopril (PRINIVIL,ZEST RIL) 40 mg tablet Take 1 tablet (40 mg total) by mouth 1 (one) time each day. 90 each 3 04/23/20 24 025 Discontinued amLODIPine (NORVASC) 5 mg tablet Take 1 tablet (5 mg total) by mouth 2 (two) times a day. Changed per grocery deliverer 01/14/20 24 025 Discontinued Active Problems Problem Noted Date Diagnosed Date Hypertension 07/21/2024 Chest pain 03/04/2024 Familial hypercholesterolemia 07/05/2017 Encounters Date Type Department Care Team Description 01/16/2025 11:15 AM EDT Office Visit [facility] [address] [phone] Donato Hale MD 12/16/2024 Telephone [facility] [address] [address] Lakshmi Angel MA 12/05/2024 2:15 PM EDT Ancillary Procedure [facility] [address] [place] [phone] Armando Hensley RCS Primary hypertension; Mixed hyperlipidemia; Coronary artery disease involving [place] coronary artery of [place] heart without angina pectoris; S/P CABG (coronary artery bypass graft); Mild cardiomegaly 12/04/2024 12:30 PM EDT Office Visit [facility] [address] [place] [address] Callie Drake NP Primary hypertension (Primary Dx); Mixed hyperlipidemia; Coronary artery disease involving [place] coronary artery of [place] heart without angina pectoris; S/P CABG (coronary artery bypass graft); Mild cardiomegaly 11/20/2024 7:42 AM EDT - 11/20/2024 10:27 AM EDT Emergency [facility] Emergency [address] [place] [address] Mike King MD Viral URI (Primary Dx) Discharge Disposition: Home or Self Care from Last 3 Months Immunizations Name Administration Dates Next Due Moderna [...] <70 DX:H yperlipidemia LDL goal <70 Diabetes (CMS/HCC V24, CMS/HCC V28) DX:Diabetes (HCC) Shingles DX:Shingles History of nuclear stress test [...] Information Value Date Recorded Sex Assigned at Male 11/20/2024 8:02 AM EDT Legal Sex Female 3:48 PM EST Gender Identity Female 12/05/2024 2:35 PM EDT Sexual Orientation Choose not to disclose 2024 8:02 AM EDT Obstetrics History Last Filed Vital Signs Vital Sign Reading Time Taken Comments Blood Pressure 170/90 01/16/2025 11:34 AM EDT Pulse 48 01/16/2025 11:34 AM EDT Temperature 36.5 C (97.7 F) 11/20/2024 9:45 AM EDT Respiratory Rate 16 11/20/2024 9:45 AM EDT Oxygen Saturation 99% 01/16/2025 11:34 AM EDT Inhaled Oxygen Concentration - - Weight 49.9 kg (110 lb 0.2 oz) 12/05/2024 2:34 P M EDT Height 152.4 cm (5') 12/05/2024 2:34 PM EDT Body Mass Index 21.48 12/05/2024 2:34 PM EDT Plan of Treatment Upcoming Encounters Date Type Department Care Team (Late st Contact Info) Description 10/16/2025 10:30 AM EDT Office Visit [facility] - [place] [address] [place] [phone] Donato Hale MD [address] [place] [address] Health Maintenance Due Date Last Done Comments Diabetes: Annual Foot Exam 1952 Diabetes: Annual Retina Eye Exam 1950 Zoster Vaccines (1 of 2) 1992 RSV Immunization Adult Patients (1 - 1-dose 75+ series) 2017 Falls Risk Assessment 04/16/2020 Medicare Annual Wellness Visit 04/16/2020 Osteoporosis Screening (Bone Density Screening) 04/16/2020 Social Influencers of Health Screening 04/16/2020 Depression Screening 05/28/2024 COVID-19 Vaccine ( season) 2025 09/21/2021, 04/29/2021, 07/06/2020, Additional history exists Influenza Vaccine (#1) 2025 , 03/27/2023, 03/23/2022, Additional history exists Diabetes: Blood Sugar Control Test (HGBA1C) 04/29/2025 10/28/2024, 02/28/2024, 03/19/2018 Diabetes: Annual GFR (Glomerular Filtration Rate) 11/20/2025 11/20/2024, 05/06/2024, 03/04/2024, Additional history exists Hypertension/CHF/CAD Annual BMP Blood Test 11/20/2025 11/20/2024, 05/06/2024, 03/04/2024, Additional history exists Diabetes: Annual Urine Albumin-Creatinine Ratio (uACR) 01/01/2026 01/01/2025, 02/29/2024, 02/28/2024, Additional history exists Cholesterol Screening (Lipid Panel) 10/08/2028 10/09/2023, 10/09/2023, 10/09/2023, Additional history exists DTaP,Tdap,and Td Vaccines (3 - Td or Tdap) 03/25/2032 03/25/2022, 01/10/2014 Pneumococcal Vaccine: 50+ Years Completed 01/18/2016, 07/24/2013, 03/09/2010 HIB Vaccines Aged Out No longer eligi [...] age to complete this topic Meningococcal B Vaccine Aged Out No l onger eligible based on patient's age to complete this topic RSV Immunization Patients Under 20 months Aged Out No longer eligible based on patient's age to complete this topic Varicella Vaccines Aged Out No longer eligible based on patient's age to complete this topic Procedures Procedure Name Priority Date/Time Associated Diagnosis Comments TRANSTHORACIC ECHOCARDIOGRAM (TTE) COMPLETE Routine 12/05/2024 3:07 PM EDT Primary hypertension Mixed hyperlipidemia Coronary artery disease involving [place] coronary artery of [place] heart without angina pectoris S/P CABG (coronary artery bypass graft) Mild cardiomegaly ECG 12-LEAD Routine 12/04/2024 12:44 PM EDT Primary hypertension Mixed hyperlipidemia Coronary artery disease involving [place] coronary artery of [place] heart without angina pectoris S/P CABG (coronary artery bypass graft) XR CHEST 1 VIEW STAT 11/20/2024 8:56 AM EDT CBC WITH AUTO DIFFERENTIAL STAT 11/20/2024 8:40 AM EDT CBC AND DIFFERENTIAL STAT 11/20/2024 8:40 AM EDT COMPREHENSIVE METABOLIC PANEL STAT 11/20/2024 8:40 AM EDT [id number], RSV, FLU A AND B QUALITATIVE RT-PCR, INTERNAL LAB STAT 11/20/2024 8:11 AM EDT HM URINE ALBUMIN CREATININE RATIO Routine 02/29/2024 LIPID PANEL Routine 10/09/2023 HEMOGLOBIN A1C Routine 03/19/2018 from Last 3 Months or Most Recently Relevant to Health Maintenance Results * TRANSTHORACIC ECHOCARDIOGRAM (TTE) COMPLETE (12/05/2024 3:07 PM EDT) BSA 1.45 m2 CV PACS Anatomical Region Laterality Modality Ultrasound us Callie H Uva EPIC WILLOW ANALYST CV ECHO PROCEDURES Final Result * ECG 12 lead (12/04/2024 12:44 PM EDT) Narrative VidalCallieDELORES - 12/04/2024 12:44 PM EDT Sinus bradycardia at 53 bpm. Poor R wave progression. Low voltage in precordial leads. Callie Mccarthy Vidal EPIC WILLOW ANALYST ECG ORDERABLES Final Result * XR Chest 1 View (11/20/2024 8:56 AM EDT) Anatomical Region Laterality Modality Body Radiographic Casie ging 11/20/2024 9:48 AM EDT Impressions 11/20/2024 10:01 AM EDT Cardiomegaly. No acute cardiopulmonary disease. No interval change from 03/03/2024. Report reviewed and signed by : Dr. Ole Jacobs MD on 11/20/2024 10:01 AM. Workstation Name - [id number] -------- FINAL REPORT -------- Dictated By: Ole Jacobs Dictated Date: 11/20/2024 09:48 ET Assigned Physician: Ole Jacobs Reviewed and Electronically Signed By: Ole Jacobs Signed Date: 11/20/2024 10:01 ET Workstation ID: [id number] Transcribed By: Self Edit Transcribed Date: 11/20/2024 09:48 ET Narrative 11/20/2024 10:01 AM EDT 11/20/2024. EXAM: Portable chest, AP upright view. HISTORY: Cough. Also history of coronary artery bypass graft with median sternotomy in September 2010. COMPARISON: 03/03/2024. FINDINGS: Sternal wires again noted. Both lungs are again clear and well aerated. No pulmonary congestion, pleural effusion, pneumothorax and adenopathy are noted. The heart is again enlarged over left ventricular region, probably secondary to a long-standing hypertensive heart disease The bones are again unremarkable. Procedure Note Ole Jacobs-MD Rosa - 11/20/2024 11/20/2024. EXAM: Portable chest, AP upright view. HISTORY: Cough. Also history of coronary artery bypass graft with mediansternotomy in September 2010. COMPARISON: 03/03/2024. FINDINGS: Sternal wires again noted. Both lungs are again clear and well aerated. No pulmonary congestion, pleural effusion, pneumothorax and adenopathy arenoted. The heart is again enlarged over left ventricular region, probablysecondary to a long-standing hypertensive heart disease The bones are again unremarkable. IMPRESSION: Cardiomegaly. No acute cardiopulmonary disease. No interval change from 03/03/2024. Report reviewed and signed by : Dr. Ole Jacobs MD on 11/20/2024 10:01AM. Workstation Name - [id number] -------- FINAL REPORT -------- Dictated By: Ole Jacobs Dictated Date: 11/20/2024 09:48 ET Assigned Physician: Ole Jacobs Reviewed and Electronically Signed By: Ole Jacobs Signed Date: 11/20/2024 10:01 ET Workstation ID: [id number] Transcribed By: Self Edit Transcribed Date: 11/20/2024 09:48 ET us Mike King MD IMG XR PROCEDURES Final Result * (ABNORMAL) CBC auto differential (11/20/2024 8:40 AM EDT) WBC 3.6(L) 4.0 - 10.5 K/mcL LAB HEMETOLOGY METHOD 11/20/2024 8:47 AM EDT [facility] RBC 4.66 4.20 - 6.00 M/mcL LAB HEMETOLOGY METHOD 11/20/2024 8:47 AM EDT [facility] Hemoglobin 13.8 12.5 - 18.0 g/dL LAB HEMETOLOGY METHOD 11/20/2024 8:47 AM EDT [facility] Hematocrit 41.4 37.0 - 54.0 % LAB HEMETOLOGY METHOD 11/20/2024 8:47 AM EDT [facility] MCV 88.8 78.0 - 100.0 FL LAB HEMETOLOGY METHOD 11/20/2024 8:47 AM [facility] MCH 29.6 25.0 - 33.0 pcg LAB HEMETOLOGY METHOD 11/20/2024 8:47 AM [facility] MCHC 33.3 32.0 - 36.0 g/dL LAB HEMETOLOGY METHOD 11/20/2024 8:47 AM [facility] RDW 13.9 12.1 - 17.7 % LAB HEMETOLOGY METHOD 11/20/2024 8:47 AM [facility] Platelets 210 150 - 450 K/mcL LAB HEMETOLOGY METHOD 11/20/2024 8:47 AM [facility] MPV 12.1(H) 7.4 - 11.4 FL LAB HEMETOLOGY METHOD 11/20/2024 8:47 AM [facility] Neutrophils Relative 54.8 44.0 - 74.0 % LAB HEMETOLOGY METHOD 11/20/2024 8:47 AM [facility] Lymphocytes Relative 34.8 20.0 - 48.0 % LAB HEMETOLOGY METHOD 11/20/2024 8:47 AM [facility] Monocytes Relative 7.0 2.0 - 12.0 % LAB HEMETOLOGY METHOD 11/20/2024 8:47 AM [facility] Eosinophils Relative 2.8 0.0 - 6.0 % LAB HEMETOLOGY METHOD 11/20/2024 8:47 AM [facility] Basophils Relative 0.3 0.0 - 2.0 % LAB HEMETOLOGY METHOD 11/20/2024 8:47 AM [facility] Neutrophils Absolute 1.95 1.80 - 7.80 K/mcL LAB HEMETOLOGY METHOD 11/20/2024 8:47 AM [facility] Lymphocytes Absolute 1.24 1.00 - 3.20 K/mcL LAB HEMETOLOGY METHOD 11/20/2024 8:47 AM EDT [facility] Monocytes Absolute 0.25 0.00 - 0.80 K/mcL LAB HEMETOLOGY METHOD 11/20/2024 8:47 AM EDT [facility] Eosinophils Absolute 0.10 0.00 - 0.50 K/mcL LAB HEMETOLOGY METHOD 11/20/2024 8:47 AM EDT [facility] Basophils Absolute <0.03 0.00 - 0.20 K/mcL LAB HEMETOLOGY METHOD 11/20/2024 8:47 AM EDT [facility] Blood Venous blood specimen / Unknown Venipuncture / Unknown 11/20/2024 8:40 AM EDT 11/20/2024 8:43 AM EDT us Mike King MD LAB BLOOD ORDERABLES Final Res ult [facility] [address] [place] [address], [place] [phone] * (ABNORMAL) Comprehensive Metabolic Panel (CMP) (11/20/2024 8:40 AM EDT) Sodium 140 135 - 145 mmol/L LAB CHEMISTRY METHOD 11/20/2024 9:25 AM EDT [facility] Potassium 4.8 3.5 - 5.1 mmol/L LAB CHEMISTRY METHOD 11/20/2024 9:25 AM EDT [facility] Comment:Moderate Hemolysis m ay affect test result(s). Chloride 103 98 - 107 mmol/L LAB CHEMISTRY METHOD 11/20/2024 9:25 AM EDT [facility] CO2 31 24 - 32 mmol/L LAB CHEMISTRY METHOD 11/20/2024 9:25 AM [facility] Anion Gap 6 5 - 14 LAB CHEMISTRY METHOD 11/20/2024 9:25 AM [facility] Glucose 109 70 - 199 mg/dL LAB CHEMISTRY METHOD 11/20/2024 9:25 AM [facility] BUN 23(H) 7 - 20 mg/dL LAB CHEMISTRY METHOD 11/20/2024 9:25 AM [facility] Creatinine 0.92 0.50 - 1.30 mg/dL LAB CHEMISTRY METHOD 11/20/2024 9:25 AM [facility] eGFR 84 >=60 mL/min/1. 73m2 LAB CHEMISTRY METHOD 11/20/2024 9:25 AM [facility] Comment: For non-binary individuals or unknown sex, the equation for female sex is used to calculate the estimated glomerular filtration rate (eGFR). Calculation based on the Chronic Kidney Disease Epidemiology Collaboration (CKD- EPI) equation refit without adjustment for race. BUN/Creatinine Ratio 25.0(H) 12.0 - 20.0 LAB CHEMISTRY METHOD 11/20/2024 9:25 AM [facility] Calcium 9.0 8.4 - 10.2 mg/dL LAB CHEMISTRY METHOD 11/20/2024 9:25 AM [facility] AST (SGOT) 39 5 - 40 unit/L LAB CHEMISTRY METHOD 11/20/2024 9:25 AM [facility] Comment:Moderate Hemolysis m ay affect test result(s). ALT (SGPT) 15 7 - 52 unit/L LAB CHEMISTRY METHOD 11/20/2024 9:25 AM [facility] Alkaline Phosphatase 41 34 - 104 unit/L LAB CHEMISTRY METHOD 11/20/2024 9:25 AM [facility] Total Protein 6.9 6.4 - 8.5 g/dL LAB CHEMISTRY METHOD 11/20/2024 9:25 AM EDT [facility] Albumin 4.5 3.5 - 5.0 g/dL LAB CHEMISTRY METHOD 11/20/2024 9:25 AM EDT [facility] Total Bilirubin 0.7 0.3 - 1.0 mg/dL LAB CHEMISTRY METHOD 11/20/2024 9:25 AM EDT [facility] Blood Venous blood specimen / Unknown Venipuncture / Unknown 11/20/2024 8:40 AM EDT 11/20/2024 8:43 AM EDT us Mike King MD LAB BLOOD ORDERABLES Final Res ult [facility] [address] [place] [address], [place] [phone] * [id number], RSV, Influenza A and B qualitative RT-PCR (11/20/2024 8:11 AM EDT) Influenza A PCR Negative Negative LAB MOLECULAR DIAGNOSTICS METHOD 11/20/2024 8:57 AM EDT [facility] Influenza B PCR Negative Negative LAB MOLECULAR DIAGNOSTICS METHOD 11/20/2024 8:57 AM EDT [facility] RSV PCR Negative Negative LAB MOLECULAR DIAGNOSTICS METHOD 11/20/2024 8:57 AM EDT [facility] SARS COV-2 Negative Negative LAB MOLECULAR DIAGNOSTICS METHOD 11/20/2024 8:57 AM EDT [facility] Swab Nasopharyngeal structure / Unknown Non-blood Collection / Unknown 11/20/2024 8:11 AM EDT 11/20/2024 8:16 AM EDT [facility] - 11/20/2024 8:57 AM EDT This test has been authorized by FDA under an emergency used authorization (EUA). This EUA will cease to be effective when declared by [facility] that circumstances exist to justify its termination under section 564(bB)(2) of the Federal Food, Drug, and Cosmetic Act (The Act) 21 U.S.C. 360bbb 30,or when the EUA is revoked under section 564 (g) of the Act. Testing was performed using the [employer] Xpert Xpress SARS-CoV2/FLU/RSV test. Negative results do not preclude SARS COV-2 test infection and should not be used as a sole basis for treatment or other patient management decisions. Negative results must be combined with clinical observation, patient history, and epidemiological information. Mike King MD LAB MICROBIOLOGY - GENERAL ORD ERABLES Final Result [facility] [address] [place] [address], * Lipid panel (10/09/2023) Triglycerides 112 <=150 [...] Most Recently Relevant to Health Maintenance Insurance [place] [address] Care Teams Sound Engineering Technician Relationship Specialty Start Date End Date Latesha Lang FNP [address] [place] [address] PCP - General Family Medicine 01/13/15
--- OUTSIDE RECORDS SUMMARY | 2025-02-04 16:57 | XMS_ITS | Encounter Summary ---
Author Organization [facility] Address [address] [place] [address] Care Team Providers Care Head Operator Sulfide Name Role Phone Precious Latesha RUBIO Primary Care Provider Audrey Farooq MD Unavailable Katlin Rodriguez APRN Unavailable [phone] Jorge Abreu MD Unavailable Donato Hale MD Unavailable Zack Santiago MD Unavailable [phone] Zack Santiago MD Unavailable [phone] Donato Hale MD Unavailable Encounter Details Date Type Department Care Team (Late st Contact Info) Description 10/15/2017 Scanned Document [address] [phone] Provider, Generic Social History Tobacco [...] Appointment [facility] Rad[facility] [place] [phone] Latesha Lang APRN [address] [facility], [place] [id number] documented as of this encounter Visit Diagnoses Not on filedocumented in this encounter Care Teams Head Operator Sulfide Relationship Specialty Start Date End Date Latesha Lang APRN [address] [place] [address] PCP - General Family Medicine 01/18/15 Audrey Farooq MD [address] [place] [address] Physician Ophthalmology 03/13/18 02/27/24 Katlin Rodriguez APRN [address] [address] Permit Agent 03/13/18 02/27/24 Jorge Abreu MD [address] [place] [address] Physician Urology 03/13/18 02/27/24 Donato Hale MD [address] [place] [address] Sponsorship Coordinator Internal Medicine 03/13/18 11/15/22 Zack Santiago MD [address] [place] [address] Internal Medicine 11/24/21 11/15/22 Zack Santiago MD 100 [facility] [address] [place] [address] Internal Medicine 11/24/21 02/27/24 Donato Hale MD [address] [facility] [address] [place] [address] Sponsorship Coordinator Internal Medicine 11/16/22 documented as of this encounter
--- OUTSIDE RECORDS SUMMARY | 2025-02-04 16:57 | XMS_ITS | Encounter Summary ---
Author Organization [facility] Address [address] [place] [address] Care Team Providers Care Oil Refinery Process Technician Name Role Phone Precious Latesha RUBIO Primary Care Provider Audrey Farooq MD Unavailable Katlin Rodriguez APRN Unavailable [phone] Jorge Abreu MD Unavailable Donato Hale MD Unavailable Zack Santiago MD Unavailable [phone] Zack Snatiago MD Unavailable [phone] Donato Hale MD Unavailable [phone] Encounter Details Date Type Department Care Team (Late st Contact Info) Description 03/25/2022 Scanned Document [address] [address] Provider, Generic Social History Tobacco [...] Info) Description 02/10/2025 10:30 AM EDT Appointment [facility] Radiology [address] [place] [phone] Latesha aLng APRN [address] [facility], [place] [id number] documented as of this encounter Visit Diagnoses Not on filedocumented in this encounter Care Teams Oil Refinery Process Technician Relationship Specialty Start Date End Date Latesha Lang APRN [address] [place] [address] PCP - General Family Medicine 01/18/15 Audrey Farooq MD [address] [place] [address] Physician Ophthalmology 03/13/18 02/27/24 Katlin oRdriguez APRN [address] [address] Winter Intern 03/13/18 02/27/24 Jorge Abreu MD [address] [place] [address] Physician Urology 03/13/18 02/27/24 Donato Hale MD [address] [place] [address] Contamination Consultant Internal Medicine 03/13/18 11/15/22 Zack Santiago MD [address] [facility] [address] [place] [address] Internal Medicine 11/24/21 11/15/22 Zack Santiago MD [address] [facility] [address] [place] [address] Internal Medicine 11/24/21 02/27/24 Donato Hale MD [address] [place] [address] Contamination Consultant Internal Medicine 11/16/22 documented as of this encounter
--- OUTSIDE RECORDS SUMMARY | 2025-02-04 16:57 | XMS_ITS | Encounter Summary ---
Author Organization [facility] Address [address] [place] [address] Care Team Providers Care Pointer Machine Operator Name Role Phone Precious Latesha RUBIO Primary Care Provider Audrey Farooq MD Unavailable [phone] Katlin Rodriguez APRN Unavailable [phone] Jorge Aberu MD Unavailable [phone] Donato Hale MD Unavailable [phone] Zack Santiago MD Unavailable [phone] Zack Santiago MD Unavailable [phone] Donato Hale MD Unavailable Encounter Details Date Type Department Care Team (Late st Contact Info) Description 02/14/2017 Scanned Document [address] [address] Provider, Generic Social History Tobacco [...] Info) Description 02/10/2025 10:30 AM EDT Appointment [facility] Radiology [address] [facility] [place] [phone] Latesha Lang APRN [address] [facility], [place] [phone] documented as of this encounter Procedures Procedure Name Priority Date/Time Associated Diagnosis Comments LAB RESULT 02/14/2017 documented in this encounter Results * LAB RESULT (02/14/2017) Narrative 02/14/2017 Ordered by an unspecified provider. us Generic Provider HX AMB PROCEDURES Final Result documented in this encounter Visit Diagnoses Not on filedocumented in this encounter Care Teams Pointer Machine Operator Relationship Specialty Start Date End Date Latesha Lang APRN [address] [facility] [place] [address] PCP - General Family Medicine 01/18/15 Audrey Farooq MD [address] [facility] [place] [address] Physician Ophthalmology 03/13/18 02/27/24 Katlin Rodriguez APRN 100 [facility] [address] [place] [address] Tin Pot Operator 03/13/18 02/27/24 Jorge Abreu MD [address] [place] [address] [address] [place] [address] Physician Urology 03/13/18 02/27/24 Donato Hale MD [address] [place] [address] [address] [place] [address] Ship Rigger Internal Medicine 03/13/18 11/15/22 Zack Santiago MD [address] [employer] [facility] [address] [place] [phone] Internal Medicine 11/24/21 11/15/22 Zack Santiago MD [address] [facility] [address] [place] [phone] Internal Medicine 11/24/21 02/27/24 Donato Hale MD [address] [facility] [address] [place] [address] Ship Rigger Internal Medicine 11/16/22 documented as of this encounter
--- OUTSIDE RECORDS SUMMARY | 2025-02-04 16:57 | XMS_ITS | Encounter Summary ---
Author Organization [facility] Address [address] [place] [address] Care Team Providers Care Vehicle Fuel Systems Converter Name Role Phone Precious Latesha RUBIO Primary Care Provider [phone] Audrey Farooq MD Unavailable Katlin Rodriguez APRN Unavailable [phone] Jorge Abreu MD Unavailable Donato Hale MD Unavailable [phone] Zack Santiago MD Unavailable [phone] Zack Santiago MD Unavailable [phone] Donato Hale MD Unavailable [phone] Encounter Details Date Type Department Care Team (Late st Contact Info) Description 09/01/2016 Scanned Document [address] [address] Provider, Generic Social History Tobacco [...] Info) Description 02/10/2025 10:30 AM EDT Appointment [facility] [place] [id number] Latesha Lang APRN [address] [place] [address] [place], [place] [id number] documented as of this encounter Procedures Procedure Name Priority Date/Time Associated Diagnosis Comments CT SCAN EXTERNAL RESULT 09/01/2016 IMAGING BREAST/BX/MAMMO 09/01/2016 documented in this encounter Results * CT SCAN EXTERNAL RESULT (09/01/2016) Anatomical Region Laterality Modality Computed Tomogra phy Narrative 09/04/2016 6:36 AM EDT Ordered by an unspecified provider. us Generic Provider IMG CT ORDERABLES Edited Result - Final * IMAGING BREAST/BX/MAMMO (09/01/2016) Anatomical Region Laterality Modality Other Narrative 09/04/2016 6:35 AM EDT Ordered by an unspecified provider. us Generic Provider IMG LEGACY PROCEDURES Edited Re sult - Final documented in this encounter Visit Diagnoses Not on filedocumented in this encounter Care Teams Vehicle Fuel Systems Converter Relationship Specialty Start Date End Date Latesha Lang APRN [address] [place] [address] PCP - General Family Medicine 01/18/15 Audrey Farooq MD [address] [place] [address] Physician Ophthalmology 03/13/18 02/27/24 Katlin Rodriguez APRN [address] [facility] [address] [place] [address] Malt Roaster 03/13/18 02/27/24 Jorge Abreu MD [address] [place], [place] [address] [address] [place] [address] Physician Urology 03/13/18 02/27/24 Donato Hale MD [address] [place], [place] [address] [address] [place] [address] Front Desk Administrator Internal Medicine 03/13/18 11/15/22 Zack Santiago MD [address] [place] [address] Internal Medicine 11/24/21 11/15/22 Zack Santiago MD [address] [place] [address] Internal Medicine 11/24/21 02/27/24 Donato Hale MD [address] [place] [address] Front Desk Administrator Internal Medicine 11/16/22 documented as of this encounter
--- OUTSIDE RECORDS SUMMARY | 2025-02-04 16:57 | XMS_ITS | Encounter Summary ---
Author Organization [facility] Address [address] [place] [address] Care Team Providers Care Heat Treat Furnace Operator Name Role Phone Precious Latesha RUBIO Primary Care Provider Audrey Farooq MD Unavailable [phone] Katlin Rodriguez APRN Unavailable [phone] Jorge Abreu MD Unavailable Donato Hale MD Unavailable Zack Santiago MD Unavailable [phone] Zack Santiago MD Unavailable [phone] Donato Hale MD Unavailable Encounter Details Date Type Department Care Team (Late st Contact Info) Description 03/01/2017 Scanned Document [address] [address] Provider, Generic Social History Tobacco [...] AM EDT Appointment [facility] [place] [phone] Latesha Lang APRN [address] [facility], [place] [id number] documented as of this encounter Procedures Procedure Name Priority Date/Time Associated Diagnosis Comments LAB RESULT 03/20/2017 documented in this encounter Results * LAB RESULT (03/20/2017) Narrative 03/20/2017 Ordered by an unspecified provider. us Generic Provider HX AMB PROCEDURES Edited Result - Final documented in this encounter Visit Diagnoses Not on filedocumented in this encounter Care Teams Heat Treat Furnace Operator Relationship Specialty Start Date End Date Latesha Lang APRN [address] [facility], [place] [id number] PCP - General Family Medicine 01/18/15 Audrey Farooq MD [address] [facility] [place] [address] Physician Ophthalmology 03/13/18 02/27/24 Katlin Rodriguez APRN [address] [facility] [address] [place] [address] Auto Damage Adjuster 03/13/18 02/27/24 Jorge Abreu MD [address] [place] [address] [address] [place] [address] Physician Urology 03/13/18 02/27/24 Donato Hale MD [address] [place] [address] [address] [place] [address] Program Management Specialist Internal Medicine 03/13/18 11/15/22 Zack Santiago MD [address] [place] [address] Internal Medicine 11/24/21 11/15/22 Zack Santiago MD [address] [place] [address] Internal Medicine 11/24/21 02/27/24 Donato Hale MD [address] [place] [address] Program Management Specialist Internal Medicine 11/16/22 documented as of this encounter
--- OUTSIDE RECORDS SUMMARY | 2025-02-04 16:57 | XMS_ITS | Encounter Summary ---
Author Organization [facility] Address [address] [place] [address] Care Team Providers Care Cleaner Touch Up Worker Name Role Phone PreciousWiltonbruno RUBIO Primary Care Provider Audrey Farooq MD Unavailable [phone] Katlin Rodriguez APRN Unavailable [phone] Jorge Abreu MD Unavailable Donato Hale MD Unavailable [phone] Zack Santiago MD Unavailable [phone] Zack Santiago MD Unavailable [phone] Donato Hale MD Unavailable Encounter Details Date Type Department Care Team (Late st Contact Info) Description 08/30/2021 Scanned Document [address] [facility] [place] [address] Provider, Generic Social History Tobacco Use Types [...] Appointment [facility] [place] [phone] Latesha Lang APRN [address] [facility] [place] [address] documented as of this encounter Procedures Procedure Name Priority Date/Time Associated Diagnosis Comments XRAY EXTERNAL RESULT 08/30/2021 documented in this encounter Results * XRAY EXTERNAL RESULT (08/30/2021) Anatomical Region Laterality Modality Computed Radiogr aphy 08/30/2021 Narrative 08/30/2021 Ordered by an unspecified provider. us Generic Provider IMG DIAGNOSTIC IMAGING ORDERABL ES Edited Result - Final documented in this encounter Visit Diagnoses Not on filedocumented in this encounter Care Teams Cleaner Touch Up Worker Relationship Specialty Start Date End Date Latesha Lang APRN [address] [facility] [address] PCP - General Family Medicine 01/18/15 Audrey Farooq MD [address] [place] [address] Physician Ophthalmology 03/13/18 02/27/24 Katlin Rodriguez APRN 100 [facility] [address] [place] [address] Ore Smelter 03/13/18 02/27/24 Jorge Abreu MD [address] [place] [address] [address] [place] [address] Physician Urology 03/13/18 02/27/24 Donato Hale MD [address] [place] [address] Hadoop Developer Internal Medicine 03/13/18 11/15/22 Zack Santiago MD [address] [place] [address] Internal Medicine 11/24/21 11/15/22 Zack Santiago MD [address] [place] [address] Internal Medicine 11/24/21 02/27/24 Donato Hale MD [address] [place] [address] Hadoop Developer Internal Medicine 11/16/22 documented as of this encounter
--- OUTSIDE RECORDS SUMMARY | 2025-02-04 16:57 | XMS_ITS ---
Author Name [facility] Organization Unknown Results Test Name/Text Value Interpretation Date Range Source Creat Ur-mCnc 122.0 mg/dL Normal 5 20 - 275 [facility] Microalbumin Ur-mCnc 7.7 mg/dL Normal 5 - [facility] Albumin/Creat Ur 63.0 mg/g creat Above high normal 5 - 30 [facility] eGFRcr SerPlBld CKD-EPI 2020 84.0 mL/min/1.73m2 5 - [facility] Chloride SerPl-sCnc 103.0 mmol/L 5 98 - 107 [facility] Sodium SerPl-sCnc 140.0 mmol/L 5 135 - 145 [facility] Anion Gap SerPl Calc-sCnc 6.0 5 5 - 14 [facility] Calcium SerPl-mCnc 9.0 mg/dL 5 8.4 - 10.2 [facility] ALT SerPl-cCnc 15.0 unit/L 5 7 - 52 [facility] Creat SerPl-mCnc 0.92 mg/dL 5 0.5 - 1.3 [facility] BUN SerPl-mCnc 23.0 mg/dL Above high normal 11/21/19 2 5 7 - 20 [facility] AST SerPl-cCnc 39.0 unit/L 5 5 - 40 [facility] BUN/Creat SerPl 25.0 Above high normal 02 5 12 - 20 [facility] Albumin SerPl-mCnc 4.5 g/dL 5 3.5 - 5 [facility] Prot SerPl-mCnc 6.9 g/dL 5 6.4 - 8.5 [facility] Glucose SerPl-mCnc 109.0 mg/dL 5 70 - 199 [facility] Potassium SerPl-sCnc 4.8 mmol/L 5 3.5 - 5.1 [facility] Bilirub SerPl-mCnc 0.7 mg/dL 5 0.3 - 1 [facility] CO2 SerPl-sCnc 31.0 mmol/L 5 24 - 32 [facility] ALP SerPl-cCnc 41.0 unit/L 5 34 - 104 [facility] Neutrophils # Bld Auto 1.95 K/mcL 5 1.8 - 7.8 [facility] Monocytes # Bld Auto 0.25 K/mcL 5 0 - 0.8 [facility] Hct VFr Bld Auto 41.4 % 5 37 - 54 [facility] Monocytes NFr Bld Auto 7.0 % 5 2 - 12 [facility] Neutrophils NFr Bld Auto 54.8 % 5 44 - 74 [facility] Lymphocytes # Bld Auto 1.24 K/mcL 5 1 - 3.2 [facility] Eosinophil NFr Bld Auto 2.8 % 5 0 - 6 [facility] MCH RBC Qn Auto 29.6 pcg 5 25 - 33 [facility] Hgb Bld-mCnc 13.8 g/dL 5 12.5 - 18 [facility] RBC # Bld Auto 4.66 M/mcL 5 4.2 - 6 [facility] Basophils # Bld Auto <0.03 K/mcL 5 0 - 0.2 [facility] Lymphocytes NFr Bld Auto 34.8 % 5 20 - 48 [facility] PMV Bld Auto 12.1 FL Above high normal 5 7.4 - 11.4 [facility] MCHC RBC Auto-EntMCnc 33.3 g/dL 5 32 - 36 [facility] RDW RBC Auto 13.9 % 5 12.1 - 17.7 [facility] Basophils NFr Bld Auto 0.3 % 5 0 - 2 [facility] Platelet # Bld Auto 210.0 K/mcL 5 150 - 450 [facility] Eosinophil # Bld Auto 0.1 K/mcL 5 0 - 0.5 [facility] WBC # Bld Auto 3.6 K/mcL Below low normal 5 4 - 10.5 [facility] RBC Auto 88.8 FL 5 78 - 100 [facility] Nph Ql NAV+probe Negative 5 [facility] RSV RNA Resp Ql NAV+probe Negative 5 [facility] RNA Nph Ql NAV+probe Negative 5 [facility] SARS-CoV-2 RNA Resp Ql NAV+probe Negative 5 [facility] Monocytes # Bld Auto 291.0 cells/uL Normal 5 200 - 950 [facility] MCH RBC Qn Auto 29.5 pg Normal 5 27 - 33 [facility] Monocytes NFr Bld Auto 8.3 % Normal 5 [facility] MCHC RBC Auto-EntMCnc 32.2 g/dL Normal 5 32 - 36 [facility] Platelet # Bld Auto 160.0 Thousand/uL Normal 5 140 - 400 [facility] Hgb Bld-mCnc 13.5 g/dL Normal 5 11.7 - 15.5 [facility] WBC # Bld Auto 3.5 Thousand/uL Below low normal 5 3.8 - 10.8 [facility] RBC Auto 91.7 fL Normal 5 80 - 100 [facility] Neutrophils # Bld Auto 1484.0 cells/uL Below low normal 5 1500 - 7800 [facility] Neutrophils NFr Bld Auto 42.4 % Normal 5 [facility] Basophils # Bld Auto 39.0 cells/uL Normal 5 0 - 200 [facility] Eosinophil NFr Bld Auto 4.9 % Normal 5 [facility] PMV Bld Brian-Reza 12.0 fL Normal 5 7.5 - 12.5 [facility] Lymphocytes # Bld Auto 1516.0 cells/uL Normal 5 850 - 3900 [facility] Basophils NFr Bld Auto 1.1 % Normal 5 [facility] Hct VFr Bld Auto 41.9 % Normal 5 35 - 45 [facility] Lymphocytes NFr Bld Auto 43.3 % Normal 5 [facility] RDW RBC Auto 13.5 % Normal 5 11 - 15 [facility] RBC # Bld Auto 4.57 Million/uL Normal 5 3.8 - 5.1 [facility] Eosinophil # Bld Auto 172.0 cells/uL Normal 5 15 - 500 [facility] Trigl SerPl-mCnc 110.0 mg/dL Normal 5 - 150 [facility] HDLc SerPl-mCnc 50.0 mg/dL Normal 5 - [facility] Cholest/HDLc SerPl 2.7 (calc) Normal 5 - 5 [facility] NonHDLc SerPl-mCnc 85.0 mg/dL (calc) Normal 10/26 5 - 130 [facility] LDLc SerPl Calc-mCnc 65.0 mg/dL (calc) Normal 5 [facility] Cholest SerPl-mCnc 135.0 mg/dL Normal 5 - 200 [facility] ALP SerPl-cCnc 47.0 U/L Normal 5 37 - 153 [facility] Sodium SerPl-sCnc 142.0 mmol/L Normal 5 135 - 146 [facility] Chloride SerPl-sCnc 104.0 mmol/L Normal 5 98 - 110 [facility] CO2 SerPl-sCnc 29.0 mmol/L Normal 5 20 - 32 [facility] eGFRcr SerPlBld CKD-EPI 2020 54.0 mL/min/1.73m2 Below low normal 5 - [facility] Bilirub SerPl-mCnc 0.6 mg/dL Normal 5 0.2 - 1.2 [facility] Glucose SerPl-mCnc 99.0 mg/dL Normal 5 65 - 99 [facility] Albumin/Glob SerPl 2.1 (calc) Normal 5 1 - 2.5 [facility] BUN SerPl-mCnc 27.0 mg/dL Above high normal 11/06/19 2 5 7 - 25 [facility] Albumin SerPl-mCnc 4.2 g/dL Normal 5 3.6 - 5.1 [facility] Potassium SerPl-sCnc 3.8 mmol/L Normal 5 3.5 - 5.3 [facility] Creat SerPl-mCnc 1.04 mg/dL Above high normal 5 0.6 - 0.95 [facility] ALT SerPl-cCnc 17.0 U/L Normal 5 6 - 29 [facility] Prot SerPl-mCnc 6.2 g/dL Normal 5 6.1 - 8.1 [facility] BUN/Creat SerPl 26.0 (calc) Above high normal 02 5 6 - 22 [facility] Globulin Ser Calc-mCnc 2.0 g/dL (calc) Normal 5 1.9 - 3.7 [facility] Calcium SerPl-mCnc 9.4 mg/dL Normal 5 8.6 - 10.4 [facility] AST SerPl-cCnc 24.0 U/L Normal 5 10 - 35 [facility] TSH SerPl-aCnc 1.98 mIU/L Normal 5 0.4 - 4.5 [facility] GLUCOSE BLDC GLUCOMTR MCNC 146.0 mg/dL Normal 4 70 - 199 [facility] GLUCOSE BLDC GLUCOMTR MCNC 122.0 mg/dL Normal 4 70 - 199 [facility] MCV RBC AUTO 87.3 fL Normal 4 78 - 100 [facility] WBC NO. BLD AUTO 4.1 K/uL Normal 4 4 - 10.5 [facility] MCH RBC QN AUTO 29.7 pg Normal 4 25 - 33 [facility] PMV BLD AUTO 9.7 fL Normal 4 7.4 - 11.4 [facility] HCT VFR BLD AUTO 38.0 % Normal 4 37 - 47 [facility] HGB BLD MCNC 12.9 g/dL Normal 4 12.5 - 16 [facility] PLATELET NO. BLD AUTO 164.0 K/uL Normal 4 150 - 450 [facility] RBC NO. BLD AUTO 4.35 M/uL Normal 4 4.2 - 5.4 [facility] MCHC RBC AUTO MCNC 34.0 g/dL Normal 4 32 - 36 [facility] RDW RBC AUTO RTO 14.2 % Normal 4 12.1 - 16.2 [facility] GLUCOSE SERPL MCNC 114.0 mg/dL Normal 4 70 - 199 [facility] Glomerular filtration rate/1.73 sq M. predicted 74.0 Normal 4 60 - [facility] BUN SERPL MCNC 16.0 mg/dL Normal 4 7 - 17 [facility] ANION GAP SERPL SCNC 8.0 mmol/L Normal 4 5 - 14 [facility] SODIUM SERPL SCNC 140.0 mmol/L Normal 4 135 - 145 [facility] POTASSIUM SERPL SCNC 3.5 mmol/L Normal 4 3.5 - 5.1 [facility] CREAT SERPL MCNC 0.8 mg/dL Normal 4 0.5 - 1 [facility] HCO3 SER SCNC 27.0 mmol/L Normal 4 24 - 32 [facility] CHLORIDE SERPL SCNC 105.0 mmol/L Normal 4 98 - 107 [facility] CALCIUM SERPL MCNC 8.8 mg/dL Normal 4 8.4 - 10.2 [facility] GLUCOSE BLDC GLUCOMTR MCNC 121.0 mg/dL Normal 4 70 - 199 [facility] Troponin I SerPl HS-mCnc 12.0 ng/L Normal 4 0 - 14 [facility] GLUCOSE BLDC GLUCOMTR MCNC 117.0 mg/dL Normal 4 70 - [facility] CHLORIDE SERPL SCNC 102.0 mmol/L Normal 4 98 - 107 [facility] Glomerular filtration rate/1.73 sq M. predicted 45.0 Below low normal 4 60 - [facility] CREAT SERPL MCNC 1.2 mg/dL Above high normal 4 0.5 - 1 [facility] BUN SERPL MCNC 25.0 mg/dL Above high normal 03/03/20 2 4 7 - 17 [facility] POTASSIUM SERPL SCNC 3.7 mmol/L Normal 4 3.5 - 5.1 [facility] GLUCOSE SERPL MCNC 150.0 mg/dL Normal 4 70 - 199 [facility] SODIUM SERPL SCNC 139.0 mmol/L Normal 4 135 - 145 [facility] CALCIUM SERPL MCNC 10.0 mg/dL Normal 4 8.4 - 10.2 [facility] ANION GAP SERPL SCNC 8.0 mmol/L Normal 4 5 - 14 [facility] HCO3 SER SCNC 29.0 mmol/L Normal 4 24 - 32 [facility] Troponin I SerPl HS-mCnc 12.0 ng/L Normal 4 0 - 14 [facility] HGB BLD MCNC 13.9 g/dL Normal 4 12.5 - 16 [facility] RDW RBC AUTO RTO 14.0 % Normal 4 12.1 - 16.2 [facility] MCH RBC QN AUTO 29.3 pg Normal 4 25 - 33 [facility] MCHC RBC AUTO MCNC 32.9 g/dL Normal 4 32 - 36 [facility] EOSINOPHIL NFR BLD AUTO 1.3 % Normal 4 0 - 6 [facility] LYMPHOCYTES NO. BLD AUTO 1.8 K/uL Normal 4 1 - 3.2 [facility] EOSINOPHIL NO. BLD AUTO 0.1 K/uL Normal 4 0 - 0.5 [facility] IMMATURE GRANULOCYTE, ABSOLUTE 0.01 k/uL Normal 4 - 0.1 [facility] MONOCYTES NO. BLD AUTO 0.4 K/uL Normal 4 0 - 0.8 [facility] HCT VFR BLD AUTO 42.3 % Normal 4 37 - 47 [facility] PLATELET NO. BLD AUTO 224.0 K/uL Normal 4 150 - 450 [facility] MCV RBC AUTO 89.1 fL Normal 4 78 - 100 [facility] NEUTROPHILS NO. BLD AUTO 2.4 K/uL Normal 4 1.8 - 7.8 [facility] WBC NO. BLD AUTO 4.6 K/uL Normal 4 4 - 10.5 [facility] BASOPHILS IN BLOOD BY AUTOMATED COUNT 0.0 K/uL Normal 4 0 - 0.2 [facility] BASOPHILS NFR BLD AUTO 0.4 % Normal 4 0 - 2 [facility] IMMATURE GRANULOCYTE, PERCENT 0.2 % Normal 4 0 - 1 [facility] LYMPHOCYTES NFR BLD AUTO 38.4 % Normal 4 20 - 48 [facility] MONOCYTES NFR BLD AUTO 8.8 % Normal 4 2 - 12 [facility] PMV BLD AUTO 11.4 fL Normal 4 7.4 - 11.4 [facility] NEUTROPHILS NFR BLD AUTO 50.9 % Normal 4 44 - 74 [facility] RBC NO. BLD AUTO 4.75 M/uL Normal 4 4.2 - 5.4 [facility] HDLC SERPL-MCNC 53.0 mg/dL Normal 4 33 - 92 [facility] LDLc SerPl Calc-mCnc 70.0 mg/dL Normal 4 50 - 130 [facility] TRIGL SERPL-MCNC 112.0 mg/dL Normal 4 - 150 [facility] CHOLEST SERPL-MCNC 145.0 mg/dL Normal 4 0 - 200 [facility] NEUTROPHILS NO. BLD AUTO 2.2 K/uL Normal 4 1.8 - 7.8 [facility] IMMATURE GRANULOCYTE, PERCENT 0.2 % Normal 4 0 - 1 [facility] LYMPHOCYTES NO. BLD AUTO 1.6 K/uL Normal 4 1 - 3.2 [facility] PLATELET NO. BLD AUTO 183.0 K/uL Normal 4 150 - 450 [facility] LYMPHOCYTES NFR BLD AUTO 36.4 % Normal 4 20 - 48 [facility] EOSINOPHIL NO. BLD AUTO 0.2 K/uL Normal 4 0 - 0.5 [facility] IMMATURE GRANULOCYTE, ABSOLUTE 0.01 k/uL Normal 4 - 0.1 [facility] PMV BLD AUTO 10.9 fL Normal 4 7.4 - 11.4 [facility] BASOPHILS IN BLOOD BY AUTOMATED COUNT 0.0 K/uL Normal 4 0 - 0.2 [facility] RDW RBC AUTO RTO 14.0 % Normal 4 12.1 - 16.2 [facility] NEUTROPHILS NFR BLD AUTO 50.7 % Normal 4 44 - 74 [facility] RBC NO. BLD AUTO 4.75 M/uL Normal 4 4.2 - 5.4 [facility] NUCLEATED RBC 0.0 % Normal 4 0 - 1 [facility] HCT VFR BLD AUTO 41.9 % Normal 4 37 - 47 [facility] WBC NO. BLD AUTO 4.4 K/uL Normal 4 4 - 10.5 [facility] BASOPHILS NFR BLD AUTO 0.7 % Normal 4 0 - 2 [facility] HGB BLD MCNC 13.8 g/dL Normal 4 12.5 - 16 [facility] EOSINOPHIL NFR BLD AUTO 4.5 % Normal 4 0 - 6 [facility] MCV RBC AUTO 88.2 fL Normal 4 78 - 100 [facility] MCH RBC QN AUTO 29.1 pg Normal 4 25 - 33 [facility] MONOCYTES NO. BLD AUTO 0.3 K/uL Normal 4 0 - 0.8 [facility] MCHC RBC AUTO MCNC 32.9 g/dL Normal 4 32 - 36 [facility] MONOCYTES NFR BLD AUTO 7.5 % Normal 4 2 - 12 [facility] GLUCOSE P FAST SERPL MCNC 117.0 mg/dL Above high normal 4 70 - 99 [facility] POTASSIUM SERPL SCNC 4.2 mmol/L Normal 4 3.5 - 5.1 [facility] CHLORIDE SERPL SCNC 102.0 mmol/L Normal 4 98 - 107 [facility] HCO3 SER SCNC 30.0 mmol/L Normal 4 24 - 32 [facility] ANION GAP SERPL SCNC 6.0 mmol/L Normal 4 5 - 14 [facility] PROT SERPL MCNC 6.7 g/dL Normal 4 6.4 - 8.5 [facility] CALCIUM SERPL MCNC 9.8 mg/dL Normal 4 8.4 - 10.2 [facility] ALBUMIN SERPL BCG MCNC 4.3 g/dL Normal 4 3.5 - 5 [facility] SODIUM SERPL SCNC 138.0 mmol/L Normal 4 135 - 145 [facility] BUN SERPL MCNC 21.0 mg/dL Above high normal 10/09/19 2 4 7 - 17 [facility] Glomerular filtration rate/1.73 sq M. predicted 57.0 Below low normal 4 60 - [facility] ALP SERPL-CCNC 40.0 U/L Normal 4 34 - 104 [facility] AST SERPL CCNC 24.0 U/L Normal 4 5 - 40 [facility] BILIRUB SERPL MCNC 0.6 mg/dL Normal 4 0.3 - 1 [facility] ALT SERPL CCNC 16.0 U/L Normal 4 7 - 52 [facility] CREAT SERPL MCNC 1.0 mg/dL Normal 4 0.5 - 1 [facility] TSH SerPl DL<=0.005 mIU/L-aCnc 3.84 uIU/mL Normal 4 0.45 - 5.33 [facility] GLUCOSE BLDC GLUCOMTR MCNC 104.0 mg/dL Normal 4 70 - 199 [facility] RSV RNA Nph Ql NAV+non-probe NEGATIVE Abnormal 4 [facility] FLUBV RNA Nph Ql NAV+non-probe NEGATIVE Abnormal 4 [facility] FLUAV RNA Nph Ql NAV+non-probe NEGATIVE Abnormal 4 [facility] Service mt XXX-Imp Cepheid GeneXpert (RT-PCR) [facility] Normal 4 [facility] SPECIMEN SOURCE XXX NASOPHARYNGEAL Normal 4 [facility] History of Medication Use Medication Directions Dispensed Refills Start Date End Date Status cephalexin (KEFLEX) 500 MG capsule Take 1 capsule (500 mg total) by mouth 3 (three) times a day. 5 active doxazosin (Cardura) 1 mg tablet Take 1 tablet (1 mg total) by mouth at bedtime. 5 active doxazosin (CARDURA) 1 MG tablet Take 1 tablet (1 mg total) by mouth. 5 active rosuvastatin (CRESTOR) 20 mg tablet TAKE ONE TABLET BY MOUTH EVERY DAY 5 active Choline Fenofibrate (Fenofibric Acid) 135 MG Capsule Delayed Release TAKE ONE CAPSULE BY MOUTH EVERY DAY 5 active metFORMIN (GLUCOPHAGE-XR) 500 MG 24 hr tablet TAKE ONE TABLET BY MOUTH EVERY MORNING WITH BREAKFAST. SWALLOW WHOLE. DO NOT CRUSH, BREAK OR CHEW 4 active lisinopril (PRINIVIL,ZESTRIL) 40 mg tablet Take 1 tablet (40 mg total) by mouth 1 (one) time each day. 4 active lisinopril (PRINIVIL,ZESTRIL) 40 mg tablet Take 1 tablet (40 mg total) by mouth 1 (one) time each day. 4 active OneTouch Ultra Test test strip USE TO TEST THREE TIMES DAILY 4 active OneTouch UltraSoft 2 Lancet 30 gauge misc 3 (three) times a day. 4 active amLODIPine (NORVASC) 5 mg tablet Take 1 tablet (5 mg total) by mouth 2 (two) times a day. Changed per treasurer 4 active amLODIPine (NORVASC) 5 mg tablet Take 1 tablet (5 mg total) by mouth 2 (two) times a day. Changed per treasurer 4 active hydroCHLOROthiazide (HYDRODIURIL) 25 MG tablet TAKE ONE TABLET BY MOUTH EVERY DAY 4 active levothyroxine (SYNTHROID, LEVOTHROID) 25 mcg tablet Take 1 tablet (25 mcg total) by mouth 1 (one) time each day in the morning. on an empty stomach. 4 active levothyroxine (SYNTHROID, LEVOTHROID) 25 mcg tablet Take 1 tablet (25 mcg total) by mouth 1 (one) time each day in the morning. on an empty stomach. 4 active Synthroid 25 MCG tablet TAKE ONE TABLET BY MOUTH EVERY MORNING 4 active metFORMIN XR (GLUCOPHAGE-XR) 500 mg 24 hr tablet Take 1 tablet (500 mg total) by mouth daily. 4 12/05/19 25 aborted metFORMIN XR (GLUCOPHAGE-XR) 500 mg 24 hr tablet Take 1 tablet (500 mg total) by mouth daily. 4 active predniSONE (DELTASONE) tablet 20 mg Take 2 tablets (40 mg total) by mouth daily for 4 days. 4 08/17/19 24 active lisinopril (PRINIVIL,ZESTRIL) tablet 40 mg TAKE ONE TABLET BY MOUTH EVERY DAY 3 active rosuvastatin (CRESTOR) tablet 20 mg TAKE ONE TABLET BY MOUTH EVERY DAY 3 active fluticasone (FloNASE) 50 mcg/spray nasal spray USE 1 SPRAY IN EACH NOSTRIL TWO TIMES A DAY 3 active metFORMIN (GLUCOPHAGE-XR) 500 MG 24 hr tablet TAKE ONE TABLET BY MOUTH EVERY DAY IN THE MORNING WITH BREAKFAST 2 active fluticasone (FloNASE) 50 mcg/spray nasal spray 1 spray into each nostril 2 (two) times a day. 2 active rosuvastatin (CRESTOR) 20 mg tablet Take 1 tablet (20 mg total) by mouth 1 (one) time each day. 2 active rosuvastatin (CRESTOR) 20 MG tablet 2 active fenofibric acid (TRILIPIX) 135 mg capsule Take 1 capsule (135 mg total) by mouth daily. 9 active fenofibric acid (TRILIPIX) 135 mg capsule Take 1 capsule (135 mg total) by mouth daily. 9 active clopidogreL (PLAVIX) 75 mg tablet Take 1 tablet (75 mg total) by mouth 1 (one) time each day. 9 active clopidogreL (PLAVIX) 75 mg tablet Take 1 tablet (75 mg total) by mouth 1 (one) time each day. 9 active rosuvastatin completed clopidogrel completed Synthroid completed doxazosin completed amlodipine besylate (bulk) completed hydrochloric acid (bulk) completed lisinopril completed fenofibric acid complete d amLODIPine (NORVASC) 10 MG tablet Take 1 tablet (10 mg total) by mouth daily. active B Complex Vitamins (VITAMIN-B COMPLEX PO) 1 tablet daily. active Biotin 5 MG Cap Take 1 capsule by mouth. active fenofibrate (TRICOR) 145 MG tablet Take 145 mg by mouth daily. active hydroCHLOROthiazide (MICROZIDE) 12.5 mg capsule Take 2 capsules (25 mg total) by mouth 1 (one) time each day. active hydroCHLOROthiazide (MICROZIDE) 12.5 mg capsule Take 2 capsules (25 mg total) by mouth 1 (one) time each day. active hydroCHLOROthiazide (MICROZIDE) 12.5 MG capsule Take 12.5 mg by mouth daily. active hydroCHLOROthiazide (MICROZIDE) 12.5 MG capsule Take 1 capsule (12.5 mg total) by mouth daily. active levothyroxine (SYNTHROID, LEVOXYL) tablet 25 mcg Take 1 tablet (25 mcg total) by mouth every morning on an empty stomach. active lisinopril (PRINIVIL,ZeSTRIL) 40 MG tablet Take 1 tablet (40 mg total) by mouth daily. active zinc gluconate 50 MG tablet Take 50 mg by mouth. active Allergies Allergen Reaction Severity Comment Documented Date Source Statu s METFORMIN Sugar low 12/04/2024 [facility] active GLUTEN DIARRHEA 06/07/2020 [facility] active LACTASE DIARRHEA 06/07/2020 [facility] active TILACTASE DIARRHEA 06/07/2020 [facility] active CASEIN NAUSEA AND VOMITING 08/08/2019 [facility] MILK PROTEIN GI INTOLERANCE/NAUSEA/ VOMITING 08/08/2019 [facility] active NKA 01/13/2015 [facility] active DAIRY DIARRHEA [facility] GLUTEN MEAL DIARRHEA [facility] Problems Problem Status Onset Date Problem Type Date of Resolution Source Familial hypercholesterolemia active 8 [facility] 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-12-28 3 [facility]Act [facility] Dysmetabolic syndrome X active 2014-10-26 6 [facility]Act [facility] Hypertension active 2024-06-29 4 [facility]Act [facility] Acquired hypothyroidism active 2019-10-28 3 ProblemAct [facility] Memory loss active 6 ProblemAct [facility] Stage 2 chronic kidney disease active 2021-09-25 0 ProblemAct [facility] Type 2 diabetes mellitus with kidney complication, without long-term current use of insulin active 2014-10-26 6 ProblemAct [facility] Chest pain active 8 ProblemAct [facility] Female stress incontinence active 2018-04-28 8 ProblemAct [facility] Coronary atherosclerosis active 2014-10 6 ProblemAct [facility] Glaucoma of both eyes active 2015-12-28 3 ProblemAct [facility] S/P CABG x 4 active EncounterDiagnosisAct [facility] Post PTCA active EncounterDiagnosisAct [facility] Hypertension active ProblemAct [facility] MG Viral URI active EncounterDiagnosisAct [facility] Hyperlipidemia, unspecified active EncounterDiagnosisAct [facility] Immunizations Vaccine Date Source Lot Number Status Influenza High-Dose Trivalent,(FLUZONE HIGH-DOSE), Perservative Free IM 0.5 mL 65 years and older 02/28/2024 [facility] [id number] completed Influenza High-Dose Trivalent,(FLUZONE HIGH-DOSE), Perservative Free IM 0.5 mL 65 years and older 02/28/2024 [facility] [id number] completed Influenza, Quadrivalent (FLUARIX, AFLURIA, FLULAVAL, FLUZONE) Preservative Free IM 03/27/2023 [facility] [id number] co mpleted Influenza, Quadrivalent (FLUARIX, AFLURIA, FLULAVAL, FLUZONE) Preservative Free IM 03/27/2023 [facility] [id number] co mpleted Td 03/25/2022 [facility] [id number] completed Td 03/25/2022 [facility] [id number] completed Influenza, Quadrivalent (FLUARIX, AFLURIA, FLULAVAL, FLUZONE) Preservative Free IM 03/23/2022 [facility] [id number] co mpleted Influenza, Quadrivalent (FLUARIX, AFLURIA, FLULAVAL, FLUZONE) Preservative Free IM 03/23/2022 [facility] [id number] co mpleted Covid-19 mRNA Vaccine - Mode rna 0.25 mL Booster 09/21/2021 [facility] [id number] completed Covid-19 mRNA Vaccine - Mode rna 0.25 mL Booster 09/21/2021 [facility] [id number] completed Covid-19 mRNA Vaccine - Mode rna 0.25 mL Booster 09/21/2021 [facility] [id number] completed Covid-19 mRNA Vaccine - Mode rna 0.25 mL Booster 04/29/2021 [facility] [id number] completed Covid-19 mRNA Vaccine - Mode rna 0.25 mL Booster 04/29/2021 [facility] [id number] completed Influenza (AFLURIA/FLUZONE) Inactivated/Split Quadrivalent with Preservative IM 03/28/2021 [facility] completed Influenza (AFLURIA/FLUZONE) Inactivated/Split Quadrivalent with Preservative IM 03/28/2021 [facility] completed Influenza, Quadrivalent (FLUARIX, AFLURIA, FLULAVAL, FLUZONE) Preservative Free IM 03/05/2021 [facility] [id number] co mpleted Influenza, Quadrivalent (FLUARIX, AFLURIA, FLULAVAL, FLUZONE) Preservative Free IM 03/05/2021 [facility] [id number] co mpleted Influenza, Quadrivalent (FLUARIX, AFLURIA, FLULAVAL, FLUZONE) Preservative Free IM 03/05/2021 [facility] [id number] co mpleted Covid-19 mRNA Primary Series Vaccine - Moderna 0.5 mL Full Dose 07/06/2020 [facility] [id number] completed Covid-19 mRNA Primary Series Vaccine - Moderna 0.5 mL Full Dose 07/06/2020 [facility] [id number] completed Covid-19 mRNA Primary Series Vaccine - Moderna 0.5 mL Full Dose 07/06/2020 [facility] [id number] completed Covid-19 mRNA Primary Series Vaccine - Moderna 0.5 mL Full Dose 06/07/2020 [facility] [id number] completed Covid-19 mRNA Primary Series Vaccine - Moderna 0.5 mL Full Dose 06/07/2020 [facility] [id number] completed Influenza, Quadrivalent (FLUARIX, AFLURIA, FLULAVAL, FLUZONE) Preservative Free IM 03/17/2020 [facility] [id number] co mpleted Influenza, Quadrivalent (FLUARIX, AFLURIA, FLULAVAL, FLUZONE) Preservative Free IM 03/17/2020 [facility] [id number] co mpleted Influenza, Quadrivalent (FLUARIX, AFLURIA, FLULAVAL, FLUZONE) Preservative Free IM 03/17/2020 [facility] [id number] co mpleted Influenza Inactivated/Split Preservative Free IM 03/25/2019 [facility] completed Influenza, Unspecified 03/25/2019 [facility] co mpleted Influenza, Unspecified 03/25/2019 [facility] co mpleted Influenza Inactivated/Split Preservative Free IM 03/30/2018 [facility] completed Influenza, Unspecified 03/30/2018 [facility] co mpleted Influenza, Unspecified 03/30/2018 [facility] co mpleted Pneumococcal Conjugate 13-Valent 01/18/2016 [facility] [id number] completed Pneumococcal Conjugate 13-Valent 01/18/2016 [facility] [id number] completed Influenza Inactivated/Split Preservative Free IM 03/16/2015 [facility] [id number] - FLUARIX 0.5 ML SYRINGE completed Influenza Inactivated/Split Preservative Free IM 03/17/2014 [facility] [id number] completed DTaP 5 01/10/2014 [facility] [id number] completed DTaP 5 01/10/2014 [facility] [id number] completed Pneumococcal Polysaccharide 23-Valent 07/24/2013 [facility] completed Pneumococcal Polysaccharide 23-Valent 07/24/2013 [facility] completed Influenza Inactivated/Split Preservative Free IM 03/12/2013 [facility] [id number] completed Pneumococcal Polysaccharide 23-[facility]ent 03/09/2010 [facility] Pneumococcal Polysaccharide 23-[facility] 03/09/2010 [facility] completed Encounters Encounter Type Encounter Reason Primary Diagnosis Location Date Ambulatory Follow-up [place] [facility] [place] Ambulatory 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 [facility] 01/01/2025 Ambulatory [facility] 12/25/2024 Ambulatory Essential (primary) hypertension Essential (primary) hypertension [facility] 12/05/2024 Ambulatory post hospital follow up/URI Essential (primary) hypertension [facility] 12/04/2024 Emergency Sore throat cough chills body aches Acute upper respiratory infection, unspecified [facility] 11/20/2024 Ambulatory 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 [facility] 10/28/2024 Inpatient Chest pain, unspecified Chest pain, unspecified [facility] [place]24 Emergency Chest pain, unspecified Chest pain, unspecified [facility] 03/03/2024 Ambulatory Type 2 diabetes mellitus with diabetic chronic kidney disease Type 2 diabetes mellitus with diabetic chronic kidney disease [facility] 02/28/2024 Ambulatory Essential (primary) hypertension Essential (primary) hypertension [facility] 10/09/2023 Emergency Acute upper respiratory infection, unspecified Acute upper respiratory infection, unspecified [facility] 08/12/2023 Ambulatory Encounter for immunization Encounter for immunization [facility] 03/27/2023 Ambulatory Type 2 diabetes mellitus with diabetic chronic kidney disease [facility] 11/16/2022 Ambulatory Type 2 diabetes mellitus with diabetic chronic kidney disease [facility] 08/15/2022 Ambulatory Hypertension secondary to endocrine disorders [facility] 05/25/2022 Ambulatory Hypertension secondary to endocrine disorders [facility] 11/22/2021 Ambulatory Encounter for immunization [facility] 09/21/2021 Ambulatory Type 2 diabetes mellitus without complications [facility] 06/14/2021 Ambulatory Immunizations [facility] 04/29/2021 Care Team Organization Name Specialty Phone Email Start Date End Da [place] [facility] [place]/04/2024 [facility] 12/04/2024 [facility] 11/20/2024 [facility] 11/20/2024 [facility] 10/28/2024 01/30/2025 [facility] 10/07/2024 [facility] 10/07/2024 [facility] 01/202412/09/2024 [facility] 03/04/2024 [facility] 08/12/2023 [facility] 03/30/2023 [facility] 202212/09/2024 [facility] 202211/06/2022 [facility] Latesha Lang [facility] 11/22/2021 01/30/2025 [facility] 04/29/2021 11/22/2021
--- OUTSIDE RECORDS SUMMARY | 2025-02-04 16:57 | XMS_ITS | Encounter Summary ---
Author Organization [facility]ly [facility] Address [address] [place] [address] Care Team Providers Care Store Stock Associate Name Role Phone Precious Latesha RUBIO Primary Care Provider Audrey Farooq MD Unavailable [phone] Katlin Rodriguez APRN Unavailable [phone] Jorge Abreu MD Unavailable Donato Hale MD Unavailable Zack Santiago MD Unavailable [phone] Zack Santiago MD Unavailable [phone] Donato Hale MD Unavailable [phone] Encounter Details Date Type Department Care Team (Late st Contact Info) Description 03/27/2016 Scanned Document [address] [address] Provider, Generic Social History Tobacco [...] Info) Description 02/10/2025 10:30 AM EDT Appointment [facility] Radiology [facility]A [facility] [place] [address] Latesha Lang APRN [address] [facility], [place] [id number] documented as of this encounter Visit Diagnoses Not on filedocumented in this encounter Care Teams Store Stock Associate Relationship Specialty Start Date End Date Latesha Lang APRN [address] [place] [address] PCP - General Family Medicine 01/18/15 Audrey aFrooq MD [address] [place] [address] Physician Ophthalmology 03/13/18 02/27/24 Katlin Rodriguez APRN [address] [address] Shade Maker 03/13/18 02/27/24 Jorge Abreu MD [address] [place] [address] Physician Urology 03/13/18 02/27/24 Donato Hale MD [address] [place] [address] Electrical Engineering Draftsperson Internal Medicine 03/13/18 11/15/22 Zack Santiago MD [address] [place] [address] Internal Medicine 11/24/21 11/15/22 Zack Santiago MD 100 [facility] [address] [place] [address] Internal Medicine 11/24/21 02/27/24 Donato Hale MD 100 [facility] [address] [place] [address] Electrical Engineering Draftsperson Internal Medicine 11/16/22 documented as of this encounter
--- OUTSIDE RECORDS SUMMARY | 2025-02-04 16:57 | XMS_ITS | Encounter Summary ---
Author Organization [facility] Address [address] [place] [address] Care Team Providers Care Vp Of Customer Experience Strategy Name Role Phone Latesha Lang APRN Primary Care Provider Audrey Farooq MD Unavailable Katlin Rodriguez APRN Unavailable Jorge Abreu MD Unavailable Donato Hale MD Unavailable [phone] Zack Santiago MD Unavailable [phone] Zack Santiago MD Unavailable [phone] Donato Hale MD Unavailable [phone] Encounter Details Date Type Department Care Team (Late st Contact Info) Description 08/11/2019 Scanned Document [facility] [address] [place] [address] Latesha Lang APRN [address] [place] [address] Social History Tobacco Use Types [...] EDT Appointment [facility] Radiology [address] [place] [address], [place] [address] Latesha Lang APRN 12[address] [facility], [place] [phone] documented as of this encounter Visit Diagnoses Not on filedocumented in this encounter Care Teams Vp Of Customer Experience Strategy Relationship Specialty Start Date End Date Latesha Lang APRN 1244 [facility], [place] [id number] PCP - General Family Medicine 01/18/15 Audrey Farooq MD 1244 [place] [address] Physician Ophthalmology 03/13/18 02/27/24 Katlin Rodriguez APRN 100 [facility] [address] [place] [address] Creative Writing Teacher 03/13/18 02/27/24 Jorge Abreu MD 360 [facility] [address] [place] [address] Physician Urology 03/13/18 02/27/24 Donato Hale MD 360 [facility] [address] [place] [address] Foil Cutter Internal Medicine 03/13/18 11/15/22 Zack Santiago MD 100 [facility] [address] [place] [address] Internal Medicine 11/24/21 11/15/22 Zack Santiago MD 100 [facility] 200 [place] [address] Internal Medicine 11/24/21 02/27/24 Donato Hale MD 100 [facility] 200 [place] [address] Foil Cutter Internal Medicine 11/16/22 documented as of this encounter
--- OUTSIDE RECORDS SUMMARY | 2025-02-04 16:57 | XMS_ITS | Encounter Summary ---
Author Organization [facility] Address [address] [place] [address] Care Team Providers Care Film Washer Name Role Phone Precious Latesha RUBIO Primary Care Provider [phone] Audrey Farooq MD Unavailable Katlin Rodriguez APRN Unavailable [phone] Jorge Abreu MD Unavailable Donato Hale MD Unavailable [phone] Zack Santiago MD Unavailable [phone] Zack Santiago MD Unavailable [phone] Donato Hale MD Unavailable Encounter Details Date Type Department Care Team (Late st Contact Info) Description 03/06/2017 Scanned Document [address] [address] Provider, Generic Social History Tobacco [...] [facility] 7A [place] [address] Latesha Lang APRN 1244 [facility], [place] [id number] documented as of this encounter Visit Diagnoses Not on filedocumented in this encounter Care Teams Film Washer Relationship Specialty Start Date End Date Latesha Lang APRN 1244 [place] [address] PCP - General Family Medicine 01/18/15 Audrey Farooq MD 1244 [place] [address] Physician Ophthalmology 03/13/18 02/27/24 Katlin Rodriguez APRN [address] [address] Home Health Provider 03/13/18 02/27/24 Jorge Abreu MD [address] [place] [address] Physician Urology 03/13/18 02/27/24 Donato Hale MD [address] [place] [address] Drawer In Internal Medicine 03/13/18 11/15/22 Zack Santiago MD [address] [place] [address] Internal Medicine 11/24/21 11/15/22 Zack Sanitago MD 100 [facility] [address] [place] [address] Internal Medicine 11/24/21 02/27/24 Donato Hale MD 100 [facility] [address] [place] [address] Drawer In Internal Medicine 11/16/22 documented as of this encounter
--- OUTSIDE RECORDS SUMMARY | 2025-02-04 16:57 | XMS_ITS | Encounter Summary ---
Author Organization [facility] Address [address] [place] [address] Care Team Providers Care Contact Center Consultant Name Role Phone Precious Latesha RUBIO Primary Care Provider Audrey Farooq MD Unavailable [phone] Katlin Rodriguez APRN Unavailable [phone] Jorge Abreu MD Unavailable Donato Hale MD Unavailable Zack Santiago MD Unavailable [phone] Zack Santiago MD Unavailable [phone] Donato Hale MD Unavailable Encounter Details Date Type Department Care Team (Late st Contact Info) Description 07/14/2016 Scanned Document [address] [address] Provider, Generic Social History Tobacco [...] Info) Description 02/10/2025 10:30 AM EDT Appointment [facility] Radiology 7A [facility] [place] [address] Latesha Lang APRN 1244 [facility], [place] [phone] documented as of this encounter Visit Diagnoses Not on filedocumented in this encounter Care Teams Contact Center Consultant Relationship Specialty Start Date End Date Latesha Lang APRN 1244 [facility] [place] [place] [address] PCP - General Family Medicine 01/18/15 Audrey Farooq MD 1244 [facility] [place] [place] [address] Physician Ophthalmology 03/13/18 02/27/24 Katlin Rodriguez APRN [address] [address] Directory Compiler 03/13/18 02/27/24 Jorge Abreu MD [address] [place] [address] Physician Urology 03/13/18 02/27/24 Donato Hale MD [address] [place] [address] Supervisor Screen Printing Internal Medicine 03/13/18 11/15/22 Zack Santiago MD [address] [place] [address] Internal Medicine 11/24/21 11/15/22 Zack Santiago MD 100 [facility] 200 [place] [address] Internal Medicine 11/24/21 02/27/24 Donato Hale MD 100 [facility] [address] [place] [address] Supervisor Screen Printing Internal Medicine 11/16/22 documented as of this encounter
--- OUTSIDE RECORDS SUMMARY | 2025-02-04 16:57 | XMS_ITS | Encounter Summary ---
Author Organization [facility] Address [address] [place] [address] Care Team Providers Care Double Spindle Shaper Operator Name Role Phone Precious Latesha RUBIO Primary Care Provider Audrey Farooq MD Unavailable Katlin Rodriguez APRN Unavailable [phone] Jorge Abreu MD Unavailable Donato Hale MD Unavailable Zack Santiago MD Unavailable [phone] Zack Santiago MD Unavailable [phone] Donato Hale MD Unavailable [phone] Encounter Details Date Type Department Care Team (Late st Contact Info) Description 03/12/2018 Scanned Document [address] [address] Provider, Generic Social History Tobacco [...] Description 02/10/2025 10:30 AM EDT Appointment [facility] Radiology 7A [place] [address] Latesha Lang APRN 1244 [facility], [place] [id number] documented as of this encounter Visit Diagnoses Not on filedocumented in this encounter Care Teams Double Spindle Shaper Operator Relationship Specialty Start Date End Date Latesha Lang APRN [address] [place] [address] PCP - General Family Medicine 01/18/15 Audrey Farooq MD 1244 [place] [address] Physician Ophthalmology 03/13/18 02/27/24 Katlin Rodriguez APRN [address] [address] Lab Instructor 03/13/18 02/27/24 Jorge Abreu MD [address] [place] [address] Physician Urology 03/13/18 02/27/24 Donato Hale MD [address] [place] [address] Audiovisual Lead Technician Internal Medicine 03/13/18 11/15/22 Zack Santiago MD [address] [place] [address] Internal Medicine 11/24/21 11/15/22 Zack Santiago MD 100 [facility] 200 [place] [address] Internal Medicine 11/24/21 02/27/24 Donato Hale MD 100 [facility] [address] [place] [address] Audiovisual Lead Technician Internal Medicine 11/16/22 documented as of this encounter
--- OUTSIDE RECORDS SUMMARY | 2025-02-04 16:57 | XMS_ITS | Encounter Summary ---
Author Organization [facility] Address [address] [place] [address] Care Team Providers Care Plant Control Aide Name Role Phone Latesha Lang APRN Primary Care Provider [phone] Audrey Farooq MD Unavailable Katlin Rodriguez APRN Unavailable Jorge Abreu MD Unavailable Donato Hale MD Unavailable [phone] Zack Santiago MD Unavailable [phone] Zack Santiago MD Unavailable [phone] Donato Hale MD Unavailable [phone] Encounter Details Date Type Department Care Team (Late st Contact Info) Description 07/04/2018 Scanned Document [facility] [address] [place] [address] Latesha Lang APRN [address] [place] [address] Social History Tobacco Use Types [...] Info) Description 02/10/2025 10:30 AM EDT Appointment [facility] Radiology [address] [place] [address], [place] [phone] Latesha Lang, JOANNE [address] [facility], [place] [phone] documented as of this encounter Visit Diagnoses Not on filedocumented in this encounter Care Teams Plant Control Aide Relationship Specialty Start Date End Date Latesha Lang APRN [address] [facility], [place] [phone] PCP - General Family Medicine 01/18/15 Audrey Farooq MD 1244 [place] [address] Physician Ophthalmology 03/13/18 02/27/24 Katlin Rodriguez APRN 100 [facility] [address] [place] [address] Customs Investigator 03/13/18 02/27/24 Jorge Abreu MD 360 [facility] [address] [place] [address] Physician Urology 03/13/18 02/27/24 Donato Hale MD 360 [facility] [address] [place] [address] Hand Coper Internal Medicine 03/13/18 11/15/22 Zack Santiago MD 100 [facility] [address] [place] [address] Internal Medicine 11/24/21 11/15/22 Zack Santiago MD 100 [facility] 200 [place] [address] Internal Medicine 11/24/21 02/27/24 Donato Hale MD 100 [facility] Baez [facility] 200 [place] [address] Hand Coper Internal Medicine 11/16/22 documented as of this encounter
--- OUTSIDE RECORDS SUMMARY | 2025-02-04 16:57 | XMS_ITS | Encounter Summary ---
Author Organization [facility] Address [address] [place] [address] Care Team Providers Care Health Care Sanitary Technician Name Role Phone Precious Latesha RUBIO Primary Care Provider [phone] Audrey Farooq MD Unavailable [phone] Katlin Rodriguez APRN Unavailable [phone] Jorge Abreu MD Unavailable Donato Hale MD Unavailable Zack Santiago MD Unavailable [phone] Zack Santiago MD Unavailable [phone] Donato Hale MD Unavailable Encounter Details Date Type Department Care Team (Late st Contact Info) Description 09/19/2018 Scanned Document [address] [address] Provider, Generic Social History Tobacco [...] Info) Description 02/10/2025 10:30 AM EDT Appointment [facility] Radiology [facility]A [facility] [place] [address] Latesha Lang APRN 1244 [facility], [place] [id number] documented as of this encounter Visit Diagnoses Not on filedocumented in this encounter Care Teams Health Care Sanitary Technician Relationship Specialty Start Date End Date Latesha Lang APRN 1244 [place] [address] PCP - General Family Medicine 01/18/15 Audrey Farooq MD 1244 [place] [address] Physician Ophthalmology 03/13/18 02/27/24 Katlin Rodriguez APRN [address] [address] Melt House Drag Operator 03/13/18 02/27/24 Jorge Abreu MD [address] [place] [address] Physician Urology 03/13/18 02/27/24 Donato Hale MD [address] [place] [address] Individual Small Group Instructor Internal Medicine 03/13/18 11/15/22 Zack Santiago MD [address] [place] [address] Internal Medicine 11/24/21 11/15/22 Zack Santiago MD 100 [facility] 200 [place] [address] Internal Medicine 11/24/21 02/27/24 Donato Hale MD 100 [facility] [address] [place] [address] Individual Small Group Instructor Internal Medicine 11/16/22 documented as of this encounter
--- OUTSIDE RECORDS SUMMARY | 2025-02-04 16:57 | XMS_ITS | Encounter Summary ---
Author Organization [facility] Address [address] [place] [address] Care Team Providers Care Polymer Specialist Name Role Phone Precious Latesha RUBIO Primary Care Provider Audrey Farooq MD Unavailable Ktalin Rodriguez APRN Unavailable [phone] Jorge Abreu MD Unavailable Donato Hale MD Unavailable Zack Santiago MD Unavailable [phone] Zack Santiago MD Unavailable [phone] Donato Hale MD Unavailable [phone] Encounter Details Date Type Department Care Team (Late st Contact Info) Description 05/30/2019 Scanned Document [address] [address] Provider, Generic Social History Tobacco [...] Info) Description 02/10/2025 10:30 AM EDT Appointment [facility] Radiology 7A [place] [address] Latesha Lang APRN 1244 [facility], [place] [phone] documented as of this encounter Visit Diagnoses Not on filedocumented in this encounter Care Teams Polymer Specialist Relationship Specialty Start Date End Date Latesha Lang APRN 1244 [facility] [place] [address] PCP - General Family Medicine 01/18/15 Audrey Farooq MD 1244 [facility] [place] [address] Physician Ophthalmology 03/13/18 02/27/24 Katlin Rodriguez APRN [address] [address] [address] 03/13/18 02/27/24 Jorge Abreu MD [address] [place] [address] Physician Urology 03/13/18 02/27/24 Donato Hale MD [address] [place] [address] Professor Of Medicine Internal Medicine 03/13/18 11/15/22 Zack Santiago MD [address] [place] [address] Internal Medicine 11/24/21 11/15/22 Zack Santiago MD 100 [facility] 200 [place] [address] Internal Medicine 11/24/21 02/27/24 Donato Hale MD 100 [facility] [address] [place] [address] Professor Of Medicine Internal Medicine 11/16/22 documented as of this encounter
== END 2025-02-04 14:21 | disposition home or self-care (01) ==
LOC: HO.HKAE 13:51
PROVIDERS: PCP Nurse Practitioner Family; Visit Provider Internal Medicine Hypertension Specialist
DX: I10 Essential (primary) hypertension (principal)
CPT/HCPCS: 99214

== ENCOUNTER → 2025-02-04 13:51 | Outpatient (BNVA) | payer MEDICARE, SELFPAY | PROVIDERS: PCP Nurse Practitioner Family; Visit Provider Internal Medicine Hypertension Specialist | DX: I10 Essential (primary) hypertension (principal); N18.9 Chronic kidney disease, unspecified; E11.9 Type 2 diabetes mellitus without complications | CPT/HCPCS: 99212 ==

== ENCOUNTER 2025-03-18 15:23 | Outpatient (AMB) | payer MEDICARE, SELFPAY ==
[2025-03-18 15:22] VITALS: BP 150/62; PULSE 61; O2SAT 97; BMI 22.1
--- NOTE | 2025-03-18 15:22 | HO.NEPHOV_ITS ---
Vital Signs 03/18/25 15:22 Height 5 ft Weight 113 lb BMI 22.1 BP 150/62 H Blood Pressure Location Lt brachial Position Sitting Pulse 61 Pulse Source Pulse Oximeter Pulse Oximetry (%) 97 Oxygen Delivery Method Room Air Intake Visit Reasons: 6wks w lab confirmed Laboratory Animal Care Veterinarian Required: No Accompanied by: Daughter Allergies gluten Allergy (Unknown, Verified 03/18/25 15:24) Diarrhea milk protein Allergy (Unknown, Uncoded 11/05/23 14:30) Nausea and Vomiting tilactase Allergy (Unknown, Uncoded 11/05/23 14:30) Diarrhea Medication List - Last Reconciled 03/18/25 by Zack Santiago MD amlodipine 5 mg PO BID clopidogrel 75 mg PO DAILY fenofibric acid (choline) 135 mg PO DAILY hydrochlorothiazide 25 mg PO DAILY levothyroxine (Synthroid) 25 mcg PO DAILY multivitamin 1 tab PO DAILY netarsudil-latanoprost 0.02-0.005 % (Rocklatan) drps ophthalmic (eye) DAILY olmesartan 40 mg PO DAILY HPI Comments Details: Amrita is a pleasant 83-year-old woman with a history of longstanding hypertension with 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 She has superimposed white coat effect. Overall she is done well since the last visit. No new complaints today. She has been monitoring blood pressure at home. Home blood pressure readings are excellent with most readings staying in the 120-130 mm Hg systolic. Occasionally she is got systolic in the 100 range. In no hypertensive episodes. She exercises regularly. She walks about 6 miles a day. She has on a gluten free diet She had leg edema while she was on amlodipine 10 mg a day. Currently she is on 5 mg b.i.d. without significant edema. 02/04/25 Recently Doxszocin 1mg was added and Lisinopril to Olmesartan 40 mg due to cough Feels lightheaded Accompanied by daughter 03/18/25 - The patient is an 84-year-old female presenting with hypertension management. - Hypertension: Blood pressure previously low, now 142/60 mmHg. - Medication change: Lisinopril replaced with olmesartan due to cough, resolved. [facility] Medical History (Updated 11/07/23 @ 15:03 by Zack Santiago MD) FH: CABG (coronary artery bypass surgery) Surgical History H/O: hysterectomy Hx of cataract surgery Family History Mother Stroke Heart disease Hypertension Physical Exam Vital Signs: Last Vital Signs Pulse 61 03/18/25 15:22 BP 150/62 H 03/18/25 15:22 Pulse Ox 97 03/18/25 15:22 Oxygen Delivery Method Room Air 03/18/25 15:22 BMI result Body Mass Index 22.1 Const General: comfortable; No acute distress Orientation/consciousness: patient oriented x3 Eyes General: appearance normal, both eyes and all related structures Visual Clement: normal visual clement by confrontation Neck Neck: Yes supple and Yes no JVD Resp Effort & Inspection: normal respiratory effort and respiratory effort not decreased Cardio Palpation: no palpable S3 and no palpable S4 Heart sounds: no rubs GI Inspection: Yes normal to inspection Palpation (GI): Soft to palpation Percussion: Yes normal to percussion Auscultation: normal bowel sounds General: Yes no CVA tenderness Back/Spine/Pelvis Back: no CVA tenderness Skin General skin exam: no petechiae and no purpura Neuro General: patient oriented x3 and no focal motor deficits Extrem General: No clubbing and No edema Results Reviewed Results Reviewed: Feb 2025 BUN /Cr : 30 /1.28 Assessment & Plan Assessment & Plan (1) HTN (hypertension): Code(s): I10 - Essential (primary) hypertension Category: Medical Plan Amrita is a 84-year-old woman with a history of well-controlled hypertension based on home blood pressure readings. Office readings elevated due to superimposed white coat effect. At this point I have encouraged her to keep monitoring blood pressure at home. Stay on low-sodium diet I have not made any changes to the antihypertensive regimen. 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 Renal function stable with a creatinine 0.9 Continue to avoid nephrotoxic agents including NSAIDs and maintain A1c less than 7%. 02/04/25 Relative hypotension Symptomatic Borderline bradycardia Stop Doxazocin Watch BP at home May need to lower Benicar DAughter will call me in 4--5 days 03/18/25 Blood pressure. Acceptable at this time. No changes in antihypertensive regimen CKD age-related decline in EGFR in the setting of hypertension Continue to avoid nephrotoxic agents including NSAIDs Avoid hypotension Orders: Orders Basic Metabolic Panel 6 Months I10 - Essential (primary) hypertension Coding Level of Care Code Est Pt Level 4 (09981) Diagnoses HTN (hypertension) I10
--- OUTSIDE RECORDS SUMMARY | 2025-03-18 21:38 | XMS_ITS | Encounter Summary ---
Author Organization [facility] Address [address] [place] [address] Care Team Providers Care Hydrator Operator Name Role Phone Precious Latesha RUBIO Primary Care Provider [phone] Audrey Farooq MD Unavailable Katlin Rodriguez APRN Unavailable [phone] Jorge Abreu MD Unavailable Donato Hale MD Unavailable Zack Santiago MD Unavailable [phone] Zack Santiago MD Unavailable [phone] Donato Hale MD Unavailable [phone] Encounter Details Date Type Department Care Team (Late st Contact Info) Description 02/18/2015 Scanned Document [address] [address] Provider, Generic Social History Tobacco Use Types Packs/Day Years Used Date Smoking Tobacco: Never Alcohol Use Standard Drinks/Week Comments No 0 (1 standard drink = 0.6 oz pur e alcohol) Comments Unknown Sex and Gender Information Value Date Recorded Sex Assigned at Female 03/16/2025 2:16 PM EDT Legal Sex Female 11:42 AM EDT Gender Identity Not on file Sexual Orientation Not on file documented as of this encounter Plan of Treatment Upcoming Encounters Date Type Department Care Team (Late st Contact Info) Description 04/27/2025 9:30 AM EST Office Visit [facility] [place] 1244 [facility] [place] [address] Latesha Lang APRN 1244 [facility], [place] [phone] documented as of this encounter Visit Diagnoses Not on filedocumented in this encounter Care Teams Hydrator Operator Relationship Specialty Start Date End Date Latesha Lang APRN 1244 [facility], [place] [id number] PCP - General Family Medicine 01/18/15 Audrey Farooq MD [facility] [place] [address] Physician Ophthalmology 03/13/18 02/27/24 Katlin Rodriguez APRN [address] [place] [address] Teacher Associate 03/13/18 02/27/24 Jorge Abreu MD [address] [place] [address] Physician Urology 03/13/18 02/27/24 Donato Hale MD [address] [place] [address] Tunneller Internal Medicine 03/13/18 11/15/22 Zack Santiago MD [address] [employer] [address] [place] [address] Internal Medicine 11/24/21 11/15/22 Zack Santiago MD 100 [facility] [address] [place] [address] Internal Medicine 11/24/21 02/27/24 Donato Hale MD [address] [facility] [employer] [address] [place] [address] Tunneller Internal Medicine 11/16/22 documented as of this encounter
--- OUTSIDE RECORDS SUMMARY | 2025-03-18 21:38 | XMS_ITS | Encounter Summary ---
Author Organization [facility] Address [address] [place] [address] Care Team Providers Care Project Portfolio Analyst Name Role Phone Precious Latesha RUBIO Primary Care Provider [phone] Audrey Farooq MD Unavailable [phone] Katlin Rodriguez APRN Unavailable [phone] Jorge Abreu MD Unavailable Donato Hale MD Unavailable [phone] Zack Santiago MD Unavailable [phone] Zack Santiago MD Unavailable [phone] Donato Hale MD Unavailable Encounter Details Date Type Department Care Team (Late st Contact Info) Description 06/16/2015 Scanned Document [address] [address] Provider, Generic Social History Tobacco [...] Description 04/27/2025 9:30 AM EST Office Visit [facility] 1244 [place] [address] Latesha Lang APRN [address] [place], [place] [id number] documented as of this encounter Procedures Procedure Name Priority Date/Time Associated Diagnosis Comments IMAGING BREAST/BX/MAMMO 06/16/2015 documented in this encounter Results * IMAGING BREAST/BX/MAMMO (06/16/2015) Anatomical Region Laterality Modality Other Narrative 06/19/2015 1:13 AM EST Ordered by an unspecified provider. Generic Provider IMG LEGACY PROCEDURES Edited Re sult - Final documented in this encounter Visit Diagnoses Not on filedocumented in this encounter Care Teams Project Portfolio Analyst Relationship Specialty Start Date End Date Latesha Lang APRN 1244 [facility], [place] [id number] PCP - General Family Medicine 01/18/15 Audrey Farooq MD 1244 [place] [address] Physician Ophthalmology 03/13/18 02/27/24 Katlin Rodriguez APRN 100 [facility] [address] [place] [address] Gripper Machine Operator 03/13/18 02/27/24 Jorge Abreu MD [address] [place] [address] [address] [place] [address] Physician Urology 03/13/18 02/27/24 Donato Hale MD [address] [place] [address] [address] [place] [address] Control Room Tender Internal Medicine 03/13/18 11/15/22 Zack Santiago MD [address] [employer] [address] [place] [address] Internal Medicine 11/24/21 11/15/22 Zack Santiago MD [address] [employer] [address] [place] [address] Internal Medicine 11/24/21 02/27/24 Donato Hale MD [address] [employer] [address] [place] [address] Control Room Tender Internal Medicine 11/16/22 documented as of this encounter
--- OUTSIDE RECORDS SUMMARY | 2025-03-18 21:38 | XMS_ITS | Encounter Summary ---
Author Organization [facility] Address [address] [place] [address] Care Team Providers Care Dial Equipment Engineer Name Role Phone Precious Latesha RUBIO Primary Care Provider Audrey Farooq MD Unavailable Katlin Rodriguez APRN Unavailable [phone] Jorge Abreu MD Unavailable [phone] Donato Hale MD Unavailable Zack Santiago MD Unavailable [phone] Zack Santiago MD Unavailable [phone] Donato Hale MD Unavailable Encounter Details Date Type Department Care Team (Late st Contact Info) Description 11/14/2019 Scanned Document [address] [address] Provider, Generic Social History Tobacco [...] Description 04/27/2025 9:30 AM EST [facility] 1244 [facility] [place] [phone] Latesha Lang APRN 1244 [facility] [address] documented as of this encounter Visit Diagnoses Not on filedocumented in this encounter Care Teams Dial Equipment Engineer Relationship Specialty Start Date End Date Latesha Lang APRN 1244 [facility], [place] [id number] PCP - General Family Medicine 01/18/15 Audrey Farooq MD [facility] [address] Physician Ophthalmology 03/13/18 02/27/24 Katlin Rodriguez APRN [address] [place] [address] Weld Fitter 03/13/18 02/27/24 Jorge Abreu MD [address] [place] [address] Physician Urology 03/13/18 02/27/24 Donato Hale MD [address] [place] [address] Water Attendant Internal Medicine 03/13/18 11/15/22 Zack Santiago MD 100 [employer] [address] [place] [address] Internal Medicine 11/24/21 11/15/22 Zack Santiago MD [address] [employer] [address] [place] [address] Internal Medicine 11/24/21 02/27/24 Donato Hale MD [address] [employer] [address] [place] [address] Water Attendant Internal Medicine 11/16/22 documented as of this encounter
--- OUTSIDE RECORDS SUMMARY | 2025-03-18 21:38 | XMS_ITS | Encounter Summary ---
Author Organization [facility] Address [address] [place] [address] Care Team Providers Care Technical Sales Manager Name Role Phone Precious Latesha RUBIO Primary Care Provider [phone] Audrey Farooq MD Unavailable Katlin Rodriguez APRN Unavailable Jorge Abreu MD Unavailable Donato Hale MD Unavailable [phone] Zack Santiago MD Unavailable [phone] Zack Santiago MD Unavailable [phone] Donato Hale MD Unavailable Encounter Details Date Type Department Care Team (Late st Contact Info) Description 01/13/2015 Scanned Document [address] [address] Provider, Generic Social History Tobacco [...] Description 04/27/2025 9:30 AM EST Office Visit [facility] [place] [address] [place] [phone] Latesha Lang APRN [address] [facility], [place] [phone] documented as of this encounter Visit Diagnoses Not on filedocumented in this encounter Care Teams Technical Sales Manager Relationship Specialty Start Date End Date Latesha Lang APRN [address] [facility], [place] [phone] PCP - General Family Medicine 01/18/15 Audrey Farooq MD [address] [place] [address], [place] [phone] Physician Ophthalmology 03/13/18 02/27/24 aKtlin Rodriguez APRN [address] [address] Cashier General 03/13/18 02/27/24 Jorge Abreu MD [address] [place] [address] Physician Urology 03/13/18 02/27/24 Donato Hale MD [address] [place] [address] Computer Technical Specialist Internal Medicine 03/13/18 11/15/22 Zack Santiago MD [address] [phone] Internal Medicine 11/24/21 11/15/22 Zack Santiago MD [address] [employer] [address] [place] [address] Internal Medicine 11/24/21 02/27/24 Donato Hale MD 100 [facility] [address] [place] [address] Computer Technical Specialist Internal Medicine 11/16/22 documented as of this encounter
--- OUTSIDE RECORDS SUMMARY | 2025-03-18 21:38 | XMS_ITS | Encounter Summary ---
Author Organization [facility] Address [address] [place] [address] Care Team Providers Care Lab Support Service Tech Name Role Phone LangWiltonbruno RUBIO Primary Care Provider Audrey Farooq MD Unavailable Katlin Rodriguez APRN Unavailable [phone] Jorge Abreu MD Unavailable [phone] Donato Hale MD Unavailable Zack Santiago MD Unavailable [phone] Zack Santiago MD Unavailable [phone] Donato Hale MD Unavailable Encounter Details Date Type Department Care Team (Late st Contact Info) Description 11/20/2018 Scanned Document [address] [address] Cardiology, Scan Social History Tobacco [...] Description 04/27/2025 9:30 AM EST [facility] 1244 [facility] [place] [phone] Latesha Lang APRN 1244 [place] [address] documented as of this encounter Visit Diagnoses Not on filedocumented in this encounter Care Teams Lab Support Service Tech Relationship Specialty Start Date End Date Latesha Lang APRN 1244 [facility], [place] [phone] PCP - General Family Medicine 01/18/15 Audrey Farooq MD [facility] [place] [address] Physician Ophthalmology 03/13/18 02/27/24 Katlin Rodriguez APRN [address] [place] [address] Horse Trader 03/13/18 02/27/24 Jorge Abreu MD [address] [place] [address] Physician Urology 03/13/18 02/27/24 Donato Hale MD [address] [place] [address] Sample Taker Operator Internal Medicine 03/13/18 11/15/22 Zack Santiago MD [address] [employer] [address] [place] [address] Internal Medicine 11/24/21 11/15/22 Zack Santiago MD [address] [employer] [address] [place] [address] Internal Medicine 11/24/21 02/27/24 Donato Hale MD [address] [employer] [address] [place] [address] Sample Taker Operator Internal Medicine 11/16/22 documented as of this encounter
--- OUTSIDE RECORDS SUMMARY | 2025-03-18 21:38 | XMS_ITS | Encounter Summary ---
Author Organization [facility] Address [address] [place] [address] Care Team Providers Care Fiscal Officer Name Role Phone Precious Latesha RUBIO Primary Care Provider [phone] Audrey Farooq MD Unavailable Katlin Rodriguez APRN Unavailable [phone] Jorge Abreu MD Unavailable Donato Hale MD Unavailable [phone] Zack Santiago MD Unavailable [phone] Zack Santiago MD Unavailable [phone] Donato Hale MD Unavailable Encounter Details Date Type Department Care Team (Late st Contact Info) Description 11/19/2015 Scanned Document [address] [address] Provider, Generic Social History Tobacco [...] Description 04/27/2025 9:30 AM EST Office Visit [facility] [place] 1244 [place] [address] Latesha Lang APRN 1244 [facility], [place] [phone] documented as of this encounter Visit Diagnoses Not on filedocumented in this encounter Care Teams Fiscal Officer Relationship Specialty Start Date End Date Latesha Lang APRN 1244 [facility], [place] [phone] PCP - General Family Medicine 01/18/15 Audrey Farooq MD [facility] [place] [address] Physician Ophthalmology 03/13/18 02/27/24 Katlin Rodriguez APRN [address] [place] [address] Director Of Sales And Marketing 03/13/18 02/27/24 Jorge Abreu MD [address] [place] [address] Physician Urology 03/13/18 02/27/24 Donato Hale MD [address] [place] [address] Molded Rubber Goods Cutter Internal Medicine 03/13/18 11/15/22 Zack Santiago MD 100 [employer] 200 [place] [address] Internal Medicine 11/24/21 11/15/22 Zack Santiago MD 100 [facility] [address] [place] [address] Internal Medicine 11/24/21 02/27/24 Donato Hale MD 100 [facility] [address] [place] [address] Molded Rubber Goods Cutter Internal Medicine 11/16/22 documented as of this encounter
--- OUTSIDE RECORDS SUMMARY | 2025-03-18 21:38 | XMS_ITS | Encounter Summary ---
Author Organization [facility] Address [address] [place] [address] Care Team Providers Care Factory Manager Name Role Phone Latesha Lang APRN Primary Care Provider Audrey Farooq MD Unavailable Katlin Rodriguez APRN Unavailable [phone] Jorge Abreu MD Unavailable Donato Hale MD Unavailable [phone] Zack Santiago MD Unavailable [phone] Zack Santiago MD Unavailable Donato Hale MD Unavailable [phone] Encounter Details Date Type Department Care Team (Late st Contact Info) Description 07/04/2018 Scanned Document [facility] 12[address] [place] [address] Latesha Lang APRN 12[address] [place] [address] Social History Tobacco Use Types [...] Description 04/27/2025 9:30 AM EST [facility] [place] [phone] Latesha Lang APRN [address] [place] [address] documented as of this encounter Visit Diagnoses Not on filedocumented in this encounter Care Teams Factory Manager Relationship Specialty Start Date End Date Latesha Lang APRN [address] [place], [place] [phone] PCP - General Family Medicine 01/18/15 Audrey Farooq MD [address] [place] [address] Physician Ophthalmology 03/13/18 02/27/24 Katlin Rodriguez APRN 100 [facility] [address] [place] [address] Gear And Spline Grinder 03/13/18 02/27/24 Jorge Abreu MD [address] [place] [address] Physician Urology 03/13/18 02/27/24 Donato Hale MD [address] [place] [address] Senior Information Systems Architect Internal Medicine 03/13/18 11/15/22 Zack Santiago MD [address] [employer] [address] [place] [address] Internal Medicine 11/24/21 11/15/22 Zack Santiago MD [address] [employer] [address] [place] [address] Internal Medicine 11/24/21 02/27/24 Donato Hale MD [address] [employer] [address] [place] [address] Senior Information Systems Architect Internal Medicine 11/16/22 documented as of this encounter
--- OUTSIDE RECORDS SUMMARY | 2025-03-18 21:38 | XMS_ITS | Encounter Summary ---
Author Organization [facility] Address [address] [place] [address] Care Team Providers Care Banquet Set Up Person Name Role Phone Precious Latesha RUBIO Primary Care Provider Audrey Farooq MD Unavailable Katlin Rodriguez APRN Unavailable [phone] Jorge Abreu MD Unavailable [phone] Donato Hale MD Unavailable Zack Santiago MD Unavailable [phone] Zack Santiago MD Unavailable [phone] Donato Hale MD Unavailable [phone] Encounter Details Date Type Department Care Team (Late st Contact Info) Description 01/18/2016 Scanned Document [address] [address] Provider, Generic Social History Tobacco [...] on file documented as of this encounter Functional Status documented as of this encounter Plan of Treatment Upcoming Encounters Date Type Department Care Team (Late st Contact Info) Description 04/27/2025 9:30 AM EST Office [facility] [place] [address] [place] [address] Latesha Lang APRN [address] [place] [address] [place] [phone] documented as of this encounter Visit Diagnoses Not on filedocumented in this encounter Care Teams Banquet Set Up Person Relationship Specialty Start Date End Date Latesha Lang APRN [address] [place] [phone] PCP - General Family Medicine 01/18/15 Audrey Farooq MD [address] [place] [address] Physician Ophthalmology 03/13/18 02/27/24 Katlin Rodriguez APRN [address] [place] [address] Well Flow Operator 03/13/18 02/27/24 Jorge Abreu MD [address] [place] [address] Physician Urology 03/13/18 02/27/24 Donato Hale MD [address] [place] [address] Nfl Player Internal Medicine 03/13/18 11/15/22 Zack Santiago MD 100 [facility] [address] [address] [place] [address] Internal Medicine 11/24/21 11/15/22 Zack Santiago MD 100 [facility] [address] [place] [address] Internal Medicine 11/24/21 02/27/24 Donato Hale MD 100 [facility] [address] [place] [address] Nfl Player Internal Medicine 11/16/22 documented as of this encounter
--- OUTSIDE RECORDS SUMMARY | 2025-03-18 21:38 | XMS_ITS | Encounter Summary ---
Author Organization [facility] Address [address] [place] [address] Care Team Providers Care Proof Clerk Name Role Phone LangWiltonbruno RUBIO Primary Care Provider Audrey Farooq MD Unavailable Katlin Rodriguez APRN Unavailable [phone] Jorge Abreu MD Unavailable Donato Hale MD Unavailable Zack Santiago MD Unavailable [phone] Zack Santiago MD Unavailable [phone] Donato Hale MD Unavailable Encounter Details Date Type Department Care Team (Late st Contact Info) Description 02/22/2015 Scanned Document [facility] Dermatology [address] [address] Provider, Generic Social History Tobacco Use Types [...] 9:30 AM EST Office Visit [facility] [place] [address] [facility] [place] [address] Latesha Lang APRN 1244 [place] [address] documented as of this encounter Visit Diagnoses Not on filedocumented in this encounter Care Teams Proof Clerk Relationship Specialty Start Date End Date Latesha Lang APRN 1244 [facility], [place] [id number] PCP - General Family Medicine 01/18/15 Audrey Farooq MD [facility] [place] [address] Physician Ophthalmology 03/13/18 02/27/24 Katlin Rodriguez APRN [address] [place] [address] Assurance Officer 03/13/18 02/27/24 Jorge Abreu MD [address] [place] [address] Physician Urology 03/13/18 02/27/24 Donato Hale MD [address] [place] [address] Incident Response Lead Internal Medicine 03/13/18 11/15/22 Zack Santiago MD [address] [place] [address] Internal Medicine 11/24/21 11/15/22 Zack Santiago MD [address] [facility] [place] [address] Internal Medicine 11/24/21 02/27/24 Donato Hale MD [address] [facility] [place] [address] Incident Response Lead Internal Medicine 11/16/22 documented as of this encounter
--- OUTSIDE RECORDS SUMMARY | 2025-03-18 21:38 | XMS_ITS | Encounter Summary ---
Author Organization [facility] Address [address] [place] [address] Care Team Providers Care Freezer Unloader Name Role Phone Precious Latesha RUBIO Primary Care Provider [phone] Audrey Farooq MD Unavailable Katlin Rodriguez APRN Unavailable [phone] Jorge Abreu MD Unavailable Donato Hale MD Unavailable Zack Santiago MD Unavailable [phone] Zack Santiago MD Unavailable [phone] Donato Hale MD Unavailable Encounter Details Date Type Department Care Team (Late st Contact Info) Description 02/14/2017 Scanned Document [address] [address] Provider, Generic Social History Tobacco [...] [facility] 1244 [facility] [place] [address] Latesha Lang APRN 1244 [facility] [place], [place] [id number] documented as of this encounter Procedures Procedure Name Priority Date/Time Associated Diagnosis Comments LAB RESULT 02/14/2017 documented in this encounter Results * LAB RESULT (02/14/2017) Narrative 02/14/2017 Ordered by an unspecified provider. us Generic Provider HX AMB PROCEDURES Final Result documented in this encounter Visit Diagnoses Not on filedocumented in this encounter Care Teams Freezer Unloader Relationship Specialty Start Date End Date Latesha Lang APRN 1244 [facility] [place], [place] [id number] PCP - General Family Medicine 01/18/15 Audrey Farooq MD 1244 [facility] [place] [place] [address] Physician Ophthalmology 03/13/18 02/27/24 Katlin Rodriguez APRN 100 [facility] [address] [place] [address] Steel Post Installer 03/13/18 02/27/24 Jorge Abreu MD [address] [place] [address] [address] [place] [address] Physician Urology 03/13/18 02/27/24 Donato Hale MD [address] [place] [address] [address] [place] [address] Straightedge Man Internal Medicine 03/13/18 11/15/22 Zack Santiago MD [address] [place] [address] Internal Medicine 11/24/21 11/15/22 Zack Santiago MD [address] [place] [address] Internal Medicine 11/24/21 02/27/24 Donato Hale MD [address] [place] [address] Straightedge Man Internal Medicine 11/16/22 documented as of this encounter
--- OUTSIDE RECORDS SUMMARY | 2025-03-18 21:38 | XMS_ITS | Encounter Summary ---
Author Organization [facility] Address [address] [place] [address] Care Team Providers Care Printed Circuit Boards Inspector Name Role Phone Latesha Lang APRN Primary Care Provider Audrey Farooq MD Unavailable Katlin Rodriguez APRN Unavailable Jorge Abreu MD Unavailable [phone] Donato Hale MD Unavailable [phone] Zack Santiago MD Unavailable [phone] Zack Santiago MD Unavailable Donato Hale MD Unavailable [phone] Encounter Details Date Type Department Care Team (Late st Contact Info) Description 07/04/2018 Scanned Document [facility] 12[address] [place] [address] Latesha Lang APRN [address] [place] [address] Social History Tobacco Use Types [...] Description 04/27/2025 9:30 AM EST Office [facility] [address] [place] [address] Latesha Lang APRN [address] [place] [address] documented as of this encounter Visit Diagnoses Not on filedocumented in this encounter Care Teams Printed Circuit Boards Inspector Relationship Specialty Start Date End Date Latesha Lang APRN [address] [place], [place] [id number] PCP - General Family Medicine 01/18/15 Audrey Farooq MD [address] [place] [address] Physician Ophthalmology 03/13/18 02/27/24 Katlin Rodriguez APRN 100 [facility] [address] [place] [address] Disability Manager 03/13/18 02/27/24 Jorge Abreu MD [address] [place] [address] Physician Urology 03/13/18 02/27/24 Donato Hale MD [address] [place] [address] Graphics Editor Internal Medicine 03/13/18 11/15/22 Zack Santiago MD [address] [place] [address] Internal Medicine 11/24/21 11/15/22 Zack Santiago MD [address] [address] [place] [address] Internal Medicine 11/24/21 02/27/24 Donato Hale MD [address] [place] [address] Graphics Editor Internal Medicine 11/16/22 documented as of this encounter
--- OUTSIDE RECORDS SUMMARY | 2025-03-18 21:38 | XMS_ITS | Clinical Summary ---
Author Organization [facility] Address [address] [place] [address] Care Team Providers Care Men'S Designer Name Role Phone Latesha Lang APRN Primary Care Provider [phone] Allergies Active Allergy Reactions Criticality Noted Date [...] 2 (two) times a day. 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
--- OUTSIDE RECORDS SUMMARY | 2025-03-18 21:38 | XMS_ITS | Encounter Summary ---
Author Organization [facility] Address [address] [place] [address] Care Team Providers Care Canoe Inspector Name Role Phone Precious Latesha RUBIO Primary Care Provider [phone] Audrey Farooq MD Unavailable Katlin Rodriguez APRN Unavailable [phone] Jorge Abreu MD Unavailable Donato Hale MD Unavailable Zack Santiago MD Unavailable [phone] Zack Santiago MD Unavailable [phone] Donato Hale MD Unavailable [phone] Encounter Details Date Type Department Care Team (Late st Contact Info) Description 04/30/2015 Scanned Document [address] [address] Provider, Generic Social History Tobacco [...] Description 04/27/2025 9:30 AM EST Office Visit [facility] 1244 [place] [address] Latesha Lang APRN 1244 [facility], [place] [id number] documented as of this encounter Visit Diagnoses Not on filedocumented in this encounter Care Teams Canoe Inspector Relationship Specialty Start Date End Date Latesha Lang APRN 1244 [facility], [place] [phone] PCP - General Family Medicine 01/18/15 Audrey Farooq MD [facility] [place] [address] Physician Ophthalmology 03/13/18 02/27/24 Katlin Rodriguez APRN [address] [place] [address] Braider Operator 03/13/18 02/27/24 Jorge Abreu MD [address] [place] [address] Physician Urology 03/13/18 02/27/24 Donato Hale MD [address] [place] [address] Roller Varnisher Internal Medicine 03/13/18 11/15/22 Zack Santiago MD [address] [place] [address] Internal Medicine 11/24/21 11/15/22 Zack Santiago MD 100 [facility] [address] [place] [address] Internal Medicine 11/24/21 02/27/24 Donato Hale MD 100 [facility] [employer] [address] [place] [address] Roller Varnisher Internal Medicine 11/16/22 documented as of this encounter
--- OUTSIDE RECORDS SUMMARY | 2025-03-18 21:38 | XMS_ITS | Encounter Summary ---
Author Organization [facility] Address [address] [place] [address] Care Team Providers Care Ethernet Network Architect Name Role Phone Precious Latesha RUBIO Primary Care Provider Audrey Farooq MD Unavailable Katlin Rodriguez APRN Unavailable [phone] Jorge Abreu MD Unavailable [phone] Donato Hale MD Unavailable [phone] Zack Santiago MD Unavailable [phone] Zack Santiago MD Unavailable [phone] Donato Hale MD Unavailable [phone] Encounter Details Date Type Department Care Team (Late st Contact Info) Description 03/06/2017 Scanned Document [address] [address] Provider, Generic Social History Tobacco [...] documented as of this encounter Functional Status * Question Answer Date of Assessment Author PHQ-2 Total Score 0 03/06/2017 8:00 AM EDT Mildred Frias * PHQ-9 Total Score Answer Date of Assessment Author 0 03/06/2017 8:00 AM EDT Mildred Frias documented as of this encounter Plan of Treatment Upcoming Encounters Date Type Department Care Team (Late st Contact Info) Description 04/27/2025 9:30 AM EST Office Visit [facility] [place] [address] [place] [address] Latesha Lang APRN [address] [place] [address] documented as of this encounter Visit Diagnoses Not on filedocumented in this encounter Care Teams Ethernet Network Architect Relationship Specialty Start Date End Date Latesha Lang APRN [address] [place] [facility] [place] [phone] PCP - General Family Medicine 01/18/15 Audrey Farooq MD [address] [place] [address] Physician Ophthalmology 03/13/18 02/27/24 Katlin Rodriguez APRN [address] [place] [address] [place] [address] Supervisor Tumbling And Rolling 03/13/18 02/27/24 Jorge Abreu MD [address] [place] [address] [address] [place] [address] Physician Urology 03/13/18 02/27/24 Donato Hale MD [address] [place] [address] [address] [place] [address] Cement Finisher Internal Medicine 03/13/18 11/15/22 Zcak Santiago MD [address] [place] [address] Internal Medicine 11/24/21 11/15/22 Zack Santiago MD [address] [place] [address] Internal Medicine 11/24/21 02/27/24 Donato Hale MD [address] [place] [address] Cement Finisher Internal Medicine 11/16/22 documented as of this encounter
--- OUTSIDE RECORDS SUMMARY | 2025-03-18 21:38 | XMS_ITS | Encounter Summary ---
Author Organization [facility] Address [address] [place] [address] Care Team Providers Care Seam Sewer Name Role Phone Latesha Lang APRN Primary Care Provider [phone] Donato Hale MD Unavailable [phone] Reason for Visit * Reason Onset Date Comments Other 01/20/2025 Blood pressure r bryants Encounter Details Date Type Department Care Team ([facility] st Contact Info) Description 01/20/2025 Telephone [place] [address] [place] [address] Latesha Lang APRN [facility]4 [place] [address] Other (Blood pressure readings) Social [...] Description 04/27/2025 9:30 AM EST Office Visit [facility] [place] 1244 [place] [address] Latesha Lang APRN 1244 [place] [address] documented as of this encounter Visit Diagnoses Not on filedocumented in this encounter Care Teams Seam Sewer Relationship Specialty Start Date End Date Latesha Lang APRN 1244 [facility], [place] [phone] PCP - General Family Medicine 01/18/15 Donato Hale MD 1244 [place] [address] Lot Associate Internal Medicine 11/16/22 documented as of this encounter
--- OUTSIDE RECORDS SUMMARY | 2025-03-18 21:38 | XMS_ITS | Encounter Summary ---
Author Organization [facility] Address [address] [place] [address] Care Team Providers Care Social Insurance Adviser Name Role Phone Latesha Lang APRN Primary Care Provider [phone] Audrey Farooq MD Unavailable Katlin Rodriguez APRN Unavailable Jorge Abreu MD Unavailable Donato Hale MD Unavailable Zack Santiago MD Unavailable [phone] Zack Santiago MD Unavailable [phone] Donato Hale MD Unavailable Encounter Details Date Type Department Care Team (Late st Contact Info) Description 08/11/2019 Scanned Document [facility] 1244 [place] [address] Latesha Lang APRN 1244 [place] [address] Social History Tobacco Use Types [...] 9:30 AM EST [facility] 1244 [place] [address] Latesha Lang APRN [address] [place], [place] [phone] documented as of this encounter Visit Diagnoses Not on filedocumented in this encounter Care Teams Social Insurance Adviser Relationship Specialty Start Date End Date Latesha Lang APRN [address] [place], [place] [id number] PCP - General Family Medicine 01/18/15 Audrey Farooq MD [address] [place] [address] Physician Ophthalmology 03/13/18 02/27/24 Katlin Rodriguez APRN 100 [facility] [address] [place] [address] Youth Development Specialist 03/13/18 02/27/24 Jorge Abreu MD [address] [place] [address] Physician Urology 03/13/18 02/27/24 Donato Hale MD [address] [place] [address] Preschool Principal Internal Medicine 03/13/18 11/15/22 Zack Santiago MD [address] [place] [address] Internal Medicine 11/24/21 11/15/22 Zack Santiago MD [address] [employer] [address] [place] [address] Internal Medicine 11/24/21 02/27/24 Donato Hale MD [address] [employer] [address] [place] [address] Preschool Principal Internal Medicine 11/16/22 documented as of this encounter
--- OUTSIDE RECORDS SUMMARY | 2025-03-18 21:38 | XMS_ITS | Encounter Summary ---
Author Organization [facility] Address [address] [place] [address] Care Team Providers Care Attorney General Name Role Phone Latesha Lang APRN Primary Care Provider [phone] Donato Hale MD Unavailable [phone] Encounter Details Date Type Department Care Team (Late Contact Info) Description 02/04/2025 Scanned Document [address] [address] Latesha Lang APRN [facility]4 [place] [address] Social History Tobacco Use Types Packs/Day Years [...] Department Care Team (Late Contact Info) Description 04/27/2025 9:30 AM EST Office Visit [facility] [place] [address] [place] [address] Latesha Lang APRN 1244 [place] [address] documented as of this encounter Visit Diagnoses Not on filedocumented in this encounter Care Teams Attorney General Relationship Specialty Start Date End Date Latesha Lang APRN 1244 [facility], [place] [phone] PCP - General Family Medicine 01/18/15 Donato Hale MD 1244 [place] [address] College Associate Internal Medicine 11/16/22 documented as of this encounter
--- OUTSIDE RECORDS SUMMARY | 2025-03-18 21:38 | XMS_ITS | Encounter Summary ---
Author Organization [facility] Address [address] [place] [address] Care Team Providers Care Ethnoarchaeology Professor Name Role Phone Precious Latesha RUBIO Primary Care Provider Audrey Farooq MD Unavailable [phone] Katlin Rodriguez APRN Unavailable [phone] Jorge Abreu MD Unavailable [phone] Donato Hale MD Unavailable Zack Santiago MD Unavailable [phone] Zack Santiago MD Unavailable [phone] Donato Hale MD Unavailable [phone] Encounter Details Date Type Department Care Team (Late st Contact Info) Description 02/16/2020 Scanned Document [address] [address] Provider, Generic Social History Tobacco [...] Description 04/27/2025 9:30 AM EST Office Visit [facility] 1244 [place] [address] Latesha Lang APRN 1244 [facility], [place] [id number] documented as of this encounter Visit Diagnoses Not on filedocumented in this encounter Care Teams Ethnoarchaeology Professor Relationship Specialty Start Date End Date Latesha Lang APRN 1244 [facility], [place] [phone] PCP - General Family Medicine 01/18/15 Audrey Farooq MD [address] [place] [address], [place] [address] Physician Ophthalmology 03/13/18 02/27/24 Katlin Rodriguez APRN [address] [address] Svp Digital Ad Sales 03/13/18 02/27/24 Jorge Abreu MD [address] [place] [address] Physician Urology 03/13/18 02/27/24 Donato Hale MD [address] [place] [address] Side Splitter Internal Medicine 03/13/18 11/15/22 Zack Santiago MD 100 [facility] [address] [address] Internal Medicine 11/24/21 11/15/22 Zack Santiago MD 100 [facility] [address] Internal Medicine 11/24/21 02/27/24 Donato Hale MD 100 [facility] [address] [address] Side Splitter Internal Medicine 11/16/22 documented as of this encounter
--- OUTSIDE RECORDS SUMMARY | 2025-03-18 21:38 | XMS_ITS | Encounter Summary ---
Author Organization [facility] Address [address] [place] [address] Care Team Providers Care Electrical Plumbing Supervisor Name Role Phone Precious Latesha RUBIO Primary Care Provider Audrey Farooq MD Unavailable Katlin Rodriguez APRN Unavailable [phone] Jorge Abreu MD Unavailable Donato Hale MD Unavailable Zack Santiago MD Unavailable [phone] Zack Santiago MD Unavailable [phone] Donato Hale MD Unavailable [phone] Encounter Details Date Type Department Care Team (Late st Contact Info) Description 07/05/2017 Scanned Document [address] [address] Provider, Generic Social History Tobacco [...] [facility] 1244 [place] [address] Latesha Lang APRN 1244 [facility] [address] documented as of this encounter Visit Diagnoses Not on filedocumented in this encounter Care Teams Electrical Plumbing Supervisor Relationship Specialty Start Date End Date Latesha Lang APRN 1244 [facility], [place] [phone] PCP - General Family Medicine 01/18/15 Audrey Farooq MD [facility] [address] Physician Ophthalmology 03/13/18 02/27/24 Katlin Rodriguez APRN [address] [place] [address] Subway Train Driver 03/13/18 02/27/24 Jorge Abreu MD [address] [place] [address] Physician Urology 03/13/18 02/27/24 Donato Hale MD [address] [place] [address] Antique Clocks Repairer Internal Medicine 03/13/18 11/15/22 Zack Santiago MD [address] [employer] [address] [place] [address] Internal Medicine 11/24/21 11/15/22 Zack Santiago MD [address] [employer] [address] [place] [address] Internal Medicine 11/24/21 02/27/24 Donato Hale MD [address] [employer] [address] [place] [address] Antique Clocks Repairer Internal Medicine 11/16/22 documented as of this encounter
--- OUTSIDE RECORDS SUMMARY | 2025-03-18 21:38 | XMS_ITS | Encounter Summary ---
Author Organization [facility] Address [address] [place] [address] Care Team Providers Care Fish Net Maker Name Role Phone Precious Latesha RUBIO Primary Care Provider Audrey Farooq MD Unavailable Katlin Rodriguez APRN Unavailable [phone] Jorge Abreu MD Unavailable Donato Hale MD Unavailable Zack Santiago MD Unavailable [phone] Zack Santiago MD Unavailable [phone] Donato Hale MD Unavailable Encounter Details Date Type Department Care Team (Late st Contact Info) Description 05/30/2019 Scanned Document [address] [address] Provider, Generic Social History Tobacco [...] Description 04/27/2025 9:30 AM EST Office [facility] 1244 [facility] [place] [phone] Latesha Lang APRN 1244 [place] [address] documented as of this encounter Visit Diagnoses Not on filedocumented in this encounter Care Teams Fish Net Maker Relationship Specialty Start Date End Date Latesha Lang APRN 1244 [facility], [place] [phone] PCP - General Family Medicine 01/18/15 Audrey Farooq MD [facility] [place] [address] Physician Ophthalmology 03/13/18 02/27/24 Katlin Rodriguez APRN [address] [place] [address] Space Systems Operations Superintendent 03/13/18 02/27/24 Jorge Abreu MD [address] [place] [address] Physician Urology 03/13/18 02/27/24 Donato Hale MD [address] [place] [address] Solidworks Mechanical Designer Internal Medicine 03/13/18 11/15/22 Zack Santiago MD 100 [employer] [address] [place] [address] Internal Medicine 11/24/21 11/15/22 Zack Santiago MD [address] [employer] [address] [place] [address] Internal Medicine 11/24/21 02/27/24 Donato Hale MD [address] [address] [place] [address] Solidworks Mechanical Designer Internal Medicine 11/16/22 documented as of this encounter
--- OUTSIDE RECORDS SUMMARY | 2025-03-18 21:38 | XMS_ITS | Encounter Summary ---
Author Organization [facility] Address [address] [place] [address] Care Team Providers Care Catering Convention Services Manager Name Role Phone Precious Latesha RUBIO Primary Care Provider Audrey Farooq MD Unavailable Katlin Rodriguez APRN Unavailable [phone] Jorge Abreu MD Unavailable Donato Hale MD Unavailable Zack Santiago MD Unavailable [phone] Zack Santiago MD Unavailable [phone] Donato Hale MD Unavailable Encounter Details Date Type Department Care Team (Late st Contact Info) Description 03/25/2022 Scanned Document [address] [address] Provider, Generic Social History Tobacco [...] Description 04/27/2025 9:30 AM EST [facility] [address] [place] [address] Latesha Lang APRN [address] [place] [address] documented as of this encounter Visit Diagnoses Not on filedocumented in this encounter Care Teams Catering Convention Services Manager Relationship Specialty Start Date End Date Latesha Lang APRN [address] [facility], [place] [id number] PCP - General Family Medicine 01/18/[address] [facility] [place] [address] Physician Ophthalmology 03/13/18 02/27/24 Katlin Rodriguez APRN [address] [place] [id number] First Cook 03/13/18 02/27/24 Jorge Abreu MD [address] [place] [address] Physician Urology 03/13/18 02/27/24 Donato Hale MD [address] [place] [address] Electrical Technician Instructor Internal Medicine 03/13/18 11/15/22 Zack Santiago MD [address] [place] [address] Internal Medicine 11/24/21 11/15/22 Zack Santiago MD [address] [facility] [address] [place] [address] Internal Medicine 11/24/21 02/27/24 Donato Hale MD [address] [facility] [address] [place] [address] Electrical Technician Instructor Internal Medicine 11/16/22 documented as of this encounter
--- OUTSIDE RECORDS SUMMARY | 2025-03-18 21:38 | XMS_ITS | Clinical Summary ---
Author Organization [facility] Address [address] [place] [address] Care Team Providers Care Corporate Travel Agent Name Role Phone Latesha Lang BANK VAULT CLERK Primary Care Provider [phone] Allergies Active Allergy Reactions Criticality Noted Date [...] morning. on an empty stomach. 4 Active hydroCHLOROthiaz jigar (MICROZIDE) 12.5 mg capsule Take 2 capsules (25 mg total) by mouth 1 (one) time each day. Active fenofibric acid (TRILIPIX) 135 mg capsule Take 1 capsule (135 mg total) by mouth daily. 9 Active OneTouch Ultra Test test strip USE TO TEST THREE TIMES DAILY 4 Active rosuvastatin (CRESTOR) 20 mg tablet TAKE ONE TABLET BY MOUTH EVERY DAY 90 tablet 3 5 Active doxazosin (Cardura) 1 mg tablet Take 1 tablet (1 mg total) by mouth at bedtime. 30 tablet 11 5 12/16/19 26 Active UNABLE TO FIND Prevagen Activ e netarsudiL-latan oprost (Rocklatan) 0.02-0.005 % drops Administer into affected eye(s) 1 (one) time each day. Active olmesartan (Benicar) 40 mg tablet Take 1 tablet (40 mg total) by mouth 1 (one) time each day. 90 each 3 5 01/17/20 26 Active amLODIPine (NORVASC) 5 mg tablet TAKE ONE TABLET BY MOUTH TWICE A DAY 180 tablet 3 5 Active Active Problems Problem Noted Date Diagnosed Date Hypertension 07/21/2024 Chest pain 03/04/2024 Familial hypercholesterolemia 07/05/2017 Encounters Date Type Department Care Team Description 02/06/2025 Telephone [facility] Cardiology [address] [address] Lakshmi Angel MA 01/16/2025 11:15 AM EDT Office Visit [address] [address] Donato Hale MD Ventricular premature depolarization (Primary Dx); Mild cardiomegaly; S/P CABG (coronary artery bypass graft); Mixed hyperlipidemia; Primary hypertension 12/16/[address] [address] Lakshmi Angel MA from Last 3 Months Immunizations Immunization Administration Dates Next Due Moderna SARS-CoV-2 COVID-19, [...] Description 10/16/2025 10:30 AM EDT Office Visit [facility] [place] [address] [facility] [address] [place] [address] Donato Hale MD 19 [facility] [address] [place] [address] Health Maintenance Due Date Last Done Comments Diabetes: Annual Foot Exam 1952 Diabetes: Annual Retina Eye Exam 1950 Zoster Vaccines (1 of 2) 1992 RSV Immunization Adult Patients (1 - 1-dose 75+ series) 2017 Falls Risk Assessment 04/16/2020 Medicare Annual Wellness Visit 04/16/2020 Osteoporosis Screening (Bone Density Screening) 04/16/2020 02/10/2025 Social Influencers of Health Screening 04/16/2020 Depression Screening 05/28/2024 COVID-19 Vaccine ( season) 2025 09/21/2021, 04/29/2021, 07/06/2020, Additional history exists Influenza Vaccine (#1) 2025 , 03/27/2023, 03/23/2022, Additional history exists Diabetes: Blood Sugar Control Test (HGBA1C) 04/29/2025 10/28/2024, 02/28/2024, 03/19/2018 Diabetes: Annual GFR (Glomerular Filtration Rate) 11/20/2025 03/17/2025, 11/20/2024, 05/06/2024, Additional history exists Hypertension/CHF/CAD Annual BMP Blood Test 11/20/2025 03/17/2025, 11/20/2024, 05/06/2024, Additional history exists Diabetes: Annual Urine Albumin-Creatinine [...] Associated Diagnosis Comments BASIC METABOLIC PANEL Routine 03/17/2025 4:52 PM EDT Essential hypertension, malignant HM URINE ALBUMIN CREATININE RATIO Routine 02/29/2024 LIPID PANEL Routine 10/09/2023 HEMOGLOBIN A1C Routine 03/19/2018 from Last 3 Months or Most Recently Relevant to Health Maintenance Results * (ABNORMAL) Basic metabolic panel (03/17/2025 4:52 PM EDT) Sodium 139 135 - 145 mmol/L LAB CHEMISTRY METHOD 03/17/2025 5:16 PM EDT [facility] Potassium 3.9 3.5 - 5.1 mmol/L LAB CHEMISTRY METHOD 03/17/2025 5:16 PM EDT [facility] Chloride 101 98 - 107 mmol/L LAB CHEMISTRY METHOD 03/17/2025 5:16 PM EDT [facility] CO2 31 24 - 32 mmol/L LAB CHEMISTRY METHOD 03/17/2025 5:16 PM EDT [facility] Anion Gap 7 5 - 14 LAB CHEMISTRY METHOD 03/17/2025 5:16 PM EDT [facility] Glucose 136 70 - 199 mg/dL LAB CHEMISTRY METHOD 03/17[facility]2025 [facility] BUN 30(H) 7 - 20 mg/dL LAB CHEMISTRY METHOD 03/17/2025 5[facility] Creatinine 1.28 0.50 - 1.30 mg/dL LAB CHEMISTRY METHOD 03/17/2025 5:[facility] eGFR 56(L) >=60 mL/min/1. 73m2 LAB CHEMISTRY METHOD 03/17/2025 5:16 PM EDT [facility] Comment:Calculation based on the Chronic Kidney Disease Epidemiology Collaboration (CKD-EPI) equation refit without adjustment for race. BUN/Creatinine Ratio 23.4(H) 12.0 - 20.0 LAB CHEMISTRY METHOD 03/17/2025 5:[facility] Calcium 9.8 8.4 - 10.2 mg/dL LAB CHEMISTRY METHOD 03/17/2025 5:[facility] Blood Venous blood specimen / Unknown Venipuncture / Unknown 03/17/2025 4:52 PM EDT 03/17/2025 4:56 PM EDT Zack Santiago MD LAB BLOOD ORDERABL ES Final Result [facility] [place] Reg. #:[id number] [address] [place] [address], * Lipid panel (10/09/2023) Triglycerides 112 <=150 [...] to Health Maintenance Insurance [employer] MEDICARE Care Teams Corporate Travel Agent Relationship Specialty Start Date End Date Latesha Lang FNP [address] [facility] [place] [address] PCP - General Family Medicine 01/13/15
--- OUTSIDE RECORDS SUMMARY | 2025-03-18 21:38 | XMS_ITS | Encounter Summary ---
Author Organization [facility] Address [address] [place] [address] Care Team Providers Care Plasterer Maintenance Name Role Phone Latesha Lang APRN Primary Care Provider Audrey Farooq MD Unavailable Katlin Rodriguez APRN Unavailable [phone] Jorge Abreu MD Unavailable [phone] Donato Hale MD Unavailable Zack Santiago MD Unavailable [phone] Zack Santiago MD Unavailable [phone] Donato Hale MD Unavailable Encounter Details Date Type Department Care Team (Late st Contact Info) Description 07/04/2018 Scanned Document [facility] [address] [place] [address] Latesha Lang APRN [address] [place] [address] Social History Tobacco Use Types [...] [facility] [address] [place] [id number] Latesha Lang APRN [address] [place] [address] documented as of this encounter Visit Diagnoses Not on filedocumented in this encounter Care Teams Plasterer Maintenance Relationship Specialty Start Date End Date Latesha Lang APRN [address] [place], [place] [phone] PCP - General Family Medicine 01/18/15 Audrey Farooq MD [address] [place] [address] Physician Ophthalmology 03/13/18 02/27/24 Katlin Rodriguez APRN [address] [facility] [address] [place] [address] Shroudman 03/13/18 02/27/24 Jorge Abreu MD [address] [place] [address] Physician Urology 03/13/18 02/27/24 Donato Hale MD [address] [place] [address] Bedspring Assembler Internal Medicine 03/13/18 11/15/22 Zack Santiago MD [address] [place] [address] Internal Medicine 11/24/21 11/15/22 Zack Santiago MD [address] [place] [address] Internal Medicine 11/24/21 02/27/24 Donato Hale MD [address] [place] [address] Bedspring Assembler Internal Medicine 11/16/22 documented as of this encounter
--- OUTSIDE RECORDS SUMMARY | 2025-03-18 21:38 | XMS_ITS | Clinical Summary ---
Author Organization [facility] Address [address] [place] [address] Care Team Providers Care Commercial Tire Service Technician Name Role Phone LangWiltonbruno RUBIO Primary Care Provider [phone] Donato Hale MD Unavailable [phone] Allergies Active Allergy Reactions Criticality Noted Date Comments Casein Nausea And Vomiting Low 08/08/2019 Gluten Diarrhea Low 06/07/2020 Milk Protein GI Intolerance/Nausea/Vomiting Low Tilactase Diarrhea Low 06/07/2020 Medications lisinopril (PRINIVIL,ZeSTRIL) 40 MG tablet Take 1 tablet (40 mg total) by mouth daily. Active clopidogrel (PLAVIX) 75 MG tabletIndications:Vagina l vault prolapse,Cystocele, midline,Rectocele,Female stress incontinence Take 1 tablet (75 mg total) by mouth daily. 05/29/19 19 Active rosuvastatin (CRESTOR) 20 MG tablet 06/07/19 22 Active SUPER B COMPLEX/C PO Take 1 tablet by mouth. Active MULTIPLE VITAMIN PO Take 1 tablet by mouth. Active amLODIPine (NORVASC) 10 MG tablet Take 1 tablet (10 mg total) by mouth daily. Active Lancets (onetouch ultrasoft) lancetsIndications:Type 2 diabetes mellitus without complication, unspecified whether terminal block assembler insulin use USE TO TEST THREE TIMES A DAY 90 lancet(s) 1 03/31/20 24 Active glucose blood (OneTouch Ultra Test) test stripIndications:Type 2 diabetes mellitus without complication, unspecified whether chcf insulin use USE TO TEST BLOOD SUGAR DAILY 100 strip 2 03/31/20 24 Active Choline Fenofibrate (Fenofibric Acid) 135 MG Capsule Delayed ReleaseIndications:Famil ial hypercholesterolemia TAKE ONE CAPSULE BY MOUTH EVERY DAY 90 capsule 3 08/08/19 25 Active doxazosin (CARDURA) 1 MG tablet Take 1 tablet (1 mg total) by mouth. 12/16/19 25 026 Active Synthroid 25 MCG tabletIndications:Acquir ed hypothyroidism Take 1 tablet (25 mcg total) by mouth every morning. 90 tablet 3 01/02/20 25 Active fluticasone (FloNASE) 50 mcg/spray nasal sprayIndications:Nasal congestion 1 spray into each nostril nightly. 1 each 1 01/02/20 25 025 Active hydroCHLOROthiazide (HYDRODIURIL) 25 MG tabletIndications:Hypert ension due to endocrine disorder TAKE ONE TABLET BY MOUTH EVERY DAY 90 tablet 3 01/24/20 25 Active Active Problems Problem Noted Date Diagnosed [...] Encounters Date Type Department Care Team Description 02/10/2025 10:30 AM EDT - 02/10/2025 11:59 PM EDT Hospital Encounter [facility] Radiology [address] [facility] [place] [address] Latesha Lang APRN Hypertension due to endocrine disorder ; Type 2 diabetes mellitus with stage 2 chronic kidney disease, without long-term current use of insulin (HCC); Postmenopausal Discharge Disposition: Home or Self Care 02/04/2025 Scanned Document [facility] [place] [address] [place] [address] Latesha Lang APRN 01/27/2025 Telephone [facility] Healthy Age [address] [place] [address] EstradaDiamondz P 01/23/2025 Refill [facility] [place] [address] [place] [address] Latesha Lang APRN Hypertension due to endocrine disorder 01/20/2025 Scanned Document [facility] [address] [place] [address] Latesha Lang APRN 01/20/2025 Telephone [facility] [address] [place] [address] Latesha Lang APRN Other (Blood pressure readings) 01/07/2025 Telephone [facility] Healthy Age [address] [place] [address] Estrada, Ghada P 01/02/2025 Orders Only [facility] [place] [address] [place] [address] Latesha Lang APRN Dysuria (Primary Dx) 01/02/2025 Telephone [facility] [place] [address] [place] [address] Latesha Lang APRN Medical Complaint 01/01/2025 9:30 AM EDT [facility] [address] [place] [address] Lang, Latesha, DUST MILL OPERATOR Hypertension due to endocrine disorder (Primary Dx); Memory loss; Type 2 diabetes mellitus with stage 2 chronic kidney disease, without long-term current use of insulin (HCC); Postmenopausal; Acquired hypothyroidism ; Nasal congestion 01/01/2025 Travel 12/27/2024 Refill [facility] [place] [address] [place] [address] Latesha Lang, DUST MILL OPERATOR Acquired hypothyroidism 12/22/2024 Telephone [facility] [place] [address] [place] [address] Latesha Lang APRN 12/22/2024 Nurse Triage [place] [address] [place] [address] Latesha Lang, JOANNE from Last 3 Months Immunizations Immunization Administration [...] Description 04/27/2025 9:30 AM EST Office Visit [address] [address] Latesha Lang APRN [address] [place], [place] [id number] Health Maintenance Due Date Last Done Comments Advance Care Planning 1940 Physical 1960 Zoster (Shingles) Vaccine (1 of 2) 1992 RSV Vaccine 50 years and older and Patients (1 - 1-dose 75+ series) 2017 Annual Wellness Visit 07/04/2019 07/03/2018, 017 Ophthalmology Exam 05/30/2020 05/30/2019 Influenza Vaccine 12/26/2024 02/28/2024, , 03/23/2022, Additional history exists COVID-19 Vaccine ( season) 2025 09/21/2021, 04/29/2021, 07/06/2020, Additional history exists Foot Exam 02/27/2025 02/28/2024, 04/28, 12/07/2020, Additional history exists Hemoglobin A1C 04/29/2025 10/28/2024, 07/2023, 11/16/2022, Additional history exists Creatinine with GFR 11/04/2025 11/04/2024, 11/22/2021, 10/06/2021, Additional history exists Lipid Panel 11/04/2025 11/04/2024, 11/25, 12/07/2020, Additional history exists Microalbumin/Creatinine Ratio Urine 01/01/2026 01/01/2025, 02/28/2024, 08/15/2022, Additional history exists DXA Bone Density (Females,Ages 65 and older) 02/10/2027 02/10/2025, 02/17/2016, 02/17/2016 DTaP/Tdap/Td Vaccines (3 - Tdap) 03/25/2032 03/25/2022, 01/10/2014 Pneumococcal Vaccines 50+ Completed 2015, 07/24/2013, 03/09/2010 Hepatitis B Vaccines Aged Out No long er eligible based on patient's age to complete this topic Medical Devices Implanted Type Area Manager Risk Management Device Identifier Shelf Expiration Date Model / Serial / Lot [id number] Lens Iol +22 Mc Posterior Chamber 1 Pc Fld Uv Blue Light - [id number] Implanted:Qty: 1 on 02/03/2020 by Rohini Galindo MD at [facility] [place], [place] [employer] [id number] 0 / [id number] / [id number] Lens Iol +21.5 Mc Posterior Chamber 1 Pc Fld Uv Blue Light - [id number] Implanted:Qty: 1 on 03/09/2020 by Rohini Galindo MD at [facility] [place], [place] [employer] ACU0T0.21 5 / [id number] / Sling Pubourethral Blue Mesh Clr Desara 1000um Taper Pp - [id number] Implanted:Qty: 1 on 05/24/2018 by Delroy Negro MD at [facility] Urogyn N/A: Vagina [employer] 12/19/2020 [id number] / / [01] [id number]] [id number] ] 2017-11-26 5[17] 2020-11-26 5 Procedures Procedure Name Priority Date/Time Associated Diagnosis Comments DEXA BONE DENSITY AXIAL SKELETON, 1 OR MORE SITES Routine 02/10/2025 12:29 PM EDT 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, without long-term current use of insulin (HCC) Postmenopausal MICROALBUMIN, CREATININE, URINE, RANDOM Routine 01/01/2025 10:26 AM EDT 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, without long-term current use of insulin (HCC) LIPID PANEL REFLEX DIRECT LDL Routine 11/04/2024 6:22 AM EDT Familial hypercholesterolemia COMPREHENSIVE METABOLIC PANEL Routine 11/04/2024 6:22 AM EDT 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, without long-term current use of insulin (HCC) POCT GLYCOSYLATED HEMOGLOBIN (HGB A1C) Routine 10/28/2024 11:56 AM EDT Type 2 diabetes mellitus with stage 2 chronic kidney disease, without long-term current use of insulin (HCC) from Last 3 Months or Most Recently Relevant to Health Maintenance Results * DEXA Bone Density axial skeleton, 1 or more sites (02/10/2025 12:29 PM EDT) Anatomical Region Laterality Modality Digital Radiogra phy 02/10/2025 4:09 PM EDT Impressions 02/10/2025 4:20 PM EDT Findings as described above are compatible with osteopenia according to the bone mineral density in the dual total femur and in the dual femur femoral neck. The FRAX tool* was utilized to estimate the 10-year probability of fracture. There is a 12.9% risk of a major osteoporotic fracture (Rx suggest if >= 20%) and a 3.6% risk of a hip fracture (Rx suggest if >= 3%). *The FRAX index is an assessment tool developed by the WHO utilizing the femoral neck density along with other clinical risk factors to estimate future fracture risk. Please note that the estimated risk is not accurate in patients who are on active or recent pharmacologic therapy. ISCD/WHO Criteria: For menopausal, perimenopausal and men older than 50: Normal = T-score greater than or equal to -1.0 SD Osteopenia = T-score greater than -2.5 SD and less than -1.0 SD Osteoporosis = T-score less than or equal to -2.5 SD For children, premenopausal women and men less than or equal to 50: Normal = Z score greater than -2.0 SD Low Bone Mass = Z score less than or equal to -2.0 SD Gilberto Henderson M.D. Narrative 02/10/2025 4:20 PM EDT STUDY: DEXA BONE DENSITY SCAN REASON FOR EXAM: screening. 84-year-old postmenopausal female. TECHNIQUE: The bone mineral density is measured in the lumbar spine and bilateral hips using DXA. Interpretation is based on the criteria from the International Society for Clinical Densitometry. Imaging is performed on a [employer] densitometry unit. COMPARISON: None. FINDINGS: In the lumbar spine from L1 to L4 the bone mineral density measures 1.097 g/cm2. This corresponds to a T-score of -0.8 when compared to a young adult. The dual femur total bone mineral density measures 0.865 g/cm2. This corresponds to a T-score of -1.1 when compared to a young adult. The dual femur femoral neck bone mineral density measures 0.818 g/cm2. This corresponds to a T-score of -1.6 when compared to a young adult. The FRAX tool* was utilized to estimate the 10-year probability of fracture. There is a 12.9% risk of a major osteoporotic fracture (Rx suggest if >= 20%) and a 3.6% risk of a hip fracture (Rx suggest if >= 3%). *The FRAX index is an assessment tool developed by the WHO utilizing the femoral neck density along with other clinical risk factors to estimate future fracture risk. Please note that the estimated risk is not accurate in patients who are on active or recent pharmacologic therapy. Procedure Note Gilberto Henderson MD - 02/10/2025 STUDY: DEXA BONE DENSITY SCAN REASON FOR EXAM: screening. 84-year-old postmenopausal female. TECHNIQUE: The bone mineral density is measured in the lumbar spine andbilateral hips using DXA. Interpretation is based on the criteria from theInternational Society for Clinical Densitometry. Imaging is performed on 360T densitometry unit. COMPARISON: None. FINDINGS: In the lumbar spine from L1 to L4 the bone mineral density measures 1.097g/cm2. This corresponds to a T-score of -0.8 when compared to a youngadult. The dual femur total bone mineral density measures 0.865 g/cm2. Thiscorresponds to a T-score of -1.1 when compared to a young adult. The dual femur femoral neck bone mineral density measures 0.818 g/cm2.This corresponds to a T-score of -1.6 when compared to a young adult. The FRAX tool* was utilized to estimate the 10-year probability offracture. There is a 12.9% risk of a major osteoporotic fracture (Rxsuggest if >= 20%) and a 3.6% risk of a hip fracture (Rx suggest if >=3%). *The FRAX index is an assessment tool developed by the WHO utilizing thefemoral neck density along with other clinical risk factors to estimatefuture fracture risk. Please note that the estimated risk is not accuratein patients who are on active or recent pharmacologic therapy. IMPRESSION: Findings as described above are compatible with osteopenia according tothe bone mineral density in the dual total femur and in the dual femurfemoral neck. The FRAX tool* was utilized to estimate the 10-year probability offracture. There is a 12.9% risk of a major osteoporotic fracture (Rxsuggest if >= 20%) and a 3.6% risk of a hip fracture (Rx suggest if >=3%). *The FRAX index is an assessment tool developed by the WHO utilizing thefemoral neck density along with other clinical risk factors to estimatefuture fracture risk. Please note that the estimated risk is not accuratein patients who are on active or recent pharmacologic therapy. ISCD/WHO Criteria: For menopausal, perimenopausal and men older than 50: Normal = T-score greater than or equal to -1.0 SD Osteopenia = T-score greater than -2.5 SD and less than -1.0 SD Osteoporosis = T-score less than or equal to -2.5 SD For children, premenopausal women and men less than or equal to 50: Normal = Z score greater than -2.0 SD Low Bone Mass = Z score less than or equal to -2.0 SD Gilberto Henderson M.D. us Latesha Lang APRN IMG DXA ORDERABLES Final Result * (ABNORMAL) Microalbumin, Creatinine, Urine, Random (No IB msg for normal - MG/PACT) (01/01/2025 10:26 AM EDT) Creatinine, Urine, Random 122 20 - 275 mg/dL [facility] Microalbumin, Urine, Random 7.7 See Note: mg/dL [facility] Comment: Reference Range: Reference Range Not established Microalbumin/Creat inine Ratio 63(H) <30 mg/g creat [facility] Comment: The ADA defines abnormalities in albumin [...] 01/02/2025 6:58 AM EDT us Latesha Lang DUST MILL OPERATOR URINE ORDERABLES Final Result [facility] [address] [place] [phone] * Lipid Panel Reflex Direct LDL (11/04/2024 6:22 AM EDT) Cholesterol, Total 135 <200 mg/dL [facility] Cholesterol, HDL 50 > OR = 50 mg/dL [facility] Triglycerides 110 <150 mg/dL [facility] LDL Cholesterol 65 mg/dL (calc) [facility] Comment: Reference range: <100 Desirable range <100 mg/dL for primary prevention; <70 mg/dL for patients with CHD or diabetic patients with > or = 2 CHD risk factors. LDL-C is now calculated using the Reyes calculation, which is a validated novel method providing better accuracy than the Friedewald equation in the estimation of LDL-C. Jignesh SS et al. AFSHIN. 2013;310(70): 2320-8947 (http://education.Talicious/faq/KBW430) Cholesterol/HDL Ratio 2.7 <5.0 (calc) [facility] Non HDL Chol. (LDL+VLDL) 85 <130 mg/dL (calc) [facility] Comment: For patients with diabetes plus 1 major ASCVD risk factor, treating to a non-HDL-C goal of <100 mg/dL (LDL-C of <70 mg/dL) is considered a therapeutic option. Blood Blood specimen / Unknown 11/04/2024 6:22 AM EDT 11/04/2024 6:22 AM EDT Narrative [facility] - 11/05/2024 12:34 AM EDT FASTING:YES FASTING: YES Sailaja Dudley DUST MILL OPERATOR LAB BLOOD ORDERABLES Fin al Result [facility] [address] [place] [phone] * (ABNORMAL) Comprehensive Metabolic Panel (11/04/2024 6:22 AM EDT) Pathologist [facility] Glucose 99 65 - 99 mg/dL [facility] Comment: Fasting reference interval Blood Urea Nitrogen (BUN) 27(H) 7 - 25 mg/dL [facility] Creatinine 1.04(H) 0.60 - 0.95 mg/dL [facility] Creatinine w/ eGFR 54(L) > OR = 60 mL/min/1. 73m2 [facility] BUN/Creatinine Ratio 26(H) 6 - 22 (calc) [facility] Sodium 142 135 - 146 mmol/L [facility] Potassium 3.8 3.5 - 5.3 mmol/L [facility] Chloride 104 98 - 110 mmol/L [facility] CO2 29 20 - 32 mmol/L [facility] Calcium 9.4 8.6 - 10.4 mg/dL [facility] Protein, Total 6.2 6.1 - 8.1 g/dL [facility] Albumin 4.2 3.6 - 5.1 g/dL [facility] Globulin 2.0 1.9 - 3.7 g/dL (calc) [facility] Albumin/Globulin Ratio 2.1 1.0 - 2.5 (calc) [facility] Bilirubin, Total 0.6 0.2 - 1.2 mg/dL [facility] Alkaline Phosphatase 47 37 - 153 U/L [facility] Aspartate Aminotrans (AST) 24 10 - 35 U/L [facility] Alanine Aminotrans (ALT) 17 6 - 29 U/L [facility] Blood Blood specimen / Unknown 11/04/2024 6:22 AM EDT 11/04/2024 6:22 AM EDT Narrative [facility] - 11/05/2024 12:34 AM EDT FASTING:YES FASTING: YES Sailaja Dudley APRN LAB BLOOD ORDERABLES Fin al Result Performing Organization Address City/State/[facility] Co de Phone Number [employer] [address] [place] [phone] * POCT A1C (10/28/2024 11:56 AM EDT) Hemoglobin A1C 5.3 4.0 - 6.0 % Lot Number [id number] Computer Science Intern Pass Pass Blood 10/28/2024 11:5 6 AM EDT Sailaja Dudley DUST MILL OPERATOR POINT OF CARE TEST ORDER ALBERTO Final Result from Last 3 Months or Most Recently Relevant to Health Maintenance Insurance [facility] MEDICARE MEDICARE PART A & B [facility] MEDICARE Advance Directives * Full Code (Latest Code Status on File) Date Activated Date Inactivated Comments 05/24/2018 4:38 PM 02/03/2020 11:48 AM * Full Code Date Activated Date Inactivated Comments 05/24/2018 8:56 AM 05/24/2018 4:38 PM Care Teams Commercial Tire Service Technician Relationship Specialty Start Date End Date Precious LateshaJOANNE carr [address] [place] [address] PCP - General Family Medicine 01/18/15 Donato Hale MD [address] [place] [address] Bench Assembler Internal Medicine 11/16/22
--- OUTSIDE RECORDS SUMMARY | 2025-03-18 21:38 | XMS_ITS | Encounter Summary ---
Author Organization [facility] Address [address] [place] [address] Care Team Providers Care Paper Finisher Name Role Phone Precious Latesha RUBIO Primary Care Provider [phone] Audrey Farooq MD Unavailable Katlin Rodriguez APRN Unavailable [phone] Jorge Abreu MD Unavailable [phone] Donato Hale MD Unavailable Zack Santiago MD Unavailable [phone] Zack Santiago MD Unavailable Donato Hale MD Unavailable Encounter Details Date Type Department Care Team (Late st Contact Info) Description 12/27/2014 Scanned Document [address] [address] Provider, Generic Social History Tobacco [...] 9:30 AM EST Office Visit [facility] [employer] [address] [place] [address] Latesha Lang APRN [address] [facility], [place] [id number] documented as of this encounter Procedures Procedure Name Priority Date/Time Associated Diagnosis Comments LAB RESULT 12/27/2014 documented in this encounter Results * LAB RESULT (12/27/2014) Narrative 12/27/2014 Ordered by an unspecified provider. us Generic Provider HX AMB PROCEDURES Final Result documented in this encounter Visit Diagnoses Not on filedocumented in this encounter Care Teams Paper Finisher Relationship Specialty Start Date End Date Latesha Lang APRN [address] [facility], [place] [id number] PCP - General Family Medicine 01/18/15 Audrey Farooq MD [address] [place] [address] Physician Ophthalmology 03/13/18 02/27/24 Katlin Rodriguez APRN [address] [place] [address] Independent Beauty Consultant 03/13/18 02/27/24 Jorge Abreu MD [address] [place] [address] Physician Urology 03/13/18 02/27/24 Donato Hale MD [address] [place], [place] [address] [address] Conversion Worker Internal Medicine 03/13/18 11/15/22 Zack Santiago MD [address] [place] [address] Internal Medicine 11/24/21 11/15/22 Zack Santiago MD [address] [place] [address] Internal Medicine 11/24/21 02/27/24 Donato Hale MD [address] [place] [address] Conversion Worker Internal Medicine 11/16/22 documented as of this encounter
--- OUTSIDE RECORDS SUMMARY | 2025-03-18 21:38 | XMS_ITS | Encounter Summary ---
Author Organization [facility] Address [address] [place] [address] Care Team Providers Care Supervisor Shaving And Splitting Name Role Phone Precious Latesha RUBIO Primary Care Provider [phone] Audrey Farooq MD Unavailable [phone] Katlin Rodriguez APRN Unavailable [phone] Jorge Abreu MD Unavailable Donato Hale MD Unavailable [phone] Zack Santiago MD Unavailable [phone] Zack Santiago MD Unavailable [phone] Donato Hale MD Unavailable Encounter Details Date Type Department Care Team (Late st Contact Info) Description 09/19/2018 Scanned Document [address] [address] Provider, Generic Social History Tobacco [...] Description 04/27/2025 9:30 AM EST [facility] [address] [facility] [place] [phone] Latesha Lang APRN [address] [facility] [place] [address] documented as of this encounter Visit Diagnoses Not on filedocumented in this encounter Care Teams Supervisor Shaving And Splitting Relationship Specialty Start Date End Date Latesha Lang APRN [address] [facility], [place] [id number] PCP - General Family Medicine 01/18/15 Audrey Farooq MD [facility] [place] [place] [address] Physician Ophthalmology 03/13/18 02/27/24 Katlin Rodriguez APRN [address] [place] [address] Lan Specialist 03/13/18 02/27/24 Jorge Abreu MD [address] [place] [address] Physician Urology 03/13/18 02/27/24 Donato Hale MD [address] [place] [address] Momd Teacher Internal Medicine 03/13/18 11/15/22 Zack Santiago MD [address] [email or web address] [address] [place] [address] Internal Medicine 11/24/21 11/15/22 Zack Santiago MD [address] [place] [address] Internal Medicine 11/24/21 02/27/24 Donato Hale MD [address] [place] [address] Momd Teacher Internal Medicine 11/16/22 documented as of this encounter
--- OUTSIDE RECORDS SUMMARY | 2025-03-18 21:38 | XMS_ITS | Encounter Summary ---
Author Organization [facility] Address [address] [place] [address] Care Team Providers Care Auger Supervisor Name Role Phone Latesha Lang APRN Primary Care Provider [phone] Donato Hale MD Unavailable [phone] Encounter Details Date Type Department Care Team (Late Contact Info) Description 01/20/2025 Scanned Document [address] [address] Latesha Lang APRN [facility] [place] [address] Social History Tobacco Use Types Packs/Day Years [...] Description 04/27/2025 9:30 AM EST Office [facility] [place] [address] [place] [address] Latesha Lang APRN [address] [place] [address] documented as of this encounter Visit Diagnoses Not on filedocumented in this encounter Care Teams Auger Supervisor Relationship Specialty Start Date End Date Latesha Lang APRN [address] [facility], [place] [id number] PCP - General Family Medicine 01/18/15 Donato Hale MD [address] [place] [address] Interventional Physiatrist Internal Medicine 11/16/22 documented as of this encounter
--- OUTSIDE RECORDS SUMMARY | 2025-03-18 21:38 | XMS_ITS | Encounter Summary ---
Author Organization [facility] Address [address] [place] [address] Care Team Providers Care Snow Remover Name Role Phone Latesha Lang APRN Primary Care Provider [phone] Audrey Farooq MD Unavailable Katlin Rodriguez APRN Unavailable Jorge Abreu MD Unavailable Donato Hale MD Unavailable Zack Santiago MD Unavailable [phone] Zack Santiago MD Unavailable Donato Hale MD Unavailable [phone] Encounter Details Date Type Department Care Team (Late st Contact Info) Description 07/04/2018 Scanned Document [facility] [address] [place] [address] Latesha Lang APRN [address] [place] [address] Social History Tobacco Use Types [...] Office Visit [facility] [address] [place] [address] Latesha Lang APRN [address] [place] [address] documented as of this encounter Visit Diagnoses Not on filedocumented in this encounter Care Teams Snow Remover Relationship Specialty Start Date End Date Latesha Lang APRN [address] [place], [place] [id number] PCP - General Family Medicine 01/18/15 Audrey Farooq MD [address] [place] [address] Physician Ophthalmology 03/13/18 02/27/24 Katlin Rodriguez APRN 100 [facility] [address] [place] [address] Plastic Parts Fabricator Trimmer 03/13/18 02/27/24 Jorge Abreu MD [address] [place] [address] Physician Urology 03/13/18 02/27/24 Donato Hale MD [address] [place] [address] Signal Manager Internal Medicine 03/13/18 11/15/22 Zack Santiago MD [address] [place] [address] Internal Medicine 11/24/21 11/15/22 Zack Santiago MD [address] [facility] [address] [place] [address] Internal Medicine 11/24/21 02/27/24 Donato Hale MD [address] [facility] [address] [place] [address] Signal Manager Internal Medicine 11/16/22 documented as of this encounter
--- OUTSIDE RECORDS SUMMARY | 2025-03-18 21:38 | XMS_ITS | Encounter Summary ---
Author Organization [facility] Address [address] [place] [address] Care Team Providers Care Corporate Tax Manager Name Role Phone Latesha Lang APRN Primary Care Provider [phone] Donato Hale MD Unavailable [phone] Encounter Details Date Type Department Care Team (Late Contact Info) Description 03/14/2024 Scanned Document [address] [address] Latesha Lang APRN [facility] [place] [address] Social History Tobacco Use Types Packs/Day Years [...] Description 04/27/2025 9:30 AM EST Office Visit [facility] [place] [address] [place] [address] Latesha Lang APRN [address] [place] [address] documented as of this encounter Visit Diagnoses Not on filedocumented in this encounter Care Teams Corporate Tax Manager Relationship Specialty Start Date End Date Latesha Lang APRN 1244 [facility], [place] [phone] PCP - General Family Medicine 01/18/15 Donato Hale MD 1244 [place] [address] Mergers And Acquisitions Manager Internal Medicine 11/16/22 documented as of this encounter
--- OUTSIDE RECORDS SUMMARY | 2025-03-18 21:39 | XMS_ITS | Encounter Summary ---
Author Organization [facility] Address [address] [place] [address] Care Team Providers Care Child Care Giver Name Role Phone Precious Latesha RUBIO Primary Care Provider [phone] Audrey Farooq MD Unavailable Katlin Rodriguez APRN Unavailable [phone] Jorge Abreu MD Unavailable Donato Hale MD Unavailable Zack Santiago MD Unavailable [phone] Zack Santiago MD Unavailable [phone] Donato Hale MD Unavailable Encounter Details Date Type Department Care Team (Late st Contact Info) Description 03/12/2018 Scanned Document [address] [address] Provider, Generic Social History Tobacco [...] Description 04/27/2025 9:30 AM EST [facility] 1244 [place] [address] Latesha Lang APRN 1244 [place] [address] documented as of this encounter Visit Diagnoses Not on filedocumented in this encounter Care Teams Child Care Giver Relationship Specialty Start Date End Date Latesha Lang APRN 1244 [facility], [place] [phone] PCP - General Family Medicine 01/18/15 Audrey Farooq MD [facility] [place] [address] Physician Ophthalmology 03/13/18 02/27/24 Katlin Rodriguez APRN [address] [place] [address] Valve Steamer 03/13/18 02/27/24 Jorge Abreu MD [address] [place] [address] Physician Urology 03/13/18 02/27/24 Donato Hale MD [address] [place] [address] Transportation Planning Engineer Internal Medicine 03/13/18 11/15/22 Zack Santiago MD [address] [employer] [address] [place] [address] Internal Medicine 11/24/21 11/15/22 Zack Santiago MD [address] [employer] [address] [place] [address] Internal Medicine 11/24/21 02/27/24 Donato Hale MD [address] [employer] [address] [place] [address] Transportation Planning Engineer Internal Medicine 11/16/22 documented as of this encounter
--- OUTSIDE RECORDS SUMMARY | 2025-03-18 21:39 | XMS_ITS | Encounter Summary ---
Author Organization [facility] Address [address] [place] [address] Care Team Providers Care Research Assistant Member Name Role Phone Precious Latesha RUBIO Primary Care Provider Audrey Farooq MD Unavailable Katlin Rodriguez APRN Unavailable [phone] Jorge Abreu MD Unavailable Donato Hale MD Unavailable Zack Santiago MD Unavailable [phone] Zack Santiago MD Unavailable [phone] Donato Hale MD Unavailable [phone] Encounter Details Date Type Department Care Team (Late st Contact Info) Description 03/27/2016 Scanned Document [address] [address] Provider, Generic Social History Tobacco [...] Description 04/27/2025 9:30 AM EST [facility] 1244 [place] [address] Latesha Lang APRN 1244 [place] [address] documented as of this encounter Visit Diagnoses Not on filedocumented in this encounter Care Teams Research Assistant Member Relationship Specialty Start Date End Date Latesha Lang APRN 1244 [facility], [place] [phone] PCP - General Family Medicine 01/18/15 Audrey Farooq MD [facility]4 [place] [address] Physician Ophthalmology 03/13/18 02/27/24 Katlin Rodriguez APRN [address] [place] [address] Residence Supervisor 03/13/18 02/27/24 Jorge Abreu MD [address] [place] [address] Physician Urology 03/13/18 02/27/24 Donato Hale MD [address] [place] [address] Counsellor Internal Medicine 03/13/18 11/15/22 Zack Santiago MD [address] [employer] [address] [place] [address] Internal Medicine 11/24/21 11/15/22 Zack Santiago MD [address] [employer] [address] [place] [address] Internal Medicine 11/24/21 02/27/24 Donato Hale MD [address] [employer] [address] [place] [address] Counsellor Internal Medicine 11/16/22 documented as of this encounter
--- OUTSIDE RECORDS SUMMARY | 2025-03-18 21:39 | XMS_ITS | Encounter Summary ---
Author Organization [facility] Address [address] [place] [address] Care Team Providers Care Bottling Machine Operator Name Role Phone Precious Latesha RUBIO Primary Care Provider [phone] Audrey Farooq MD Unavailable Katlin Rodriguez APRN Unavailable [phone] Jorge Abreu MD Unavailable Donato Hale MD Unavailable Zack Santiago MD Unavailable [phone] Zack Santiago MD Unavailable [phone] Donato Hale MD Unavailable Encounter Details Date Type Department Care Team (Late st Contact Info) Description 03/05/2017 Scanned Document [address] [address] Provider, Generic Social History Tobacco [...] Description 04/27/2025 9:30 AM EST Office Visit [facility] 1244 [place] [address] Latesha Lang APRN 1244 [facility], [place] [id number] documented as of this encounter Procedures Procedure Name Priority Date/Time Associated Diagnosis Comments LAB RESULT 03/05/2017 documented in this encounter Results * LAB RESULT (03/05/2017) Narrative 03/05/2017 Ordered by an unspecified provider. us Generic Provider HX AMB PROCEDURES Edited Result - Final documented in this encounter Visit Diagnoses Not on filedocumented in this encounter Care Teams Bottling Machine Operator Relationship Specialty Start Date End Date Latesha Lang APRN 1244 [place] [address] PCP - General Family Medicine 01/18/15 Audrey Farooq MD 1244 [place] [address] Physician Ophthalmology 03/13/18 02/27/24 Katlin Rodriguez APRN [address] [address] Loan Originator 03/13/18 02/27/24 Jorge Abreu MD [address] [place] [address] Physician Urology 03/13/18 02/27/24 Donato Hale MD [address] [place] [address] Health Policy Manager Internal Medicine 03/13/18 11/15/22 Zack Santiago MD [address] [employer] [address] [place] [address] Internal Medicine 11/24/21 11/15/22 Zack Santiago MD [address] [employer] [address] [place] [address] Internal Medicine 11/24/21 02/27/24 Donato Hale MD [address] [employer] [facility] [employer] [address] [place] [address] Health Policy Manager Internal Medicine 11/16/22 documented as of this encounter
--- OUTSIDE RECORDS SUMMARY | 2025-03-18 21:39 | XMS_ITS | Encounter Summary ---
Author Organization [facility] Address [address] [place] [address] Care Team Providers Care Research Associate Name Role Phone LangWiltonbruno RUBIO Primary Care Provider Audrey Farooq MD Unavailable Katlin Rodriguez APRN Unavailable [phone] Jorge Abreu MD Unavailable Donato Hale MD Unavailable Zack Santiago MD Unavailable [phone] Zack Santiago MD Unavailable [phone] Donato Hale MD Unavailable [phone] Encounter Details Date Type Department Care Team (Late st Contact Info) Description 05/25/2021 Scanned Document [address] [address] Urgent Care, Scan Social History [...] Description 04/27/2025 9:30 AM EST Office Visit [facility] [address] [place] [address] Latesha Lang APRN [address] [place] [address], [place] [id number] documented as of this encounter Visit Diagnoses Not on filedocumented in this encounter Care Teams Research Associate Relationship Specialty Start Date End Date Latesha Lang APRN [facility], [place] [phone] PCP - General Family Medicine 01/18/15 Audrey Farooq MD [address] [place] [address], [place] [id number] Physician Ophthalmology 03/13/18 02/27/24 Katlin Rodriguez APRN [address] [place] [address] Optical Lens Manufacturing Tech 03/13/18 02/27/24 Jorge Abreu MD [address] [place] [address] Physician Urology 03/13/18 02/27/24 Donato Hale MD [address] [place], [place] [address] Double Head Machine Operator Internal Medicine 03/13/18 11/15/22 Zack Santiago MD 100 [facility] [address] [address] Internal Medicine 11/24/21 11/15/22 Zack Santiago MD 100 [facility] [address] [address] Internal Medicine 11/24/21 02/27/24 Donato Hale MD 100 [facility] [address] [address] Double Head Machine Operator Internal Medicine 11/16/22 documented as of this encounter
--- OUTSIDE RECORDS SUMMARY | 2025-03-18 21:39 | XMS_ITS | Encounter Summary ---
Author Organization [facility] Address [address] [place] [address] Care Team Providers Care Manager Application Name Role Phone Precious Latesha RUBIO Primary Care Provider Audrey Farooq MD Unavailable Katlin Rodriguez APRN Unavailable [phone] Jorge Abreu MD Unavailable Donato Hale MD Unavailable Zack Santiago MD Unavailable [phone] Zack Santiago MD Unavailable [phone] Donato Hale MD Unavailable [phone] Encounter Details Date Type Department Care Team (Late st Contact Info) Description 09/01/2016 Scanned Document [address] [address] Provider, Generic Social History Tobacco [...] [facility] [place] [address] [place] [address] Latesha Lang APRN 1244 [facility] [place] [phone] documented as of this encounter Procedures Procedure [...] on filedocumented in this encounter Care Teams Manager Application Relationship Specialty Start Date End Date Latesha Lang APRN [address] [place], [place] [phone] PCP - General Family Medicine 01/18/15 Audrey Farooq MD [address] [place] [address] Physician Ophthalmology 03/13/18 02/27/24 Katlin Rodriguez APRN 100 [facility] [address] [place] [address] Supervisor Instant Potato Processing 03/13/18 02/27/24 Jorge Abreu MD [address] [place] [address] [address] [place] [address] Physician Urology 03/13/18 02/27/24 Donato Hale MD 360 [facility] [address] [place] [address] Implementation Project Coordinator Internal Medicine 03/13/18 11/15/22 Zack Santiago MD [address] [place] [address] Internal Medicine 11/24/21 11/15/22 Zack Santiago MD [address] [place] [address] Internal Medicine 11/24/21 02/27/24 Donato Hale MD [address] [place] [address] Implementation Project Coordinator Internal Medicine 11/16/22 documented as of this encounter
--- OUTSIDE RECORDS SUMMARY | 2025-03-18 21:39 | XMS_ITS | Encounter Summary ---
Author Organization [facility] Address [address] [place] [address] Care Team Providers Care Transportation Security Officer Name Role Phone Precious Latesha RUBIO Primary Care Provider Audrey Farooq MD Unavailable Katlin Rodriguez APRN Unavailable [phone] Jorge Abreu MD Unavailable Donato Hale MD Unavailable Zack Santiago MD Unavailable [phone] Zack Santiago MD Unavailable [phone] Donato Hale MD Unavailable [phone] Encounter Details Date Type Department Care Team (Late st Contact Info) Description 10/15/2017 Scanned Document [address] [address] Provider, Generic Social History Tobacco [...] Description 04/27/2025 9:30 AM EST [facility] 1244 [place] [address] Latesha Lang APRN 1244 [place] [address] documented as of this encounter Visit Diagnoses Not on filedocumented in this encounter Care Teams Transportation Security Officer Relationship Specialty Start Date End Date Latesha Lang APRN 1244 [facility], [place] [phone] PCP - General Family Medicine 01/18/15 Audrey Farooq MD [facility]4 [place] [address] Physician Ophthalmology 03/13/18 02/27/24 Katlin Rodriguez APRN [address] [place] [address] Electrical Engineering Technologist 03/13/18 02/27/24 Jorge Abreu MD [address] [place] [address] Physician Urology 03/13/18 02/27/24 Donato Hale MD [address] [place] [address] Rougher Merchant Mill Internal Medicine 03/13/18 11/15/22 Zack Santiago MD [address] [employer] [address] [place] [address] Internal Medicine 11/24/21 11/15/22 Zack Santiago MD 100 [employer] [address] [place] [address] Internal Medicine 11/24/21 02/27/24 Donato Hale MD 100 [employer] [address] [place] [address] Rougher Merchant Mill Internal Medicine 11/16/22 documented as of this encounter
--- OUTSIDE RECORDS SUMMARY | 2025-03-18 21:39 | XMS_ITS | Encounter Summary ---
Author Organization [facility] Address [address] [place] [address] Care Team Providers Care Senior Technical Editor Name Role Phone Precious Latesha RUBIO Primary Care Provider Audrey Farooq MD Unavailable Katlin Rodriguez APRN Unavailable [phone] Jorge Abreu MD Unavailable Donato Hale MD Unavailable Zack Santiago MD Unavailable [phone] Zack Santiago MD Unavailable [phone] Donato Hale MD Unavailable [phone] Encounter Details Date Type Department Care Team (Late st Contact Info) Description 10/08/2016 Scanned Document [address] [address] Provider, Generic Social History Tobacco [...] Description 04/27/2025 9:30 AM EST [facility] 1244 [place] [address] Latesha Lang APRN 1244 [facility] [place] [address] documented as of this encounter Visit Diagnoses Not on filedocumented in this encounter Care Teams Senior Technical Editor Relationship Specialty Start Date End Date Latesha Lang APRN 1244 [facility], [place] [phone] PCP - General Family Medicine 01/18/15 Audrey Farooq MD [facility] [place] [address] Physician Ophthalmology 03/13/18 02/27/24 Katlin Rodriguez APRN [address] [place] [address] Supervisor Phosphoric Acid 03/13/18 02/27/24 Jorge Abreu MD [address] [place] [address] Physician Urology 03/13/18 02/27/24 Donato Hale MD [address] [place] [address] Dry Roller Internal Medicine 03/13/18 11/15/22 Zack Santiago MD 100 [employer] [address] [place] [address] Internal Medicine 11/24/21 11/15/22 Zack Santiago MD [address] [employer] [address] [place] [address] Internal Medicine 11/24/21 02/27/24 Donato Hale MD [address] [employer] [address] [place] [address] Dry Roller Internal Medicine 11/16/22 documented as of this encounter
--- OUTSIDE RECORDS SUMMARY | 2025-03-18 21:39 | XMS_ITS | Encounter Summary ---
Author Organization [facility] Address [address] [place] [address] Care Team Providers Care Grips Name Role Phone Precious Latesha RUBIO Primary Care Provider Audrey Farooq MD Unavailable [phone] Katlin Rodriguez APRN Unavailable [phone] Jorge Abreu MD Unavailable Donato Hale MD Unavailable Zack Santiago MD Unavailable [phone] Zack Santigao MD Unavailable [phone] Donato Hale MD Unavailable Encounter Details Date Type Department Care Team (Late st Contact Info) Description 03/01/2017 Scanned Document [address] [address] Provider, Generic Social History Tobacco [...] Description 04/27/2025 9:30 AM EST Office Visit [facility] 1244 [place] [address] Latesha Lang APRN 1244 [facility], [place] [phone] documented as of this encounter Procedures Procedure Name Priority Date/Time Associated Diagnosis Comments LAB RESULT 03/20/2017 documented in this encounter Results * LAB RESULT (03/20/2017) Narrative 03/20/2017 Ordered by an unspecified provider. us Generic Provider HX AMB PROCEDURES Edited Result - Final documented in this encounter Visit Diagnoses Not on filedocumented in this encounter Care Teams Grips Relationship Specialty Start Date End Date Latesha Lang APRN 1244 [facility], [place] [phone] PCP - General Family Medicine 01/18/15 Audrey Farooq MD 1244 [place] [address] Physician Ophthalmology 03/13/18 02/27/24 Katlin Rodriguez APRN 100 [facility] [address] [place] [address] Surgical First Assistant 03/13/18 02/27/24 Jorge Abreu MD [address] [place] [address] [address] [place] [address] Physician Urology 03/13/18 02/27/24 Donato Hale MD [address] [place] [address] [address] [place] [address] Substance Abuse Counselor Internal Medicine 03/13/18 11/15/22 Zack Santiago MD [address] [place] [address] Internal Medicine 11/24/21 11/15/22 Zack Santiago MD [address] [employer] [address] [place] [address] Internal Medicine 11/24/21 02/27/24 Donato Hale MD [address] [place] [address] Substance Abuse Counselor Internal Medicine 11/16/22 documented as of this encounter
--- OUTSIDE RECORDS SUMMARY | 2025-03-18 21:39 | XMS_ITS | Encounter Summary ---
Author Organization [facility] Address [address] [place] [address] Care Team Providers Care Barber Instructor Name Role Phone PreciousWiltonbruno RUBIO Primary Care Provider Audrey Farooq MD Unavailable Katlin Rodriguez APRN Unavailable [phone] Jorge Abreu MD Unavailable Donato Hale MD Unavailable Zack Santiago MD Unavailable [phone] Zack Santiago MD Unavailable [phone] Donato Hale MD Unavailable [phone] Encounter Details Date Type Department Care Team (Late st Contact Info) Description 08/30/2021 Scanned Document [address] [facility] [place] [address] Provider, Generic Social History Tobacco [...] Description 04/27/2025 9:30 AM EST Office Visit [facility] 1244 [place] [address] Latesha Lang APRN 1244 [facility], [place] [phone] documented as of this encounter Procedures Procedure [...] on filedocumented in this encounter Care Teams Barber Instructor Relationship Specialty Start Date End Date Latesha Lang APRN 1244 [place] [address] PCP - General Family Medicine 01/18/15 Audrey Farooq MD 1244 [place] [address] Physician Ophthalmology 03/13/18 02/27/24 Katlin Rodriguez APRN [address] [place] [address] Radiological Defense Officer 03/13/18 02/27/24 Jorge Abreu MD [address] [place] [address] [address] [place] [address] Physician Urology 03/13/18 02/27/24 Donato Hale MD [address] [place] [address] [address] [place] [address] Finance Mgr Internal Medicine 03/13/18 11/15/22 Zack Santiago MD [address] [place] [address] Internal Medicine 11/24/21 11/15/22 Zack Santiago MD [address] [place] [address] Internal Medicine 11/24/21 02/27/24 Donato Hale MD [address] [place] [address] Finance Mgr Internal Medicine 11/16/22 documented as of this encounter
--- OUTSIDE RECORDS SUMMARY | 2025-03-18 21:39 | XMS_ITS | Encounter Summary ---
Author Organization [facility] Address [address] [place] [address] Care Team Providers Care Counter Top Assembler Name Role Phone Precious Latesha RUBIO Primary Care Provider Audrey Farooq MD Unavailable Katlin Rodriguez APRN Unavailable [phone] Jorge Abreu MD Unavailable Donato Hale MD Unavailable [phone] Zack Santiago MD Unavailable [phone] Zack Santiago MD Unavailable [phone] Donato Hale MD Unavailable Encounter Details Date Type Department Care Team (Late st Contact Info) Description 02/20/2018 Scanned Document [address] [address] Provider, Generic Social History Tobacco [...] Description 04/27/2025 9:30 AM EST Office Visit [facility] [address] [facility] [address] Latesha Lang APRN [address] [facility], [place] [id number] documented as of this encounter Procedures Procedure Name Priority Date/Time Associated Diagnosis Comments LAB RESULT 02/20/2018 documented in this encounter Results * LAB RESULT (02/20/2018) Narrative 02/20/2018 Ordered by an unspecified provider. us Generic Provider HX AMB PROCEDURES Edited Result - Final documented in this encounter Visit Diagnoses Not on filedocumented in this encounter Care Teams Counter Top Assembler Relationship Specialty Start Date End Date Latesha Lang APRN [address] [facility], [place] [id number] PCP - General Family Medicine 01/18/15 Audrey Farooq MD [address] [place] [address] Physician Ophthalmology 03/13/18 02/27/24 Katlin Rodriguez APRN [address] [facility] [address] [place] [address] Mica Washer Gluer 03/13/18 02/27/24 Jorge Abreu MD [address] [place] [address] [address] [place] [address] Physician Urology 03/13/18 02/27/24 Donato Hale MD [address] [place] [address] [address] [place] [address] Housekeeper/Custodian/Laundry Worker Internal Medicine 03/13/18 11/15/22 Zack Santiago MD [address] [place] [address] Internal Medicine 11/24/21 11/15/22 Zack Santiago MD [address] [place] [phone] Internal Medicine 11/24/21 02/27/24 Donato Hale MD [address] [employer] [address] [place] [address] Housekeeper/Custodian/Laundry Worker Internal Medicine 11/16/22 documented as of this encounter
--- OUTSIDE RECORDS SUMMARY | 2025-03-18 21:39 | XMS_ITS | Encounter Summary ---
Author Organization [facility] Address [address] [place] [address] Care Team Providers Care Director Teen Post Name Role Phone Precious Latesha RUBIO Primary Care Provider Audrey Farooq MD Unavailable Katlin Rodriguez APRN Unavailable [phone] Jorge Abreu MD Unavailable Donato Hale MD Unavailable Zack Santiago MD Unavailable [phone] Zack Santiago MD Unavailable [phone] Donato Hale MD Unavailable Encounter Details Date Type Department Care Team (Late st Contact Info) Description 02/17/2016 Scanned Document [address] [address] Provider, Generic Social History Tobacco [...] EST Office [facility] [address] [place] [address] Latesha Lang APRN [address] [place] [address] documented as of this encounter [...] on filedocumented in this encounter Care Teams Director Teen Post Relationship Specialty Start Date End Date Latesha Lang APRN [address] [place] [address] PCP - General Family Medicine 01/18/15 Audrey Farooq MD [address] [place] [address] Physician Ophthalmology 03/13/18 02/27/24 Katlin Rodriguez APRN [address] [address] Manager Implementation 03/13/18 02/27/24 Jorge Abreu MD [address] [place] [address] Physician Urology 03/13/18 02/27/24 Donato Hale MD [address] [place] [address] Manufacturing Operator Internal Medicine 03/13/18 11/15/22 Zack Santiago MD [address] [place] [address] Internal Medicine 11/24/21 11/15/22 Zack Santiago MD [address] [employer] [address] [place] [address] Internal Medicine 11/24/21 02/27/24 Donato Hale MD [address] [place] [address] Manufacturing Operator Internal Medicine 11/16/22 documented as of this encounter
--- OUTSIDE RECORDS SUMMARY | 2025-03-18 21:39 | XMS_ITS | Encounter Summary ---
Author Organization [facility] Address [address] [place] [address] Care Team Providers Care Driveway Attendant Name Role Phone Precious Latesha RUBIO Primary Care Provider Audrey Farooq MD Unavailable Katlin Rodriguez APRN Unavailable [phone] Jorge Abreu MD Unavailable Donato Hale MD Unavailable [phone] Zack Santiago MD Unavailable [phone] Zack Santiago MD Unavailable [phone] Donato Hale MD Unavailable [phone] Encounter Details Date Type Department Care Team (Late st Contact Info) Description 07/14/2016 Scanned Document [address] [address] Provider, Generic Social History Tobacco [...] Description 04/27/2025 9:30 AM EST Office [facility] [address] [place] [phone] Latesha Lang APRN [address] [facility] [place] [address] documented as of this encounter Visit Diagnoses Not on filedocumented in this encounter Care Teams Driveway Attendant Relationship Specialty Start Date End Date Latesha Lang APRN [address] [facility], [place] [id number] PCP - General Family Medicine 01/18/15 Audrey Farooq MD [facility] [place] [address] Physician Ophthalmology 03/13/18 02/27/24 Katlin Rodriguez APRN [address] [place] [address] Vegetable Buncher 03/13/18 02/27/24 Jorge Abreu MD [address] [place] [address] Physician Urology 03/13/18 02/27/24 Donato Hale MD [address] [place] [address] Change Management Director Internal Medicine 03/13/18 11/15/22 Zack Santiago MD [address] [employer] [address] [place] [address] Internal Medicine 11/24/21 11/15/22 Zack Santiago MD [address] [place] [address] Internal Medicine 11/24/21 02/27/24 Donato Hale MD [address] [place] [address] Change Management Director Internal Medicine 11/16/22 documented as of this encounter
== END 2025-03-18 15:33 | disposition home or self-care (01) ==
LOC: HO.HKAE 15:24
PROVIDERS: PCP Nurse Practitioner Family; Visit Provider Internal Medicine Hypertension Specialist
DX: I10 Essential (primary) hypertension (principal)
CPT/HCPCS: 99214

== ENCOUNTER → 2025-03-18 15:23 | Outpatient (BNVA) | payer MEDICARE, SELFPAY | PROVIDERS: PCP Nurse Practitioner Family; Visit Provider Internal Medicine Hypertension Specialist | DX: I10 Essential (primary) hypertension (principal) | CPT/HCPCS: 99212 ==